=== PATIENT | female | born 1975 | race Caucasian/White ===

== ENCOUNTER → 2019-11-17 15:47 | Outpatient (BNVA) | payer OTHER, SELFPAY | PROVIDERS: Family Provider Internal Medicine; PCP Internal Medicine; Visit Provider Internal Medicine | DX: E10.9 Type 1 diabetes mellitus without complications (principal); E11.9 Type 2 diabetes mellitus without complications; E66.9 Obesity, unspecified; R30.0 Dysuria | CPT/HCPCS: 83036; 85025 ==

== ENCOUNTER 2020-07-03 12:04 | Outpatient (CLI) | payer BC, SELFPAY ==
[2020-07-03 12:26] VITALS: BMI 32.4
--- NOTE | 2020-07-03 12:37 | PC.NURSE ---
Pt rescheduled Pt on schedule as treadmill stress test with no nuclear images. Order reads treadmill stress and in comments with nuclear imaging . Pt rescheduled d/t no nuclear dose ordered d/t scheduled incorrectly. Scheduling called and states pt will need to be re-certified for correct test and will call pt with appt date and time.
== END 2020-07-03 12:05 | disposition home or self-care (01) ==
PROVIDERS: PCP Internal Medicine; Visit Provider Internal Medicine
DX: R07.89 Other chest pain (principal)
CPT/HCPCS: 80053; 80061; 83036; 83550; 84443; 85025

== ENCOUNTER 2020-08-01 07:22 | Outpatient (CLI) | payer BC, SELFPAY ==
[2020-08-01 07:32] VITALS: BMI 33.6
--- NOTE | 2020-08-01 07:38 | ECG_ITS ---
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 Interpretive Statements NAME OF STUDY: EXERCISE SESTAMIBI STRESS TEST INDICATION: [Atypical Chest Pain] EXERCISE DATA: The patient was exercised by Juan Pablo protocol. Baseline heart rate was 97 beats per minute. Baseline blood pressure was 136/80 millimeters of mercury. Target heart rate was 148 beats per minute. Maximum heart rate achieved was 167, which was 112% of the target heart rate. Maximum blood pressure was 214/79millimeters of mercury. Total exercise time was 5 minutes 43 seconds. Maximum METs achieved was 7, maximum VO2 was 24.5. The reason for ending the test was achievement of target heart rate. The patient complained of shortness of breath during the stress test, which then resolved at the end of the test. ELECTROCARDIOGRAM: BASELINE: Showed sinus rhythm, normal axis, no significant ST-T changes at the baseline noted. [] EXERCISE: At the peak exercise level, [] No significant ST-T changes suggestive of ischemia noted. [] RECOVERY: During the recovery period, heart rate dropped appropriately. No significant ST-T changes in the recovery suggestive of ischemia noted. [] CONCLUSION: 1. Exercise capacity fair. 2. Heart rate response was appropriate 3. Blood pressure response was hypertensive 4. Symptoms not suggestive of ischemia. 5. Electrocardiogram portion of the stress test was not suggestive of ischemia. 6. Nuclear scan will be documented separately. Electronically Signed On 08-12-2020 12:14:28 CDT by Jorden Moreno M.D. [id number]
--- NOTE | 2020-08-01 07:39 | NMCV_ITS ---
NM desire perf SPECT r/s* [id number] Melina Hopknis Age: 45 Gender: F : 1975 Exam Date: 08/01/2020 08:50 Ordering Phys: Magdi Ricks MD Technologist: DIEGO Petit Exam Location: [facility] Indications: CHEST PAIN STRESS TEST Please see separate stress test report in Ephiphany for full findings IMAGE PROTOCOL Rest/Stress 1 Exercise Day Radiopharmaceutical Dose (mCi) Administration Site Administered by Rest: Tc-99m 10.8 IV DIEGO Petit Sestamibi Stress:Tc-99m 32.7 IV DIEGO White Sestamibi Rest: 01-Aug-2020 60 Discovery 630 Stress: 01-Aug-2020 15 Discovery 630 Radiopharmaceutical was injected at 87 % maximum heart rate. Images obtained in supine and prone position. SPECT RESULTS Technical Quality: Excellent Raw Data Analysis: Normal, Breast attenuation Image Corrections: No attenuation or motion correction applied Summed Stress Score: 2 Summed Rest Score: 1 Summed Difference Score: 2 PERFUSION FINDINGS There is a small in size, partially reversible perfusion defect in the apical lateral wall. FUNCTIONAL RESULTS (calculated via Gated SPECT) Stress Image LV EF (%): 81 Stress EDV (mL):36 TID: 0.68 Stress ESV (mL):7 FUNCTIONAL FINDINGS: There is normal left ventricular systolic function. IMPRESSIONS 1. There is a small in size, mild in intensity, partially reversible perfusion defect in apical latera wall. It likely represents prior small infarct with mild roselyn-infarct ischemia. 2. LV systolic function is normal Jorden Moreno MD (Electronically Signed) Final Date: 01 August 2020 11:49 S
[2020-08-01 10:15] VITALS: BP 136/87; PULSE 105
== END 2020-08-01 07:23 | disposition home or self-care (01) ==
LOC: CDL 07:24
PROVIDERS: PCP Internal Medicine; Visit Provider Internal Medicine
DX: R07.89 Other chest pain (principal)
CPT/HCPCS: 78452; 93017; A9500

== ENCOUNTER 2020-09-11 05:55 | Day surgery (SDC) | payer BC, SELFPAY ==
[2020-09-08 08:37] LABS: Basophils # 0.1 10^3/uL (0.0-0.1); Basophils % 0.7 %; Eosinophils # 0.3 10^3/uL (0.0-0.8); Eosinophils % 2.7 %; Hematocrit 42.6 % (37.0-47.0); Hemoglobin 14.1 g/dL (11.5-15.3); Lymphocytes # 2.3 10^3/uL (0.8-4.8); Lymphocytes % 24.4 %; Mean Corpuscular HGB Conc 33.1 g/dL (30.0-36.0); Mean Corpuscular Hemoglobin 29.5 pg (28.0-34.0); Mean Corpuscular Volume 89.1 fL (81-99); Mean Platelet Volume 11.4 fL (7.4-10.4); Monocytes # 0.6 10^3/uL (0.2-0.9); Monocytes % 6.7 %; Neutrophils # 6.24 10^3/uL (1.8-7.7); Neutrophils % 65.3 %; Nucleated Red Blood Cells % 0 %; Platelet Count 133 10^3/cmm (130-400); Red Blood Count 4.78 10^6/uL (4.1-5.3); Red Cell Distribution Width 12.4 % (12.1-15.1); White Blood Count 9.6 10^3/uL (4.0-10.0)
[2020-09-08 08:55] LABS: Anion Gap 13.1 (5-19); Blood Urea Nitrogen 17 mg/dL (6-20); Calcium 8.3 mg/dL (8.5-10.5); Carbon Dioxide 27 mmol/L (22-29); Chloride 98 mmol/L (98-107); Glomerular Filtration Rate 77.6 mL/min (90-130); Glucose 241 mg/dL (65-115); Osmolality Calculated 287 mOsm/kg (285-295); Potassium 4.1 mmol/L (3.5-5.1); Sodium 134 mmol/L (136-145)
[2020-09-08 09:19] LABS: INR 0.95 (0.83-1.21)
[2020-09-11] VITALS (62 sets, daily range): BP systolic 91–145; BP diastolic 44–92; PULSE 76–96; RESP 7–29; TEMP 36.6–36.7; O2SAT 94–99; BMI 31.5
--- NOTE | 2020-09-11 06:00 | XACV_ITS ---
Ht: 160 cm Wt: 85 kg BSA: 1.98 m2 Gender: Female : 1975 Any Known Allergies: Other Exam Priority: Routine Procedure(s): Procedure Description: Diagnostic procedure Procedure Description: PCI procedure Procedure Description: Drug Eluting Coronary Stent Procedure Description: PTCA Procedure Description: Coronary Angiography Diagnostic Cath Status: Elective Diagnostic Findings * INDICATION: Dyspnea on exertion/chest pain/ abnormal stress test. * Left Main has no significant disease. * Circumflex has no significant disease. * Mid Left Anterior Descending: significant 75% stenosis, ELISABETH: 3 flow. * Proximal Right Coronary Artery: significant 80% stenosis, ELISABETH: 3 flow. * Mid Right Coronary Artery to Distal Right Coronary Artery: significant 80% stenosis, ELISABETH: 3 flow. * Distal Right Coronary Artery: significant 80% stenosis, ELISABETH: 3 flow. * Coronary angiography shows right dominance. PCI Status: Elective PCI Indication: Other Interventional Findings * PROCEDURE DETAIL: We engaged left main artery with a JL 3.5 guide catheter. IV heparin was administered to maintain an ACT above 250 seconds. A 0.014 run-through guidewire was used to cross the stenosis and was placed in distal LAD. We used a 2.25 x 15 mm semicompliant balloon to predilate the stenosis in the mid LAD. This was followed by deployment of a 2.5x30mm Resolute Lyndon drug eluting stent. At this time final angiogram was performed that showed excellent stent expansion, ELISABETH-3 flow and no residual stenosis. Guidewire and guide catheter. * Mid Left Anterior Descendin% stenosis treated with a AB TREK 2.25X15 RX BALLOON, and MDT R LYNDON 2.5X30 SONIDO. 0% residual stenosis, ELISABETH: 3 flow. Conclusions 1. There is significant coronary artery disease with two vessel disease. 2. Mid Left Anterior Descending was treated with a Balloon, and Drug Eluting Stent. Recommendations * Transfer to CSU. * Aspirin and plavix for atleast 1 year. * High intensity statin therapy. * We will plan on staged PCI of the proximal to distal RCA in 3-4 weeks. * Outpatient cardiology follow up in 7 -10 days. Interventional RX Recommendation: PCI w/o planned CABG Diagnostic RX Recommendation: PCI w/o planned CABG Anticoagulation: Heparin Pressures Phase:Rest AO : 118 / 83 ( 93 ) @ 7:13:00 AM Clinical Evaluation EBL: 5mL-10mL Procedural Details Procedure Consent Obtained. Pre-Procedure Time Out. Identified patient by full name and date of as verbalized by the patient/guarantor. Does the consent match the physician's order: Yes. Accurate & Complete Informed Consent: Yes. Inpatient/Outpatient History & Physical on Chart: Yes. If H&P is completed, is and addenduem needed: No; If yes, is the addendum complete: N/A. Visualize and Verify Site with Patient/Guarantor: N/A. Relevant Radiology Images available: N/A. Pre-op teaching completed and patient verbalized understanding. The risks, benefits, and alternatives of sedation and/or procedure were discussed by physician. The patient agrees to continue. Procedure started. [facility] Clinical Fraility Score: 3: Managing Well. Shingle Inspector Indications: Worsening Angina, abnormal stress test. Chest Pain Symptom Assessment: Atypical Angina. Cardiovascular Instability: No. Correct patient, site and procedure confirmed by cath team. PERRLA. Strong, equal hand behavioral specialist bilaterally. Lungs clear x 5 lobes. IV Site on Arrival: 20 gauge in the left anticubital. IV Fluids: 0.9% NaCl at KVO. 0 mL infused prior to test lab technician. Pre Procedural Pulses: right dorsalis pedis was 2+. Pre Procedural Pulses: left dorsalis pedis was Doppled. Pre Procedural Pulses: bilateral posterior tibial was Doppled. Pre Procedural Pulses: right radial was 2+. Oxygen started at 2liters/min via nasal canula. right groin was prepped with chloroprep then draped in the usual sterile fashion. right radial was prepped with chloroprep then draped in the usual sterile fashion. Baseline sample Acquired. HR: 88 BPM. Equipment: 6F - Radial. Cardiac Cath Pack. ACIST Manifold Kit Model BT 2000. Heparinized Saline (2 units/mL), 1000 mL bag. Physician notified. Physician arrived. Physician scrubbed in. Immediate Pre-Procedure Time Out. Correct Patient: Yes; Correct Procedure: Yes; Correct Site: Yes; Correct Patient Position: Yes; Correct Supplies: Yes; Dried Flammable Prep: Yes; Blood Products Available: N/A;. Lidocaine 1% infiltrated to the right radial. Arterial access obtained. Unable to use Radial access due to spasm. Physician moving to femoral approach. A TR Band was successful obtaining hemostatsis at the Right Radial artery insertion site. TR band placed. Hemostasis obtained. Lidocaine 1% infiltrated to the right groin. Arterial access obtained with micropuncture set. A 5 dutch JL4 catheter in over wire. Catheter removed over the standard wire. A 5 dutch JR4 catheter in over wire. Multiple views taken of right coronary artery. Catheter removed over the standard wire. A 5 dutch JL3.5 catheter in over wire. Multiple views taken of left coronary artery. Catheter removed over the standard wire. Attempt to call Dr Ferguson to discuss case. No answer. Attempt to call Dr Jackson. He is currently scrubbed in the OR. Sheath flushed periodically to maintain patency. Inventory is CRD 6FR XB 3 GUIDE. 6 dutch XB 3 guide catheter was inserted over the wire. Guide catheter out. Inventory is CRD 6FR JL 3.5 GUIDE. 6 dutch JL 3.5 guide catheter was inserted over the wire. Runthrough guidewire was advanced through the guide catheter to lesion in the prox LAD. Wire out. Runthrough guidewire was advanced through the guide catheter to lesion in the mid LAD. Wire out. Family updated. Runthrough guidewire was advanced through the guide catheter to lesion in the mid LAD. Inflation number : 1 A AB TREK 2.25X15 RX BALLOON was prepped and advanced across the Mid LAD , then inflated to 0 [place] for 0:12 seconds. Inflation number: 2 The AB TREK 2.25X15 RX BALLOON was reinflated across the Mid LAD, to 12 [place] for 0:27 seconds. Inflation number: 3 The AB TREK 2.25X15 RX BALLOON was reinflated across the Mid LAD, to 12 [place] for 0:29 seconds. Balloon out. Results checked. Inflation Number : 4 A FAITH Rodríguez LYNDON 2.5X30 SONIDO -Lot Number# [id number] exp date 02/20/2022 was prepped and advanced across the Mid LAD. The stent was deployed at 12 [place] for 0:27 seconds. Stent balloon out over wire. Results checked. Wire out. Guide catheter out. A Suture was successful obtaining hemostatsis at the Right Femoral artery insertion site. Sheath(s) sutured into position with 2-0 silk and sterile 4x4's and Op-site applied over the site. No oozing or signs and symptoms of hematoma noted. Arterial sheath flushed and connected to tranducer and pressure bag with heparinized saline. Post Procedure: Pulses reassessed and unchanged. PERRLA. Strong, equal hand behavioral specialist bilaterally. No VTE prophylaxis required. Physician scrubbed out. Contrast type used: Omnipaque 300 mgI/mL, 500 mL bottle. Post-op diagnosis: severe mid LAD and RCA stenosis. Complications: none. Estimated blood loss: 5mL-10mL. PCI Indication: abnormal stress test, MID LAD stenosis and RCA stenosis. Total IV fluids: 100 mL. Medication's Wasted: Lidocaine 1% = 10 mL. Medication's Wasted: Nitro = 49.6 mg. Medication's Wasted: Verapamil = 5 mg. Medication's Wasted: Heparin = 1000 units. Medication's Wasted: Other = versed 1 mg. Procedure completed. Patient transferred by bed to 1st floor. Vital chart was stopped. Access Site Site: Right Radial artery Sheath Size: 6 Fr Hemostasis Method: TR Band Hemostasis Success: Successful Site: Right Femoral artery Sheath Size: 6 Fr Hemostasis Method: Suture Hemostasis Success: Successful Procedure Medications Start: 7:45 AM Stop: 7:45 AM Medication: Versed Amount: 1 mg Route: I.V. Start: 7:45 AM Stop: 7:45 AM Medication: Fentanyl Amount: 25 mcg Route: I.V. Start: 7:55 AM Stop: 7:55 AM Medication: Fentanyl Amount: 25 mcg Route: I.V. Start: 7:56 AM Stop: 7:56 AM Medication: Nitrogylcerin Amount: 200 mcg Route: I.A. Start: 7:57 AM Stop: 7:57 AM Medication: Versed Amount: 1 mg Route: I.V. Start: 8:31 AM Stop: 8:31 AM Medication: Heparin Amount: 8000 units Route: I.V. Start: 8:33 AM Stop: 8:33 AM Medication: Versed Amount: 1 mg Route: I.V. Start: 8:35 AM Stop: 8:35 AM Medication: Fentanyl Amount: 25 mcg Route: I.V. Start: 8:40 AM Stop: 8:40 AM Medication: Fentanyl Amount: 25 mcg Route: I.V. Start: 8:51 AM Stop: 8:51 AM Medication: Nitrogylcerin Amount: 200 mcg Route: I.C. Start: 8:55 AM Stop: 8:55 AM Medication: Aggrastat 12.5 mg/250 mL Amount: 43 ml Route: I.V. bolus Start: 8:55 AM Stop: 8:55 AM Medication: Aggrastat 12.5 mg/250 mL Amount: 15.5 ml/hr Route: I.V. bolus Start: 9:01 AM Stop: 9:01 AM Medication: Plavix Amount: 600 mg Route: P.O. I, the attending physician, have reviewed and verified all procedure medications. Yes, all medications given per verbal order History/Risk Factors Hypertension: Yes Dyslipidemia: Yes Peripheral Arterial Disease (PAD): No Myocardial Infarction (IN): No Obesity: No Renal Disease: No Prior Interventions PCI: No CABG: No Valve Surgery: No Report Signatures Finalized by Jorden Moreno MD on 09/18/2020 02:26 PM
[2020-09-11] MEDS: diphenhydrAMINE 50 mg Capsule PO (06:32)
[2020-09-11 06:39] LABS: SARS Covid-2 Antigen Negative (Negative)
--- NOTE | 2020-09-11 07:46 | P.HP_ITS ---
Same Day Surgery H&P Indication for Procedure/HPI DATE OF PROCEDURE: September 11, 2020 CHIEF COMPLAINT/INDICATIONFOR SURGICAL PROCEDURE: Dyspnea on exertion/abnormal stress test PREOP DIAGNOSIS: Dyspnea on exertion/abnormal stress test PLANNED PROCEDRUE: Operation Date: 09/11/20 07:00 Proposed Procedures p left Cardiac Catheterization 49722 r94.39(Left) - Jorden Moreno M.D Possible percutaneous coronary intervention 45 yo woman with PMHx of type 1 DM since age 6 ([id number]-4), HTN, hypothyroidism, gestational hypertension, CKD and family h/o CAD. She complained of chest pressure, SOB, palpitations and nausea. Patient underwent stress test that was abnormal ROS CONSTITUTIONAL: No fever chills weight loss or gain or night sweats. [] HEENT: Normocephalic, atraumatic.[] RESPIRATORY: No cough, sputum, hemoptysis or wheezing.[] CARDIOVASCULAR: Has shortness of breath, chest pain,no PND, orthopnea, lower extremity edema, presyncope or syncope. [] GI: no nausea vomiting diarrhea. [] PAPER GOODS MACHINE OPERATOR: No numbness, tingling, weakness or loss of function in any part of the body. [] MUSCULOSKELETAL: No knee or joint pain or rashes. [] Medications/Allergies* Home Medications Medication Instructions Recorded Confirmed Type aspirin 325 mg tablet 325 mg PO DAILY 08/08/20 09/08/20 History omega-3 fatty acids [Fish Oil 1 tab PO BID 08/08/20 09/08/20 History Concentrate] losartan 100 mg PO DAILY 09/08/20 09/08/20 History Allergies/Adverse Reactions Allergy/AdvReac Type Severity Reaction Status Date / Time sulfamethoxazole Allergy Unknown Verified 08/08/20 09:55 [From Bactrim] trimethoprim [From Bactrim] Allergy Unknown Verified 08/08/20 09:55 vancomycin Allergy Unknown Verified 08/08/20 09:55 codeine AdvReac ADR-Vomitin Verified 08/08/20 09:55 g Current Medications: Generic Name Dose Route Start Last Admin Trade Name Freq PRN Reason Stop Dose Admin Sodium Chloride 1,000 mls @ 50 mls/hr 09/11/20 06:00 09/11/20 06:33 Sodium Chloride 0.9% IV 09/12/20 01:59 Not Given .Q20H ONE Pertinent History/Comorbid Conditions* Medical History (Updated 08/10/20 @ 21:42 by Maru Ferguson MD) DM type 1 (diabetes mellitus, type 1) Dyslipidemia Obesity Family History (Updated 08/08/20 @ 09:41 by Antonietta Townsend RN) Diabetes Father CAD (coronary artery disease) Father Arthritis Father FH: CABG (coronary artery bypass surgery) Father x3 Social History Smoking and tobacco status: never smoked Alcohol intake: never Adopted: No Marital status: Number of children: 1 service: No History of recent travel: No Pertinent Exam Findings alert, oriented x 3, clear to auscultation bilaterally and regular rate & rhythm Conscious Sedation Assessment PATIENT ASSESSED PRIOR TO SEDATION, WITH NO CHANGE NOTED: Yes AIRWAY EVAL/ANESTHESIA PLAN: normal airway, ASA III, Monitored Anesthesia, Local Anesthesia, Risks, benefits & alternatives of sedation and/or procedure di scussed and Patient agrees to continue as planned Recommendations Surgery/Procedure today (Left heart cath with possible percutaneous coronary intervention) Coding Level of Care Code Acute Pigment And Lacquer Mixer for Chente Harrell
[2020-09-11] MEDS: sodium chloride 0.9% 1,000 ML 100 ML IV (09:39)
--- NOTE | 2020-09-11 09:54 | PC.NURSE ---
Patient to CSU from metallurgy laboratory technician at 0915. 2 nurse verification of right radial and groin access sites, asymptomatic. Aggrastat running at 15.5 ml/hr. Patient educated on activity restrictions, verbalized understanding of teaching and did not have any further questions. Patient oriented room and call light. Nurse to continue to monitor.
--- NOTE | 2020-09-11 10:59 | PC.NURSE ---
Patient unable to void on bed bennett, bladder distended and painful. Dr. Moreno notified. telephone order to place mcdonald while on bedrest. Discontinue once patient can ambulate. RBTO.
--- NOTE | 2020-09-11 11:06 | PC.NURSE ---
Aggrastat off at this time per written order.
[2020-09-11 12:56] LABS: Partial Thromboplastin Time 87.2 SECONDS (23.9-36.7)
--- NOTE | 2020-09-11 14:14 | PC.NURSE ---
TR band removed at 1400. Air removed slowly per protocol. Site asymptomatic. Dressing applied, CDI. Patient tolerated well. Patient reeducated on activity restrictions, verbalized understanding. Nurse to continue to monitor.
--- NOTE | 2020-09-11 16:00 | PC.NURSE ---
Sheath pull Sheath pulled at 1542 per protocol. Direct pressure held for 20 minutes until hemostasis achieved. Patient tolerated well. Incision asymptomatic. Dressing applied. Patient reeducated on activity restrictions. Verbalized understanding. Nurse to continue to monitor.
--- NOTE | 2020-09-11 18:29 | PC.NURSE ---
Patient brought home medication bottles. Nurse compared to med rec. Med rec was updated. Dr. Moreno notified. Telephone order to continue metoprolol tartrate and atorvastatin. RBTO.
[2020-09-11] MEDS: metoprolol tartrate 25 mg Tablet PO (21:03)
[2020-09-12 03:47] VITALS: BP 138/70; PULSE 85; RESP 21; TEMP 36.8; O2SAT 98
[2020-09-12 05:04] LABS: Basophils # 0.1 10^3/uL (0.0-0.1); Basophils % 0.4 %; Eosinophils # 0.4 10^3/uL (0.0-0.8); Eosinophils % 3.6 %; Hematocrit 42.4 % (37.0-47.0); Hemoglobin 13.9 g/dL (11.5-15.3); Lymphocytes # 2.2 10^3/uL (0.8-4.8); Lymphocytes % 19.5 %; Mean Corpuscular HGB Conc 32.8 g/dL (30.0-36.0); Mean Corpuscular Hemoglobin 29.1 pg (28.0-34.0); Mean Corpuscular Volume 88.9 fL (81-99); Mean Platelet Volume 10.8 fL (7.4-10.4); Monocytes # 0.7 10^3/uL (0.2-0.9); Neutrophils # 7.87 10^3/uL (1.8-7.7); Neutrophils % 70.1 %; Nucleated Red Blood Cells % 0 %; Platelet Count 131 10^3/cmm (130-400); Red Blood Count 4.77 10^6/uL (4.1-5.3); Red Cell Distribution Width 12.6 % (12.1-15.1); White Blood Count 11.3 10^3/uL (4.0-10.0)
[2020-09-12 05:20] VITALS: PULSE 81
[2020-09-12 05:28] LABS: Anion Gap 10.7 (5-19); Blood Urea Nitrogen 14 mg/dL (6-20); Calcium 8.4 mg/dL (8.5-10.5); Carbon Dioxide 29 mmol/L (22-29); Chloride 103 mmol/L (98-107); Creatinine Clr Calc Pharmacy 102.1161; Glomerular Filtration Rate 90.5 mL/min (90-130); Glucose 67 mg/dL (65-115); Osmolality Calculated 287 mOsm/kg (285-295); Potassium 3.7 mmol/L (3.5-5.1); Sodium 139 mmol/L (136-145)
[2020-09-12 07:49] VITALS: BP 133/69; PULSE 89; RESP 16; TEMP 37.1; O2SAT 97
--- NOTE | 2020-09-12 08:43 | P.DS_ITS ---
Discharge Providers Date of Admission: September 11, 2020 Date of Discharge: September 12, 2020 Attending Provider at Admission: Jorden Moreno MD Attending Provider at Discharge: Jorden Moreno M.D Primary Care Provider: Magdi Ricks MD Reason for Visit Reason for Visit: [facility] Brief History: 45 yo woman with PMHx of type 1 DM since age 6 (HiP0W-7), HTN, hypothyroidism, gestational hypertension, CKD and family h/o CAD. She complained of chest pressure, SOB, palpitations and nausea. Patient underwent stress test that was abnormal. Plan for left heart cath with possible percutaneous coronary intervention Hospital Course Hospital Course 45 yo woman with PMHx of type 1 DM since age 6 (RjA7T-1), HTN, hypothyroidism, gestational hypertension, CKD and family h/o CAD. She complained of chest pressure, SOB, palpitations and nausea. Patient underwent stress test that was abnormal Left heart cath showed severe multiple RCA stenosis with poor target for bypass. She also had a severe mid LAD stenosis which underwent successful revascularization with SONIDO. Plan for staged revascularization of the RCA in 3-4 weeks. She was put on aspirin and plavix. Overnight was observed. Access site normal without any complaints. Patient discharged in a stable condition. Physical Exam Narrative: EXAM NARRATIVE: GENERAL: Patient is alert, awake and oriented x3. [] NECK: No jugular vein distension. [] HEENT: No cyanosis. No icterus. No pallor. [] HEART: Regular S1 and S2. No murmur, rub or gallop. [] LUNGS: Clear to auscultate bilaterally. [] ABDOMEN: Soft, nontender and nondistended. Positive bowel sounds. No guarding, rebound or tenderness. [] CENTRAL NERVOUS SYSTEM: Grossly nonfocal. [] EXTREMITIES: Lower extremities with no edema bilaterally. Pulses palpable in the lower extremities, both dorsalis pedis and posterior tibial. 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 Routin e Exams 09/11/20 06:00 Taken Labs from last 24 hours 09/12/20 09/12/20 09/11/20 04:26 04:26 14:13 WBC 11.3 H RBC 4.77 Hgb 13.9 Hct 42.4 MCV 88.9 MCH 29.1 MCHC 32.8 RDW 12.6 Plt Count 131 MPV 10.8 H Neut % (Auto) 70.1 Lymph % (Auto) 19.5 [place] % (Auto) 6.0 Eos % (Auto) 3.6 Baso % (Auto) 0.4 Neut # (Auto) 7.87 H Lymph # (Auto) 2.2 [place] # (Auto) 0.7 Eos # (Auto) 0.4 Baso # (Auto) 0.1 Nucleated RBC % (a uto) 0 Nucleated RBCs # 0.0 APTT 31.0 D Sodium 139 Potassium 3.7 Chloride 103 Carbon Dioxide 29 Anion Gap 10.7 BUN 14 Creatinine 0.7 GFR Calculation 90.5 Glucose 67 Calculated Osmolal ity 287 Calcium 8.4 L 09/11/20 12:15 WBC RBC Hgb Hct MCV MCH MCHC RDW Plt Count MPV Neut % (Auto) Lymph % (Auto) [place] % (Auto) Eos % (Auto) Baso % (Auto) Neut # (Auto) Lymph # (Auto) [place] # (Auto) Eos # (Auto) Baso # (Auto) Nucleated RBC % (a uto) Nucleated RBCs # APTT 87.2 H Sodium Potassium Chloride Carbon Dioxide Anion Gap BUN Creatinine GFR Calculation Glucose Calculated Osmolal ity Calcium Vitals: Last Vital Signs Temp 98.7 F 09/12/20 07:49 Pulse 89 09/12/20 07:49 Resp 16 09/12/20 07:49 BP 133/69 09/12/20 07:49 Pulse Ox 97 09/12/20 07:49 Discharge Plan Discharge Patient Disposition: Home Condition: Stable Prescriptions: New aspirin 81 mg Tablet,Delayed Release (Dr/Ec) 81 mg PO DAILY Qty: 90 RF: 3 Continued losartan 100 mg Tablet 100 mg PO DAILY RF: 0 spironolacton-hydrochlorothiaz 25-25 mg Tablet 1 tab PO DAILY RF: 0 levothyroxine 150 mcg Tablet 150 mcg PO DAILY RF: 0 montelukast 10 mg Tablet 10 mg PO DAILY RF: 0 duloxetine 60 mg Capsule, Delayed Rel Sprinkle 60 mg PO DAILY RF: 0 metoprolol tartrate 25 mg tablet 25 mg PO BID RF: 0 red yeast rice 600 mg Capsule 1,200 mg PO DAILY RF: 0 Changed atorvastatin 20 mg tablet 40 mg PO BEDTIME Qty: 0 RF: 0 Discontinued aspirin 325 mg Tablet 325 mg PO DAILY RF: 0 No Action Brilinta 90 mg tablet 90 mg PO BID Qty: 60 RF: 0 prednisone 10 mg tablet 10 mg PO BID Qty: 14 RF: 0 Humalog KwikPen Insulin 100 unit/mL insulin pen See Rx Instructions .ROUTE .COMPLEX RF: 0 [place] 3 Fish Oil 1,000 mg PO DAILY RF: 0 (DME) Omnipod Insulin Management RF: 0 insulin lispro See Rx Instructions .ROUTE .COMPLEX RF: 0 Benadryl 50 mg Capsule 50 mg PO TID RF: 0 famotidine 20 mg Tablet 20 mg PO BID RF: 0 Discharge Orders: Discharge Order (Routine); Ordered 09/12/20 Ordered By: Jorden Moreno Referrals: Rhonda Moss FNP [Nurse Practitioner] - 7-10 days (Please follow-up with Rhonda Moss on September 19 at 10:00A.M. If you have any questions or need to reschedule. Please call ) Maru Ferguson MD [Physician] - 1 month (Please follow-up with Dr. Ferguson on October 13 at 8:45A.M. If youhave any questions or need to reschedule. Please call ) Discharge Diet: Cardiac and Diabetic Discharge Activity: Increase activity as tolerated Patient Instructions: Clopidogrel (By mouth), Left Heart Catheterization (DC), Post Angiogram Home Care Instructions Activity Restrictions/Additional Instructions: Please do not lift more than 5 pounds of weight for the next 5 days Discharge Attestations Time Spent in Discharge Care*: less than 30 min Quality Metrics Clinical Quality Measures During this hospital stay, did patient experience: None Coding Level of Care Code Acute Chg FW DC note
[2020-09-12] MEDS: duloxetine 60 mg Capsule PO (09:08)
[2020-09-12] MEDS: aspirin 81 mg EC Tablet PO (09:09)
[2020-09-12] MEDS: clopidogrel 75 mg Tablet PO (09:10)
[2020-09-12] MEDS: levothyroxine 150 mcg Tablet PO (09:10)
[2020-09-12 09:11] VITALS: BP 111/64
[2020-09-12] MEDS: losartan 50 mg Tablet 100 MG PO (09:11)
[2020-09-12] MEDS: metoprolol tartrate 25 mg Tablet PO (09:13)
[2020-09-12 09:29] VITALS: BP 111/64; PULSE 90; RESP 12
[2020-09-12 09:30] VITALS: BP 111/64; PULSE 79; RESP 18; TEMP 36.7; O2SAT 93
== END 2020-09-12 09:45 | disposition home or self-care (01) ==
LOC: CCL 05:56 → CSU 09:14
PROVIDERS: Internal Medicine Cardiovascular Disease; PCP Internal Medicine; Visit Provider Internal Medicine
DX: I25.10 Atherosclerotic heart disease of native coronary artery without angina pectoris (principal); R07.89 Other chest pain; E03.9 Hypothyroidism, unspecified; E11.22 Type 2 diabetes mellitus with diabetic chronic kidney disease; I12.9 Hypertensive chronic kidney disease with stage 1 through stage 4 chronic kidney disease, or unspecified chronic kidney disease; N18.9 Chronic kidney disease, unspecified; Z82.49 Family history of ischemic heart disease and other diseases of the circulatory system; E78.5 Hyperlipidemia, unspecified; E66.9 Obesity, unspecified; Z68.31 Body mass index [BMI] 31.0-31.9, adult; Z83.3 Family history of diabetes mellitus
CPT/HCPCS: 36415; 51702; 80048; 85025; 85610; 85730; 87426; 93454; C1725; C1769; C1874; C1887; C1894; C9600; J1644; J2250; J3010; J3246; J3490; J7030; Q0163; Q9967

== ENCOUNTER 2020-09-16 16:41 | Inpatient (IN) | payer BC, SELFPAY ==
[2020-09-16 17:08] VITALS: BP 120/74; PULSE 105; RESP 16; TEMP 37.3; O2SAT 97; BMI 32.5
[2020-09-16 17:43] VITALS: BP 128/74; PULSE 105; RESP 20; O2SAT 98
--- NOTE | 2020-09-16 17:43 | ECG_ITS ---
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 [id number]
--- NOTE | 2020-09-16 17:46 | W.ED.SKABFB ---
Documented by User: Deo Hassan DO 09/18/20 07:51 HPI - Skin/Abscess/Foreign Bdy General: Chief complaint: Skin/Abscess/Foreign Body Stated complaint: Rash; High BS; RCR fever; Phyllis sent over Time Seen by Provider: 09/16/20 17:20 History of Present Illness: HPI narrative: 45-year-old female presents with a petechial rash. On 09 11 she had an angiogram done had a single drug-eluting stent placed and then was started on Plavix she was discharged home the next day after single dose of Plavix regaining the rest gotten progressively worse since then she seen Dr. Dozier yesterday she been taking Benadryl she was started on steroids and was changed to Brilinta presents today because the rash is actually worsening no chest pain no tightness no shortness of breath. Patient is diabetic and is noted blood sugars have been exceptionally high. She usually uses an insulin pump and has very good control now she is taking it regularly above 400. complaint: rash Onset (ago): minute(s) Location: generalized Quality: pruritic Relieving factors: medication (Antihistamines) and other Context: new medication Associated symptoms: Reports itching; Deny arthralgias, chills, cough, fever(s), myalgias, nausea, rigidity, short of breath or vomiting Treatments prior to arrival: none Review of Systems Const: Denies: fever(s) or chills ENMT: Denies: throat pain, ear or mastoid pain, nasal discharge or nasal congestion Card: Denies: chest pain, edema, dyspnea on exertion or orthopnea Resp: Denies: dyspnea, productive cough or non-productive cough GI: Denies: nausea or vomiting : Denies: flank pain, difficulty voiding, dysuria, urinary frequency or urinary urgency Skin/Breast: Reports: rash; Denies: pruritus PFSH ED PFSH: Medical History CAD (coronary artery disease) Diabetic retinopathy DM type 1 (diabetes mellitus, type 1) Dyslipidemia Gestational hypertension Hypothyroidism Obesity Surgical History History of appendectomy (08/05/14) with lysis of adhesions History of History of cholecystectomy History of eye surgery multiple both eyes for retinopathy, legally blind right eye S/P cardiac catheterization (09/11/20) S/P coronary artery stent placement (09/11/20) Family History Father CAD (coronary artery disease) Diabetes FH: CABG (coronary artery bypass surgery) x3 Arthritis Social History Smoking and tobacco status: never smoked Alcohol intake: never Adopted: No Marital status: Number of children: 1 service: No History of recent travel: No Physical Exam Skin: NARRATIVE SKIN EXAM: Purpuric rash prominent at the extremities but is systemic also more coalesced on high pressure areas buttocks back etc. No skin breakdown or ulceration. Course Vital Signs: Vital signs: Vital Signs Temperature 97.9 F 09/18/20 04:00 Pulse Rate 79 09/18/20 04:00 Respiratory Rate 18 09/18/20 04:00 Blood Pressure 122/69 09/18/20 04:00 Pulse Oximetry 97 09/18/20 04:00 MDM - Skin/Abscess/Foreign Bdy MDM Narrative: Medical decision making narrative: Care turned over to Dr. Nj at change of shift. Obvious concern with her purpuric rashes thrombocytopenia induced by the clopidogrel. She is already been changed to Brilinta and started on oral steroids. Management difficulty will be in protecting the drug-eluting stent while managing her reaction to antiplatelet therapy. Discussed Dr. Nj see his notes for final diagnosis and disposition. Lab Data: Labs: Lab Results 09/16/20 09/16/20 09/16/20 Range/Units 18:20 18:20 18:20 WBC 20.4 H (4.0-10.0) 10^3/ uL RBC 4.45 (4.1-5.3) 10^6/u L Hgb 13.2 (11.5-15.3) g/dL Hct 39.5 (37.0-47.0) % MCV 88.8 (81-99) fL MCH 29.7 (28.0-34.0) pg MCHC 33.4 (30.0-36.0) g/dL RDW 12.6 (12.1-15.1) % Plt Count 90 L (130-400) 10^3/c mm MPV 11.0 H (7.4-10.4) fL Neut % (Auto) 90.1 % Lymph % (Auto) 3.1 % [place] % (Auto) 1.6 % Eos % (Auto) 4.3 % Baso % (Auto) 0.1 % Neut # (Auto) 18.33 H (1.8-7.7) 10^3/u L Lymph # (Auto) 0.6 L (0.8-4.8) 10^3/u L [place] # (Auto) 0.3 (0.2-0.9) 10^3/u L Eos # (Auto) 0.9 H (0.0-0.8) 10^3/u L Baso # (Auto) 0.0 (0.0-0.1) 10^3/u L Nucleated RBC % (a uto) 0 % Nucleated RBCs # 0.0 /100WBC ESR 35 H (0-15) mm/hr Sodium 132 L (136-145) mmol/L Potassium 3.7 (3.5-5.1) mmol/L Chloride 96 L (98-107) mmol/L Carbon Dioxide 24 (22-29) mmol/L Anion Gap 15.7 (5-19) BUN 16 (6-20) mg/dL Creatinine 0.8 (0.5-0.9) mg/dL GFR Calculation 77.6 L (90-130) mL/min Glucose 166 H (65-115) mg/dL Calculated Osmolal ity 279 L (285-295) mOsm/k g Calcium 8.2 L (8.5-10.5) mg/dL Total Bilirubin 0.4 (0.15-1.2) mg/dL AST 12 (0-32) U/L ALT 14 (0-33) U/L Alkaline Phosphata se 61 (35-105) IU/L Creatine Kinase 19 L (26-192) U/L C-Reactive Protein (0.0-4.9) mg/L Total Protein 6.4 L (6.6-8.7) g/dL Albumin 3.3 L (3.5-5.2) g/dL Globulin 3.1 (1.3-4.6) g/dL Urine Color (Yellow) Urine Appearance (CLEAR) Urine pH (5-7) Ur Specific Gravit y (1.005-1.030) Urine Protein (Negative) Urine Glucose (UA) (Normal) Urine Ketones (Negative) Urine Blood (Negative) Urine Nitrate (Negative) Urine Bilirubin (Negative) Urine Urobilinogen (Negative) mg/dL Ur Leukocyte Holly ase (Negative) Urine RBC (0-2) /hpf Urine WBC (0-5) /hpf Ur Squamous Epith Cells (0-5) /hpf Amorphous Sediment Urine Bacteria (NONE) /hpf Urine Yeast /hpf 09/16/20 09/16/20 Range/Units 18:20 18:51 WBC (4.0-10.0) 10^3/ uL RBC (4.1-5.3) 10^6/u L Hgb (11.5-15.3) g/dL Hct (37.0-47.0) % MCV (81-99) fL MCH (28.0-34.0) pg MCHC (30.0-36.0) g/dL RDW (12.1-15.1) % Plt Count (130-400) 10^3/c mm MPV (7.4-10.4) fL Neut % (Auto) % Lymph % (Auto) % [place] % (Auto) % Eos % (Auto) % Baso % (Auto) % Neut # (Auto) (1.8-7.7) 10^3/u L Lymph # (Auto) (0.8-4.8) 10^3/u L [place] # (Auto) (0.2-0.9) 10^3/u L Eos # (Auto) (0.0-0.8) 10^3/u L Baso # (Auto) (0.0-0.1) 10^3/u L Nucleated RBC % (a uto) % Nucleated RBCs # /100WBC ESR (0-15) mm/hr Sodium (136-145) mmol/L Potassium (3.5-5.1) mmol/L Chloride (98-107) mmol/L Carbon Dioxide (22-29) mmol/L Anion Gap (5-19) BUN (6-20) mg/dL Creatinine (0.5-0.9) mg/dL GFR Calculation (90-130) mL/min Glucose (65-115) mg/dL Calculated Osmolal ity (285-295) mOsm/k g Calcium (8.5-10.5) mg/dL Total Bilirubin (0.15-1.2) mg/dL AST (0-32) U/L ALT (0-33) U/L Alkaline Phosphata se (35-105) IU/L Creatine Kinase (26-192) U/L C-Reactive Protein 81.5 H (0.0-4.9) mg/L Total Protein (6.6-8.7) g/dL Albumin (3.5-5.2) g/dL Globulin (1.3-4.6) g/dL Urine Color Yellow (Yellow) Urine Appearance Sl hazy (CLEAR) Urine pH 5 (5-7) Ur Specific Gravit y 1.015 (1.005-1.030) Urine Protein 1+ H (Negative) Urine Glucose (UA) 4+ H (Normal) Urine Ketones Negative (Negative) Urine Blood Neg (Negative) Urine Nitrate Negative (Negative) Urine Bilirubin Neg (Negative) Urine Urobilinogen Norm (Negative) mg/dL Ur Leukocyte Holly ase Negative (Negative) Urine RBC None (0-2) /hpf Urine WBC Rare (0-5) /hpf Ur Squamous Epith Cells 5-10 H (0-5) /hpf Amorphous Sediment Not Reportable Urine Bacteria 2+ H (NONE) /hpf Urine Yeast 1+ H /hpf Discharge Plan Discharge Patient Disposition: Admitted As Inpatient Admit Provider: Ade Arredondo Clinical Impression: Vasculitis of skin Condition: Stable Coding Level of Care Code ED Credit Balance Specialist for Chg 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 Documented by User: Selma Nj MD 09/16/20 20:15 HPI - Skin/Abscess/Foreign Bdy General: Chief complaint: Skin/Abscess/Foreign Body Stated complaint: Rash; High BS; RCR fever; Phyllis sent over Time Seen by Provider: 09/16/20 17:20 PFSH ED PFSH: Medical History CAD (coronary artery disease) Diabetic retinopathy DM type 1 (diabetes mellitus, type 1) Dyslipidemia Gestational hypertension Hypothyroidism Obesity Surgical History History of appendectomy (08/05/14) with lysis of adhesions History of History of cholecystectomy History of eye surgery multiple both eyes for retinopathy, legally blind right eye S/P cardiac catheterization (09/11/20) S/P coronary artery stent placement (09/11/20) Family History Father CAD (coronary artery disease) Diabetes FH: CABG (coronary artery bypass surgery) x3 Arthritis Social History Smoking and tobacco status: never smoked Alcohol intake: never Adopted: No Marital status: Number of children: 1 service: No History of recent travel: No Physical Exam Const: COMMON NORMALS: no acute distress, patient oriented x3 and healthy appearing HENMT: COMMON NORMALS: normocephalic and atraumatic HEAD & SCALP: normocephalic and atraumatic Eye: COMMON NORMALS: Equal, round and reactive pupils present and EOMs intact bilaterally PUPIL: Yes Equal, round and reactive pupils present Neck/C-Spine: COMMON NORMALS: full ROM and supple Chest: COMMONS NORMALS: normal inspection of the chest and normal palpation of entire chest wall Resp: COMMON NORMALS: normal respiratory effort, No retractions, No use of accessory muscles and clear to auscultation bilaterally AUSCULTATION: clear to auscultation bilaterally Cardio: COMMON NORMALS: regular rate, regular rhythm and No murmurs present (Cardio) RATE: regular rate RHYTHM: regular rhythm GI: COMMON NORMALS: Normal to inspection, nondistended, normoactive bowel sounds present, Soft to palpation, non-tender and no masses PALPATION: Yes Soft to palpation Extremity: COMMON NORMALS: normal to inspection and full ROM Neuro: COMMON NORMALS: patient oriented x3, moves all extremities and no focal motor deficits Psych: COMMON NORMALS: mental status grossly normal, Normal thought process present and cooperative THOUGHT PROCESS: Normal thought process present Skin: COMMON NORMALS: no rashes or lesions noted and no wounds NARRATIVE SKIN EXAM: Palpable purpuric rash to the legs and trunk GENERAL SKIN EXAM: no rashes or lesions noted Course Vital Signs: Vital signs: Vital Signs Temperature 97.9 F 09/18/20 04:00 Pulse Rate 79 09/18/20 04:00 Respiratory Rate 18 09/18/20 04:00 Blood Pressure 122/69 09/18/20 04:00 Pulse Oximetry 97 09/18/20 04:00 MDM - Skin/Abscess/Foreign Bdy MDM Narrative: Medical decision making narrative: Patient presents here with a vasculitic rash with palpable purpura to her legs and abdomen. Could be due to medications. Did start patient on IV steroids and talk to hospitalist along with her home health care respiratory therapist and will admit at this time. Lab Data: Labs: Lab Results 09/16/20 09/16/20 09/16/20 Range/Units 18:20 18:20 18:20 WBC 20.4 H (4.0-10.0) 10^3/ uL RBC 4.45 (4.1-5.3) 10^6/u L Hgb 13.2 (11.5-15.3) g/dL Hct 39.5 (37.0-47.0) % MCV 88.8 (81-99) fL MCH 29.7 (28.0-34.0) pg MCHC 33.4 (30.0-36.0) g/dL RDW 12.6 (12.1-15.1) % Plt Count 90 L (130-400) 10^3/c mm MPV 11.0 H (7.4-10.4) fL Neut % (Auto) 90.1 % Lymph % (Auto) 3.1 % [place] % (Auto) 1.6 % Eos % (Auto) 4.3 % Baso % (Auto) 0.1 % Neut # (Auto) 18.33 H (1.8-7.7) 10^3/u L Lymph # (Auto) 0.6 L (0.8-4.8) 10^3/u L [place] # (Auto) 0.3 (0.2-0.9) 10^3/u L Eos # (Auto) 0.9 H (0.0-0.8) 10^3/u L Baso # (Auto) 0.0 (0.0-0.1) 10^3/u L Nucleated RBC % (a uto) 0 % Nucleated RBCs # 0.0 /100WBC ESR 35 H (0-15) mm/hr Sodium 132 L (136-145) mmol/L Potassium 3.7 (3.5-5.1) mmol/L Chloride 96 L (98-107) mmol/L Carbon Dioxide 24 (22-29) mmol/L Anion Gap 15.7 (5-19) BUN 16 (6-20) mg/dL Creatinine 0.8 (0.5-0.9) mg/dL GFR Calculation 77.6 L (90-130) mL/min Glucose 166 H (65-115) mg/dL Calculated Osmolal ity 279 L (285-295) mOsm/k g Calcium 8.2 L (8.5-10.5) mg/dL Total Bilirubin 0.4 (0.15-1.2) mg/dL AST 12 (0-32) U/L ALT 14 (0-33) U/L Alkaline Phosphata se 61 (35-105) IU/L Creatine Kinase 19 L (26-192) U/L C-Reactive Protein (0.0-4.9) mg/L Total Protein 6.4 L (6.6-8.7) g/dL Albumin 3.3 L (3.5-5.2) g/dL Globulin 3.1 (1.3-4.6) g/dL Urine Color (Yellow) Urine Appearance (CLEAR) Urine pH (5-7) Ur Specific Gravit y (1.005-1.030) Urine Protein (Negative) Urine Glucose (UA) (Normal) Urine Ketones (Negative) Urine Blood (Negative) Urine Nitrate (Negative) Urine Bilirubin (Negative) Urine Urobilinogen (Negative) mg/dL Ur Leukocyte Holly ase (Negative) Urine RBC (0-2) /hpf Urine WBC (0-5) /hpf Ur Squamous Epith Cells (0-5) /hpf Amorphous Sediment Urine Bacteria (NONE) /hpf Urine Yeast /hpf 09/16/20 09/16/20 Range/Units 18:20 18:51 WBC (4.0-10.0) 10^3/ uL RBC (4.1-5.3) 10^6/u L Hgb (11.5-15.3) g/dL Hct (37.0-47.0) % MCV (81-99) fL MCH (28.0-34.0) pg MCHC (30.0-36.0) g/dL RDW (12.1-15.1) % Plt Count (130-400) 10^3/c mm MPV (7.4-10.4) fL Neut % (Auto) % Lymph % (Auto) % [place] % (Auto) % Eos % (Auto) % Baso % (Auto) % Neut # (Auto) (1.8-7.7) 10^3/u L Lymph # (Auto) (0.8-4.8) 10^3/u L [place] # (Auto) (0.2-0.9) 10^3/u L Eos # (Auto) (0.0-0.8) 10^3/u L Baso # (Auto) (0.0-0.1) 10^3/u L Nucleated RBC % (a uto) % Nucleated RBCs # /100WBC ESR (0-15) mm/hr Sodium (136-145) mmol/L Potassium (3.5-5.1) mmol/L Chloride (98-107) mmol/L Carbon Dioxide (22-29) mmol/L Anion Gap (5-19) BUN (6-20) mg/dL Creatinine (0.5-0.9) mg/dL GFR Calculation (90-130) mL/min Glucose (65-115) mg/dL Calculated Osmolal ity (285-295) mOsm/k g Calcium (8.5-10.5) mg/dL Total Bilirubin (0.15-1.2) mg/dL AST (0-32) U/L ALT (0-33) U/L Alkaline Phosphata se (35-105) IU/L Creatine Kinase (26-192) U/L C-Reactive Protein 81.5 H (0.0-4.9) mg/L Total Protein (6.6-8.7) g/dL Albumin (3.5-5.2) g/dL Globulin (1.3-4.6) g/dL Urine Color Yellow (Yellow) Urine Appearance Sl hazy (CLEAR) Urine pH 5 (5-7) Ur Specific Gravit y 1.015 (1.005-1.030) Urine Protein 1+ H (Negative) Urine Glucose (UA) 4+ H (Normal) Urine Ketones Negative (Negative) Urine Blood Neg (Negative) Urine Nitrate Negative (Negative) Urine Bilirubin Neg (Negative) Urine Urobilinogen Norm (Negative) mg/dL Ur Leukocyte Holly ase Negative (Negative) Urine RBC None (0-2) /hpf Urine WBC Rare (0-5) /hpf Ur Squamous Epith Cells 5-10 H (0-5) /hpf Amorphous Sediment Not Reportable Urine Bacteria 2+ H (NONE) /hpf Urine Yeast 1+ H /hpf EKG Data^: EKG 1: Attestation: I personally reviewed and interpreted this EKG as follows: EKG Interpretation Date: 09/16/20 EKG interpretation time: 18:13 Interpretation: sinus tach hr [address] or t wave abnormalities qrs 74 qtc 383 Discharge Plan Discharge Patient Disposition: Admitted As Inpatient Admit Provider: Ade Arredondo Clinical Impression: Vasculitis of skin Condition: Stable Coding Level of Care Code ED Credit Balance Specialist for Chg 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
[2020-09-16] MEDS: hyDROXYzine 25 mg Capsule PO (18:12)
[2020-09-16 18:26] LABS: Basophils % 0.1 %; Eosinophils # 0.9 10^3/uL (0.0-0.8); Eosinophils % 4.3 %; Hematocrit 39.5 % (37.0-47.0); Hemoglobin 13.2 g/dL (11.5-15.3); Lymphocytes # 0.6 10^3/uL (0.8-4.8); Lymphocytes % 3.1 %; Mean Corpuscular HGB Conc 33.4 g/dL (30.0-36.0); Mean Corpuscular Hemoglobin 29.7 pg (28.0-34.0); Mean Corpuscular Volume 88.8 fL (81-99); Monocytes # 0.3 10^3/uL (0.2-0.9); Monocytes % 1.6 %; Neutrophils # 18.33 10^3/uL (1.8-7.7); Neutrophils % 90.1 %; Nucleated Red Blood Cells % 0 %; Platelet Count 90 10^3/cmm (130-400); Red Blood Count 4.45 10^6/uL (4.1-5.3); Red Cell Distribution Width 12.6 % (12.1-15.1); White Blood Count 20.4 10^3/uL (4.0-10.0)
[2020-09-16 18:41] LABS: Alanine Aminotransferase 14 U/L (0-33); Albumin Level 3.3 g/dL (3.5-5.2); Alkaline Phosphatase 61 IU/L (35-105); Anion Gap 15.7 (5-19); Aspartate Amino Transferase 12 U/L (0-32); Blood Urea Nitrogen 16 mg/dL (6-20); Calcium 8.2 mg/dL (8.5-10.5); Carbon Dioxide 24 mmol/L (22-29); Chloride 96 mmol/L (98-107); Creatine Phosphokinase 19 U/L (26-192); Globulin 3.1 g/dL (1.3-4.6); Glomerular Filtration Rate 77.6 mL/min (90-130); Glucose 166 mg/dL (65-115); Osmolality Calculated 279 mOsm/kg (285-295); Potassium 3.7 mmol/L (3.5-5.1); Sodium 132 mmol/L (136-145); Total Bilirubin 0.4 mg/dL (0.15-1.2); Total Protein 6.4 g/dL (6.6-8.7)
--- NOTE | 2020-09-16 18:51 | XRR_ITS ---
PROCEDURE INFORMATION: Exam: XR Chest Exam date and time: 09/16/2020 6:51 PM Age: 45 years old Clinical indication: Dyspnea; Additional info: Cp TECHNIQUE: Imaging protocol: XR of the chest. Views: 1 view. COMPARISON: CR Chest 1 [place] [id number] 07/20/2014 4:44 PM FINDINGS: Limitations: The study is made with less than full inspiration. Lungs: Visualized portions of the lungs are clear. Pleural spaces: Unremarkable. No pleural effusion. No pneumothorax. Heart/Mediastinum: Heart is within normal limits of size. Bones/joints: Unremarkable. XR/XR chest 1V portable [id number] IMPRESSION: No acute infiltrates.
[2020-09-16 19:04] LABS: Glucose Urine UA 4+ (Normal); Protein Urine 1+ (Negative); Specific Gravity, Urine 1.015 (1.005-1.030); Urine Appearance SL Hazy (CLEAR); Urine Color Yellow (Yellow); pH Urine 5 (5-7)
[2020-09-16 19:06] LABS: Add Urine Microscopic? YES; Bilirubin Urine Neg (Negative); Blood Urine Neg (Negative); Ketones Urine Negative (Negative); Leukocyte Esterase Urine Negative (Negative); Nitrate Urine Negative (Negative); Urobilinogen Urine Norm (Negative)
[2020-09-16 19:09] LABS: Bacteria Urine 2+ /hpf; WBC Urine RARE /hpf (0-5)
[2020-09-16 19:10] LABS: Add Urine Culture? Yes
[2020-09-16 20:03] LABS: C Reactive Protein 81.5 mg/L (0.0-4.9)
--- NOTE | 2020-09-16 20:25 | P.HP_ITS ---
Providers/Chief Complaint Admitting Physician: Ade Arredondo MD Primary Care Provider: Magdi Ricks MD Chief Complaint: Rash; High BS; subjective fever; Phyllis sent over History of Present Illness Melina Hopkins is a 45 year old female with type 1 diabetes mellitus who presented to the emergency room with progressively worsening rash all over and subjective fevers. She had had a positive stress test last week. She underwent cardiac catheterization with stent placement on September 11. She was prescribed Plavix post procedure. Within 2 hours of taking the dose on September 12, she developed a rash that began on her lower extremities and extended upward. Rash was pruritic in nature, erythematous and urticarial. Dr. Jauregui changed her from Plavix to Brilinta and gave her some oral steroids. Despite this the rash has worsened and now extends from her feet to her face. It involves intertriginous areas. She has had extensive itching not well relieved with Benadryl. She has had some subjective fevers and her skin has felt hot all over. In her upper thighs she has had some mild desquamation. Her skin was tender when it was touched for IV placement but she does not complain of skin pain. She has not had any mucosal sores in her nose, oropharynx or genital region. She denies any grittiness or pain in her eyes. No photophobia. She does have some itching on her scalp. She has not had any bleeding anywhere. She has had generalized aches and pains and fatigue/malaise. Stools were looser than normal today but no diarrhea. No nausea or vomiting. No trouble swallowing. She has not had further chest pain. She does still have some mild dyspnea on exertion. Work up in the emergency room showed a white count of 20,000 with increased neutrophils and decreased absolute lymphocytes. Eosinophils were just above normal range. Platelet count was noted to be low at 90 however hemoglobin was normal. LFTs were normal. She has pulled one tick off of her within the last month or 2. No other new medications introduced this week although she was started on me toprolol and atorvastatin at the end of August. No other known exposures. Given the progressive skin findings despite outpatient management combined with laboratory abnormalities she is being admitted for further evaluation and treatment. Review of Systems Const: Reports: fever(s) (subjective) and chills; Denies: change in appetite or change in weight Eyes: Denies: change in vision, photophobia, eye discomfort, eye redness or dry eyes ENMT: Denies: throat pain, odynophagia, mouth pain, swelling of lips/tongue, oral sores, bleeding gums or nasal congestion Card: Reports: dyspnea on exertion (mild); Denies: chest pain (none since stent placed), palpitations, edema or orthopnea Resp: Denies: productive cough or non-productive cough GI: Denies: abdominal pain, nausea, vomiting, diarrhea, constipation, pain on defecation, rectal pain, hematochezia or melena : Denies: difficulty voiding, hematuria, genital lesions (no sores/pain), genital pruritis or vaginal dryness Musc: Reports: back pain; Denies: extremity pain, joint swelling, limited range of motion or muscle cramps Skin/Breast: Reports: rash (started legs, spread all over), pruritus, erythema, skin tenderness (noted with IV placement, not with palpation), skin swelling and other (skin feels hot all over); Denies: skin pain Neuro: Denies: headache(s), numbness in extremities, weakness in extremities, difficulty walking or confusion Psych: Denies: anxiety or depression [place]zo/Lymph: Denies: easy bruising, easy bleeding or petechiae All/Imm: Reports: urticaria; Denies: throat swelling, tongue swelling, facial swelling or itchy eyes Medications/Allergies Home Medications Medication Instructions Recorded Confirmed Last Taken Type duloxetine 60 mg PO DAILY 09/11/20 09/16/20 09/13/20 History levothyroxine 150 mcg PO DAILY 09/11/20 09/16/20 09/16/20 History losartan 100 mg PO DAILY 09/11/20 09/16/20 09/13/20 History metoprolol tartrate 25 mg PO BID 09/11/20 09/16/20 09/13/20 History montelukast 10 mg PO DAILY 09/11/20 09/16/20 09/16/20 History red yeast rice 1,200 mg PO DAILY 09/11/20 09/16/20 09/13/20 History spironolacton-hydrochlorothiaz 1 tab PO DAILY 09/11/20 09/16/20 09/13/20 History aspirin 81 mg PO DAILY #90 tab 09/12/20 09/16/20 09/16/20 Rx atorvastatin 40 mg PO BEDTIME #0 tab 09/12/20 09/16/20 09/13/20 Rx ticagrelor 90 mg tablet 90 mg PO BID #60 tab 09/13/20 09/16/20 09/16/20 Rx prednisone 10 mg tablet 10 mg PO BID #14 tab 09/15/20 09/16/20 09/16/20 Rx [place] 3 Fish Oil 1,000 mg PO DAILY 09/16/20 09/16/20 09/13/20 History Omnipod Insulin Management 09/16/20 09/16/20 Unknown History diphenhydramine HCl [Benadryl] 50 mg PO TID 09/16/20 09/16/20 09/16/20 History famotidine 20 mg PO BID 09/16/20 09/16/20 09/16/20 History insulin lispro See Rx Instructions .ROUTE .COMPLEX 09/16/20 09/16/20 09/16/20 History insulin lispro [Humalog KwikPen See Rx Instructions .ROUTE .COMPLEX 09/16/20 09/16/20 09/16/20 History Insulin] Allergies Allergy/AdvReac Type Severity Reaction Status Date / Time clopidogrel Allergy Intermediate rash Verified 09/13/20 09:42 sulfamethoxazole Allergy Unknown Verified 08/08/20 09:55 [From Bactrim] trimethoprim [From Bactrim] Allergy Unknown Verified 08/08/20 09:55 vancomycin Allergy Unknown Verified 08/08/20 09:55 codeine AdvReac ADR-Vomitin Verified 08/08/20 09:55 g Additional Medication Information I personally reviewed home medication list and medications received day of admis shashank thus far. PFSH Acute PFSH: Medical History (Updated 09/17/20 @ 05:43 by Ade Arredondo MD) CAD (coronary artery disease) Diabetic retinopathy DM type 1 (diabetes mellitus, type 1) Dyslipidemia Gestational hypertension Hypothyroidism Obesity Surgical History (Updated 09/16/20 @ 21:12 by Ade Arredondo MD) History of appendectomy (08/05/14) with lysis of adhesions History of History of cholecystectomy History of eye surgery multiple both eyes for retinopathy, legally blind right eye S/P cardiac catheterization (09/11/20) S/P coronary artery stent placement (09/11/20) Family History Father CAD (coronary artery disease) Diabetes FH: CABG (coronary artery bypass surgery) x3 Arthritis Social History Smoking and tobacco status: never smoked Alcohol intake: never Adopted: No Marital status: Number of children: 1 service: No History of recent travel: No Female Reproductive History: : 2 Para: 1 Other female reproductive history: lost a twin Vitals/I&O/Wt Last Vital Signs Temp 99.1 F 09/16/20 17:08 Pulse 105 H 09/16/20 17:43 Resp 20 H 09/16/20 17:43 BP 128/74 09/16/20 17:43 Pulse Ox 98 09/16/20 17:43 Weight last 48 hrs Weight 80.739 kg Physical Exam Narrative: EXAM NARRATIVE: Constitutional: Awake and alert, looks uncomfortable, cooperative, able to provide history HEENT: Normocephalic, atraumatic, extraocular movements are intact, no visible sores in nasopharynx, no tongue tesions, no mucosal sores in the mouth, no pharyngeal petechiae noted, moist mucous membranes, no lesions noted to the lips. She does have a few patches of erythema on her scalp but not near to the extent seen elsewhere. Neck: Supple Respiratory: Clear to auscultation bilaterally Cardiovascular: Tachycardic, no murmurs or rubs, right groin site is intact to the point that with rash I am not even able to see exactly where the skin puncture was, 2+ pulses Abdomen: Soft, nontender, nondistended, positive bowel sounds : Visual inspection of the vulva, urethra and introitus show moist pink mucosal surfaces without any ulcerations or other lesions noted Extremities: No pitting edema, no palpable joint effusions, insulin delivery system in place Skin: Patient has extensive maculopapular erythematous exanthem from her feet to her head, including her trunk. It spares the palms and soles. All intertri ginous areas are a very confluent bright red erythema. On the distal lower extremities from the knee down there is a general erythema with raised raised papules with almost purpuric appearing centers. Her skin is warm to touch everywhere that it is red but it is not particularly tender to touch. There is some mild desquamation in the upper thighs medially where her legs rub together. There are no pustules or blisters noted. Psych: Normal affect Data : 09/16/20 18:20 09/16/20 18:20 Other data: Laboratory Results WBC 20.4 10^3/uL (4.0-10.0) H 09/16/20 18:20 RBC 4.45 10^6/uL (4.1-5.3) 09/16/20 18:20 Hgb 13.2 g/dL (11.5-15.3) 09/16/20 18:20 Hct 39.5 % (37.0-47.0) 09/16/20 18:20 MCV 88.8 fL (81-99) 09/16/20 18:20 MCH 29.7 pg (28.0-34.0) 09/16/20 18:20 MCHC 33.4 g/dL (30.0-36.0) 09/16/20 18:20 RDW 12.6 % (12.1-15.1) 09/16/20 18:20 Plt Count 90 10^3/cmm (130-400) L 09/16/20 18:20 MPV 11.0 fL (7.4-10.4) H 09/16/20 18:20 Neut % (Auto) 90.1 % 09/16/20 18:20 Lymph % (Auto) 3.1 % 09/16/20 18:20 [place] % (Auto) 1.6 % 09/16/20 18:20 Eos % (Auto) 4.3 % 09/16/20 18:20 Baso % (Auto) 0.1 % 09/16/20 18:20 Neut # (Auto) 18.33 10^3/uL (1.8-7.7) H 09/16/20 18:20 Lymph # (Auto) 0.6 10^3/uL (0.8-4.8) L 09/16/20 18:20 [place] # (Auto) 0.3 10^3/uL (0.2-0.9) 09/16/20 18:20 Eos # (Auto) 0.9 10^3/uL (0.0-0.8) H 09/16/20 18:20 Baso # (Auto) 0.0 10^3/uL (0.0-0.1) 09/16/20 18:20 Nucleated RBC % (auto) 0 % 09/16/20 18:20 Nucleated RBCs # 0.0 /100WBC 09/16/20 18:20 ESR 35 mm/hr (0-15) H 09/16/20 18:20 Sodium 132 mmol/L (136-145) L 09/16/20 18:20 Potassium 3.7 mmol/L (3.5-5.1) 09/16/20 18:20 Chloride 96 mmol/L (98-107) L 09/16/20 18:20 Carbon Dioxide 24 mmol/L (22-29) 09/16/20 18:20 Anion Gap 15.7 (5-19) 09/16/20 18:20 BUN 16 mg/dL (6-20) 09/16/20 18:20 Creatinine 0.8 mg/dL (0.5-0.9) 09/16/20 18:20 GFR Calculation 77.6 mL/min (90-130) L 09/16/20 18:20 Glucose 166 mg/dL (65-115) H 09/16/20 18:20 Calculated Osmolality 279 mOsm/kg (285-295) L 09/16/20 18:20 Calcium 8.2 mg/dL (8.5-10.5) L 09/16/20 18:20 Total Bilirubin 0.4 mg/dL (0.15-1.2) 09/16/20 18:20 AST 12 U/L (0-32) 09/16/20 18:20 ALT 14 U/L (0-33) 09/16/20 18:20 Alkaline Phosphatase 61 IU/L (35-105) 09/16/20 18:20 Creatine Kinase 19 U/L (26-192) L 09/16/20 18:20 C-Reactive Protein 81.5 mg/L (0.0-4.9) H 09/16/20 18:20 Total Protein 6.4 g/dL (6.6-8.7) L 09/16/20 18:20 Albumin 3.3 g/dL (3.5-5.2) L 09/16/20 18:20 Globulin 3.1 g/dL (1.3-4.6) 09/16/20 18:20 Urine Color Yellow (Yellow) 09/16/20 18:51 Urine Appearance Sl hazy (CLEAR) 09/16/20 18:51 Urine pH 5 (5-7) 09/16/20 18:51 Ur Specific [place] 1.015 (1.005-1.030) 09/16/20 18:51 Urine Protein 1+ (Negative) H 09/16/20 18:51 Urine Glucose (UA) 4+ (Normal) H 09/16/20 18:51 Urine Ketones Negative (Negative) 09/16/20 18:51 Urine Blood Neg (Negative) 09/16/20 18:51 Urine Nitrate Negative (Negative) 09/16/20 18:51 Urine Bilirubin Neg (Negative) 09/16/20 18:51 Urine Urobilinogen Norm mg/dL (Negative) 09/16/20 18:51 Ur Leukocyte Esterase Negative (Negative) 09/16/20 18:51 Urine RBC None /hpf (0-2) 09/16/20 18:51 Urine WBC Rare /hpf (0-5) 09/16/20 18:51 Ur Squamous Epith Cells 5-10 /hpf (0-5) H 09/16/20 18:51 Amorphous Sediment Not Reportable 09/16/20 18:51 Urine Bacteria 2+ /hpf (NONE) H 09/16/20 18:51 Urine Yeast 1+ /hpf H 09/16/20 18:51 Prior or outside records reviewed: Reviewed [facility] records A&P Assessment and plan (1) Drug-induced skin rash: Culprit appears to be Plavix, especially with the timing of symptom onset after starting Plavix. She had also started atorvastatin about a week prior. Involvement is quite extensive. Early SJS/TEN is a consideration however currently she does not have mucosal or ocular involvement, painful skin, blistering suggestive of such. Other immune/inflammatory processes are also w ithin the differential but current pattern of involvement fairly classic for drug eruption. Status: Acute (2) Thrombocytopenia: Likely medication induced, with Plavix, Brilinta and anticoagulation administered during cardiac catheterization, in addition to statin therapy, aspirin, Pepcid, among others. Tickborne illness has to be considered but LFTs are normal. Microangiopathic process also within the differential, particularly with skin findings, however less likely as not anemic at this point in time. Status: Acute (3) S/P coronary artery stent placement: No complaints of chest pain though has been short of breath Status: Acute (4) DM type 1 (diabetes mellitus, type 1): Chronically with insulin delivery device, A1c was 9 in June of this year down from 10 in November of last year Status: Chronic Qualifiers: Diabetes mellitus complication status: without complication Qualified Code(s): E10.9 - Type 1 diabetes mellitus without complications Additional A&P Information Dyslipidemia Hypothyroidism Inpatient admission IV steroids currently however we will have to watch blood sugar response closely, transition to oral steroids as soon as able Continue Benadryl, Pepcid, Singulair Hold atorvastatin currently Check PT and PTT, repeat platelet count Check tick titers -I did inform patient that we would be checking, have not in itiated empiric doxycycline as I might in some people this time of year with low platelets given other probable explanations for thrombocytopenia, normal LFTs and extensive skin rash. Repeat CRP in the morning Monitor for development of fever Continue aspirin and Brilinta Continue metoprolol and losartan Currently holding spironolactone and hydrochlorothiazide Low volume IV fluids Continue home basal insulin, add sliding scale insulin on top of this given steroids Continue home levothyroxine and duloxetine Supportive care otherwise Reviewed with patient her the importance of avoiding extensive sun exposure with her skin in the current condition and even after her skin starts to heal as she will be at greater risk for significant sunburn Consultants: Dr. Ferguson Pending/ordered tests/procedures to follow: Tick titers DVT prophylaxis: None currently secondary to low platelets and extensive skin rash on distal extremities requiring close monitoring Plans, findings and concerns discussed with patient and her and they were given an opportunity to ask questions. Anticipated Disposition: Home Code Status: Full code Attestations Medical Necessity Statement*: Anticipated stay greater than two midnights in this patient with extensive drug- induced rash and thrombocytopenia that has not responded to outpatient measures. At risk of progression to a more serious and even potentially life-threatening skin condition, particularly with reported subjective fevers and increasing mal aise. Requiring IV fluids, IV steroids, adjustments to medications and close monitoring for changes. In addition she has coronary artery disease status post stent placement within the past week and needs to be monitored to ensure that she can maintain appropriate therapy for this. 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
--- NOTE | 2020-09-16 20:29 | P.CONIM_ITS ---
Providers/Reason For Consult Consulting Physician/Specialty*: Dr. Ferguson, Cardiology Reason for Consult*: Skin rash, subjective fever and recent SONIDO placement Attending Physician: Ade Arredondo MD Primary Care Provider: Magdi Ricks MD History of Present Illness History of Present Illness Melina Hopkins is a 45 year old female with PMHx of type 1 DM since age 6 ([id number]-7), HTN, hypothyroidism, gestational hypertension, CKD and family h/o CAD. She has family h/o CAD in father with [place] at age 47 in 1997 and CABGx 4 later on. She was evaluated initially for chest pressure, SOB, palpitations and nausea. She underwent stress test and with mild abnormalities in apical lateral wall. She underwent coronary angiogram by Dr. Moreno on 09/11 and was found to have severe mid LADand mutiple Px, mid and distal RCA lesions. She underwent SONIDO to mid LAD with plan for staged PCI of RCA. She was discharged on ASA, plavix on 09/12. She called on Friday with complains of onset of pruritic rash and was started on benaryl without much improvement. On she was switched to B rillinta with addition of pepcid and scheduled benadryl. On Friday, Joaquin (her ) stopped by the office and I spoke to Melina and prednisone was added as her rash continued to spread. She had a low grade fever with myalgia, runny nose and flu like symptoms per symptoms. She decided to come to the hospital as the rash worsened and Blood sugar increased. Review of Systems Const: Denies: fever(s), chills or body aches Eyes: Denies: change in vision or blurry vision ENMT: Denies: throat pain, hoarseness or mouth pain Card: Reports: chest pain (pressure ), palpitations (racing), swelling of feet/ankles, lightheadedness and dyspnea on exertion; Denies: syncope or pre-syncope Resp: Denies: dyspnea, productive cough, non-productive cough or wheezing GI: Denies: abdominal pain, nausea, vomiting, hematemesis, coffee ground emesis, dysphagia or heartburn : Denies: flank pain, difficulty voiding or urinary urgency Musc: Reports: back pain (lower) and joint pain (bilateral hands); Denies: muscle cramps Skin/Breast: Reports: rash, pruritus and erythema; Denies: photosensitivity or skin pain Neuro: Reports: headache(s) and vertigo; Denies: dizziness Psych: Denies: anxiety, depression, mood swings, suicidal ideation or homicidal ideation Endo: Denies: polyuria, polydipsia or excessive sweating Alonzo/Lymph: Denies: easy bruising or easy bleeding All/Imm: Reports: urticaria; Denies: throat swelling, tongue swelling, facial swelling, acute wheezing, itchy eyes, seasonal rhinorrhea or food intolerance Meds/Allergies Home Medications and Allergies Home Medications Medication Instructions Recorded Confirmed Last Taken Type duloxetine 60 mg PO DAILY 09/11/20 09/16/20 09/13/20 History levothyroxine 150 mcg PO DAILY 09/11/20 09/16/20 09/16/20 History losartan 100 mg PO DAILY 09/11/20 09/16/20 09/13/20 History metoprolol tartrate 25 mg PO BID 09/11/20 09/16/20 09/13/20 History montelukast 10 mg PO DAILY 09/11/20 09/16/20 09/16/20 History red yeast rice 1,200 mg PO DAILY 09/11/20 09/16/20 09/13/20 History spironolacton-hydrochlorothiaz 1 tab PO DAILY 09/11/20 09/16/20 09/13/20 History aspirin 81 mg PO DAILY #90 tab 09/12/20 09/16/20 09/16/20 Rx atorvastatin 40 mg PO BEDTIME #0 tab 09/12/20 09/16/20 09/13/20 Rx ticagrelor 90 mg tablet 90 mg PO BID #60 tab 09/13/20 09/16/20 09/16/20 Rx prednisone 10 mg tablet 10 mg PO BID #14 tab 09/15/20 09/16/20 09/16/20 Rx [place] 3 Fish Oil 1,000 mg PO DAILY 09/16/20 09/16/20 09/13/20 History Omnipod Insulin Management 09/16/20 09/16/20 Unknown History diphenhydramine HCl [Benadryl] 50 mg PO TID 09/16/20 09/16/20 09/16/20 History famotidine 20 mg PO BID 09/16/20 09/16/20 09/16/20 History insulin lispro See Rx Instructions .ROUTE .COMPLEX 09/16/20 09/16/20 09/16/20 History insulin lispro [Humalog KwikPen See Rx Instructions .ROUTE .COMPLEX 09/16/20 09/16/20 09/16/20 History Insulin] Allergies Allergy/AdvReac Type Severity Reaction Status Date / Time clopidogrel Allergy Intermediate rash Verified 09/13/20 09:42 sulfamethoxazole Allergy Unknown Verified 08/08/20 09:55 [From Bactrim] trimethoprim [From Bactrim] Allergy Unknown Verified 08/08/20 09:55 vancomycin Allergy Unknown Verified 08/08/20 09:55 codeine AdvReac ADR-Vomitin Verified 08/08/20 09:55 g PFSH Acute PFSH: Medical History CAD (coronary artery disease) Diabetic retinopathy DM type 1 (diabetes mellitus, type 1) Dyslipidemia Gestational hypertension Hypothyroidism Obesity Surgical History History of appendectomy (08/05/14) with lysis of adhesions History of History of cholecystectomy History of eye surgery multiple both eyes for retinopathy, legally blind right eye S/P cardiac catheterization (09/11/20) S/P coronary artery stent placement (09/11/20) Family History Father CAD (coronary artery disease) Diabetes FH: CABG (coronary artery bypass surgery) x3 Arthritis Social History Smoking and tobacco status: never smoked Alcohol intake: never Adopted: No Marital status: Number of children: 1 service: No History of recent travel: No Vitals/I&O/Wt Last Vital Signs Temp 99.1 F 09/16/20 17:08 Pulse 105 H 09/16/20 17:43 Resp 20 H 09/16/20 17:43 BP 128/74 09/16/20 17:43 Pulse Ox 98 09/16/20 17:43 Weight last 48 hrs Weight 178 lb Physical Exam Narrative: EXAM NARRATIVE: Gen:NAD HEENT/NECK: PEERL, EOMI, No pallor or icterus CVS: S1, S2 regular, tachycardia+ RS: CTAB/L, No wheezing or rales 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 minimal involvement of palms. No mucosal involvement. A&P Assessment and plan (1) Drug-induced skin rash: Clopidogrel vs contrast associated (less likely). -DRESS may be a consideration however given normal liver and kidney functions and no systemic involvement. -Urine eposinophil, eosinophil increased, increased WBC, ANC, decreased lymphocy te. Increased ESR and CRP -start on IV solumedrol. Status: Acute (2) CAD (coronary artery disease): Recent SONIDO to mid LAD -on ASA and Brilinta. will continue for now. -statin, metoprolol was held yesterday. May resume. -f/u on echo. Status: Chronic Qualifiers: Associated angina: without angina Coronary Disease-Associated Artery/Lesion type: [place] artery [place] vs. transplanted heart: [place] heart Qualified Code(s): I25.10 - Atherosclerotic heart disease of [place] coronary artery without angina pectoris (3) Thrombocytopenia: consider HIT vs TTP Status: Acute (4) DM type 1 (diabetes mellitus, type 1): Status: Chronic Qualifiers: Diabetes mellitus complication status: without complication Qualified Code(s): E10.9 - Type 1 diabetes mellitus without complications (5) Obesity: Status: Chronic (6) Dyslipidemia: Status: Chronic Consult Attestations Time Spent in Patient Care: 16 - 35 minutes (>than 50% of time spent in counselling and/or direct pt care on unit) . 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 transplanted heart: [place] heart Thrombocytopenia D69.6 DM type 1 (diabetes mellitus, type 1) E10.9 Diabetes mellitus complication status: without complication Obesity E66.9 Dyslipidemia E78.5
[2020-09-16 20:32] LABS: Erythrocyte Sedimentation Rate 35 mm/hr (0-15)
[2020-09-16 20:34] VITALS: BP 132/70; PULSE 103; RESP 26; O2SAT 99
[2020-09-16 20:45] LABS: INR 1.15 (0.8-1.2)
[2020-09-16 20:46] LABS: LAB Peripheral Smear Sent for Review
[2020-09-16 20:46] LABS: Partial Thromboplastin Time 31.6 SECONDS (23.9-36.7)
[2020-09-16 21:55] VITALS: BP 117/72; PULSE 100; RESP 16; TEMP 37.4; O2SAT 95
[2020-09-16 22:32] LABS: Glucose Point of Care 171 mg/dL (70-110)
[2020-09-16] MEDS: ticagrelor 90 mg Tablet PO (22:41)
[2020-09-16 23:24] VITALS: BP 115/63; PULSE 101; RESP 20; TEMP 37.1; O2SAT 94
[2020-09-16 23:57] VITALS: PULSE 102
[2020-09-17] VITALS (8 sets, daily range): BP systolic 107–139; BP diastolic 62–74; PULSE 60–110; RESP 12–17; TEMP 36.4–37.2; O2SAT 94–98
[2020-09-17 01:26] LABS: Eosinophil Urine No Eosinophils Seen; Urine Eosinophil Count 0 (0-0)
[2020-09-17 06:13] LABS: Basophils % 0.2 %; Eosinophils # 0.1 10^3/uL (0.0-0.8); Eosinophils % 0.5 %; Hematocrit 39.6 % (37.0-47.0); Hemoglobin 13.4 g/dL (11.5-15.3); Lymphocytes # 0.9 10^3/uL (0.8-4.8); Lymphocytes % 5.2 %; Mean Corpuscular HGB Conc 33.8 g/dL (30.0-36.0); Mean Corpuscular Hemoglobin 29.6 pg (28.0-34.0); Mean Corpuscular Volume 87.4 fL (81-99); Mean Platelet Volume 11.3 fL (7.4-10.4); Monocytes # 0.2 10^3/uL (0.2-0.9); Neutrophils # 15.69 10^3/uL (1.8-7.7); Nucleated Red Blood Cells % 0 %; Platelet Count 99 10^3/cmm (130-400); Red Blood Count 4.53 10^6/uL (4.1-5.3); Red Cell Distribution Width 12.5 % (12.1-15.1); White Blood Count 17.1 10^3/uL (4.0-10.0)
[2020-09-17 06:15] LABS: Glucose Point of Care 202 mg/dL (70-110)
[2020-09-17 06:36] LABS: Alanine Aminotransferase 15 U/L (0-33); Albumin Level 3.6 g/dL (3.5-5.2); Alkaline Phosphatase 58 IU/L (35-105); Aspartate Amino Transferase 12 U/L (0-32); Blood Urea Nitrogen 16 mg/dL (6-20); Calcium 8.8 mg/dL (8.5-10.5); Carbon Dioxide 26 mmol/L (22-29); Chloride 100 mmol/L (98-107); Globulin 3.3 g/dL (1.3-4.6); Glomerular Filtration Rate 67.7 mL/min (90-130); Glucose 208 mg/dL (65-115); Lactate Dehydrogenase 246 U/L (135-214); Magnesium 1.8 mg/dL (1.7-2.3); Osmolality Calculated 289 mOsm/kg (285-295); Sodium 136 mmol/L (136-145); Total Bilirubin 0.3 mg/dL (0.15-1.2); Total Protein 6.9 g/dL (6.6-8.7)
[2020-09-17] MEDS: sodium chlor 0.9% + KCl 20 mEq 20 MEQ/1,000 ML BAG 75 MEQ IV (07:12)
[2020-09-17] MEDS: perflutren protein-a microsphr 0.22 mg/mL SDV 3 mL IV (09:01)
--- NOTE | 2020-09-17 09:09 | PC.NURSE ---
pt states she has her own insulin pump and glucometer, pt does not want to use our insulin, but does not mind for us to check her blood sugar.
[2020-09-17] MEDS: levothyroxine 150 mcg Tablet PO (09:11)
[2020-09-17] MEDS: famotidine 20 mg Tablet PO (09:11)
[2020-09-17] MEDS: ticagrelor 90 mg Tablet PO ×2 (09:12→20:33)
[2020-09-17] MEDS: duloxetine 60 mg Capsule PO (09:12)
[2020-09-17] MEDS: montelukast sodium 10 mg Tablet PO (09:12)
[2020-09-17] MEDS: metoprolol tartrate 25 mg Tablet PO ×2 (09:17→17:50)
[2020-09-17] MEDS: aspirin 81 mg EC Tablet PO (09:17)
[2020-09-17] MEDS: losartan 50 mg Tablet 100 MG PO (09:17)
[2020-09-17] MEDS: diphenhydrAMINE 50 mg Capsule PO (09:17)
[2020-09-17 11:08] LABS: Glucose Point of Care 234 mg/dL (70-110)
[2020-09-17] MEDS: diphenhydrAMINE 50 mg/mL SDV 1mL 25 MG IVP (14:40)
[2020-09-17 16:54] LABS: Glucose Point of Care 173 mg/dL (70-110)
--- NOTE | 2020-09-17 17:28 | P.PN_ITS ---
Subjective Subjective: Interval history: Patient was seen and examined this morning, she has extensive maculopapular erythematous rash With significant itching, the rash has not progressed since yesterday, though she complains of continued itching, itching is also little better as compared to yesterday.Has no fever, chills, denies any difficulty, swallowing, has no involvement of oral cavity, no other mucosal involvement noted. Platelet count has improved since yesterday. Medications: Reviewed: Yes Vitals/I&O/Wt Last Vital Signs Temp 98.3 F 09/17/20 16:00 Pulse 91 09/17/20 16:00 Resp 17 09/17/20 16:00 BP 107/68 09/17/20 16:00 Pulse Ox 98 09/17/20 16:00 09/17/20 09/17/20 09/17/20 06:59 14:59 22:59 Intake Total 600 / 600 Balance 600 / 600 Weight last 48 hrs Weight 80.739 kg Physical Exam Const: COMMON NORMALS: patient oriented x3 HENMT: COMMON NORMALS: normocephalic and atraumatic HEAD & SCALP: normocephalic and atraumatic Eye: COMMON NORMALS: no scleral icterus GENERAL EYE: appearance normal, both eyes and all related structures Resp: COMMON NORMALS: clear to auscultation bilaterally AUSCULTATION: clear to auscultation bilaterally Cardio: COMMON NORMALS: regular rate, regular rhythm, S1 normal heart sound present, S2 normal heart sound present, No gallops present (Cardio), No murmurs present (Cardio), No rub (Cardio) and Peripheral pulses 2+ throughout RATE: regular rate RHYTHM: regular rhythm HEART SOUNDS: S1 normal heart sound present and S2 normal heart sound present PERIPHERAL PULSES: Peripheral pulses 2+ throughout GI: COMMON NORMALS: Normal to inspection, nondistended, normoactive bowel sounds present, Soft to palpation, non-tender, No hepatosplenomegaly present and no masses AUSCULTATION: Yes normoactive bowel sounds PALPATION: Yes Soft to palpation and Yes No hepatosplenomegaly present RECTAL EXAM: deferred Extremity: COMMON NORMALS: no clubbing, cyanosis or edema and no pedal edema Neuro: COMMON NORMALS: patient oriented x3 Skin: NARRATIVE SKIN EXAM: extensive maculopapular erythematous exanthem from her feet to her head, including her trunk. with minimal palm involvement, sole of feet is currently not involved Data : 09/17/20 06:00 09/17/20 06:00 A&P Assessment and plan (1) Drug-induced skin rash: Drug-induced rash: Patient has history of atopy. 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 Currently the most reasonable culprit looks like to be Plavix, she has been switched to Brilinta, aspirin has been continued. Dermatological emergencies (SJS---->TEN ----->DRESS) is always a consideration in these cases.But fortunately so far Patient has remained stable, her LFT, kidney function test, is normal, there is no mucosal involvement.Urine eosinophil is absent. Drug-induced vasculitis could be a possibility. In the best interest of the patient it will be prudent to get dermatology consult in the morning, and if needed rheumatology consult. Currently patient continues to improve on IV Solu-Medrol: Solu-Medrol dose has been increased to 60 IV every 8, Due to persistent troubling symptoms. Pepcid has been switched to IV. Benadryl dose has been increased. Status: Acute (2) Thrombocytopenia: Likely medication induced: She is on a number of culprit medications: Currently improving. Continue to monitor CBC. Status: Acute (3) CAD (coronary artery disease): History of coronary artery disease with recent stent placement. Initially on aspirin and Plavix. Has been switched to aspirin and Brilinta. Appreciate cardiology input. Status: Chronic Qualifiers: Coronary Disease-Associated Artery/Lesion type: [place] artery [place] vs. transplanted heart: [place] heart Associated angina: without angina Qualified Code(s): I25.10 - Atherosclerotic heart disease of [place] coronary artery without angina pectoris (4) S/P coronary artery stent placement: Status: Acute (5) DM type 1 (diabetes mellitus, type 1): Patient is currently using her insulin pump. So far blood sugar has been in decent control. Status: Chronic Qualifiers: Diabetes mellitus complication status: without complication Qualified Code(s): E10.9 - Type 1 diabetes mellitus without complications (6) Obesity: Status: Chronic (7) Dyslipidemia: Status: Chronic Attestations Medical Necessity Statement*: Patient needs to be in hospital for management of extensive drug rash. Coding Level of Care Code Acute Client Services Vice President for Chg Fwd Diagnoses Drug-induced skin rash L27.0 Thrombocytopenia D69.6 CAD (coronary artery disease) I25.10 Coronary Disease-Associated Artery/Lesion type: [place] artery [place] vs. transplanted heart: [place] heart Associated angina: without angina S/P coronary artery stent placement Z95.5 DM type 1 (diabetes mellitus, type 1) E10.9 Diabetes mellitus complication status: without complication Obesity E66.9 Dyslipidemia E78.5
[2020-09-17] MEDS: famotidine 20 mg/2 mL INJ IVP (18:32)
[2020-09-17] MEDS: zolpidem 5 mg Tablet PO (20:33)
[2020-09-17] MEDS: diphenhydrAMINE 50 mg/mL SDV 1mL IVP (20:34)
--- NOTE | 2020-09-17 20:48 | PM.PN ---
Subjective Subjective: Interval history: She feels better today. 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 minimal involvement of palms. No mucosal involvement. Data : 09/17/20 06:00 09/17/20 06:00 A&P Assessment and plan (1) Drug-induced skin rash: Clopidogrel vs contrast associated (less likely). -DRESS may be a consideration however given normal liver and kidney functions and no systemic involvement, unlikely. -No Urine eposinophil , eosinophil normalized, increased WBC, ANC, decreased lymphocyte. Increased ESR and CRP -started on IV solumedrol. continue benadryl, pepcid. Status: Acute (2) CAD (coronary artery disease): Recent SONIDO to mid LAD -on ASA and Brilinta. will continue for now. - May resume statin once rash clears. -Normal echo. Status: Chronic Qualifiers: Coronary Disease-Associated Artery/Lesion type: [place] artery [place] vs. transplanted heart: [place] heart Associated angina: without angina Qualified Code(s): I25.10 - Atherosclerotic heart disease of [place] coronary artery without angina pectoris (3) Thrombocytopenia: improved from 90-->99. Status: Acute (4) DM type 1 (diabetes mellitus, type 1): Status: Chronic Qualifiers: Diabetes mellitus complication status: without complication Qualified Code(s): E10.9 - Type 1 diabetes mellitus without complications (5) Obesity: Status: Chronic (6) Dyslipidemia: Status: Chronic Additional A&P Information HTN: continue current medications Attestations Medical Necessity Statement*: Needs hopsital stay for extensive rash. Time Spent in Patient Care: 16 - 35 minutes (>than 50% of time spent in counselling and/or direct pt care on unit). Coding Level of Care Code Acute [employer] Leader for g Fwd Diagnoses Drug-induced skin rash L27.0 CAD (coronary artery disease) I25.10 Coronary Disease-Associated Artery/Lesion type: [place] artery [place] vs. transplanted heart: [place] heart Associated angina: without angina Thrombocytopenia D69.6 DM type 1 (diabetes mellitus, type 1) E10.9 Diabetes mellitus complication status: without complication Obesity E66.9 Dyslipidemia E78.5
[2020-09-17 20:52] LABS: Glucose Point of Care 294 mg/dL (70-110)
--- NOTE | 2020-09-17 21:04 | USCV_ITS ---
Viji Hopkinsrina Age: 45 Gender: F : 1975 Exam Date: 09/17/2020 07:20 Ordering Phys: Maru Ferguson MD ([email or web address]) Technologist: [place] Exam Location: [facility] [place] Indication: CAD, Tachycardia BP: 139 / 73 HR: 98 Rhythm: Sinus Technical Quality: Fair MEASUREMENTS (Male / Female) Normal Values 2D ECHO LV Diastolic Diameter PLAX 3.6 cm 4.2 - 5.9 / 3.9 - 5.3 cm LV Systolic Diameter PLAX 2.3 cm LV Chamber Size 3.8 cm IVS Diastolic Thickness 1.1 cm 0.6 - 1.0 / 0.6 - 0.9 cm IVS Systolic Thickness 1.9 cm LVPW Diastolic Thickness 0.8 cm 0.6 - 1.0 / 0.6 - 0.9 cm LVPW Systolic Thickness 1.1 cm RV Chamber Size 1.5 cm LVOT Diameter 1.8 cm LV Ejection Fraction 2D Teich 68.2 % LV Ejection Fraction MOD 2C 45.4 % LV Ejection Fraction 2C AL 44.5 % LA Diameter 2.5 cm LA Width 2.0 cm LA Height 4.2 cm RA Width 1.6 cm RA Height 2.8 cm Aorta at Sinotubular Diameter 1.9 cm M-MODE LV Diastolic Diameter MM 4.3 cm 4.2 - 5.9 / 3.9 - 5.3 cm LV Systolic Diameter MM 2.7 cm LV Ejection Fraction MM Teich 66.6 % IVS Diastolic Thickness MM 1.2 cm 0.6 - 1.0 / 0.6 - 0.9 cm IVS Systolic Thickness MM 1.5 cm LVPW Diastolic Thickness MM 1.1 cm 0.6 - 1.0 / 0.6 - 0.9 cm LVPW Systolic Thickness MM 1.5 cm Aortic Annulus Diameter 2.4 cm LA Ao Ratio MM 1.2 MV E Point Septal Separation 0.5 cm DOPPLER AV Peak Velocity 118.0 cm/s LVOT Peak Velocity 96.0 cm/s AV Area Cont Eq vti 2.0 cm squared AV Area Cont Eq pk 2.0 cm squared MV Area PHT 5.4 cm squared Mitral E to A Ratio 0.8 MV E' Velocity 41.0 cm/s Mitral E to MV E' Ratio 9.3 Mitral E to LV E' Lateral Ratio 8.9 Mitral E to LV E' Septal Ratio 9.7 TV Peak E Velocity 43.0 cm/s Right Atrial Pressure 3.0 mmHg PV Peak Velocity 67.0 cm/s RV Acceleration Time 0.1 s RV Ejection Time 0.3 s RV AcT/ET 0.3 FINDINGS Left Ventricle Normal left ventricular size, systolic function and wall thickness, with no regional wall motion abnormalities. Left ventricular ejection fraction is estimated at 65 %. Normal diastolic function. Right Ventricle Normal right ventricular size and systolic function. Right Atrium Normal right atrial size. Right atrial pressure estimated at 3 mm Hg. Left Atrium Left atrium not well visualized. Normal left atrial size. Mitral Valve Structurally normal mitral valve. No mitral valve stenosis. Trace mitral valve regurgitation. Aortic Valve Aortic valve not well visualized. No aortic valve stenosis. No aortic valve regurgitation. Tricuspid Valve Structurally normal tricuspid valve. No tricuspid valve stenosis. Trace tricuspid valve regurgitation. Pulmonic Valve Pulmonic valve not well visualized. No pulmonary valve stenosis. Trace pulmonary valve regurgitation. Pericardium No pericardial effusion. Aorta Normal sized aortic root. Normal sized inferior vena cava with normal respiratory variations. CONCLUSIONS 1. This is technically difficult study. Optison was used per protocol. 2. Normal left ventricular size, systolic function and wall thickness, with no regional wall motion abnormalities. Left ventricular ejection fraction is estimated at 65 %. Normal diastolic function. 3. No significant valvular abnormality. 4. No pericardial effusion. 5. No prior similar studies to compare. Maru Ferguson MD (Electronically Signed) Final Date: 17 September 2020 13:40 S
[2020-09-18] VITALS (7 sets, daily range): BP systolic 122–135; BP diastolic 69–79; PULSE 79–84; RESP 17–19; TEMP 36.6–37.3; O2SAT 93–97
[2020-09-18] MEDS: famotidine 20 mg/2 mL INJ IVP ×2 (04:50→17:19)
[2020-09-18 06:51] LABS: Glucose Point of Care 115 mg/dL (70-110)
[2020-09-18 07:01] LABS: Basophils # 0.1 10^3/uL (0.0-0.1); Basophils % 0.2 %; Eosinophils % 0.1 %; Hemoglobin 12.2 g/dL (11.5-15.3); Lymphocytes # 1.9 10^3/uL (0.8-4.8); Lymphocytes % 7.8 %; Mean Corpuscular Hemoglobin 29.8 pg (28.0-34.0); Mean Corpuscular Volume 90.2 fL (81-99); Mean Platelet Volume 11.4 fL (7.4-10.4); Monocytes # 0.7 10^3/uL (0.2-0.9); Neutrophils # 21.52 10^3/uL (1.8-7.7); Neutrophils % 87.8 %; Nucleated Red Blood Cells % 0 %; Platelet Count 149 10^3/cmm (130-400); Red Cell Distribution Width 12.9 % (12.1-15.1); White Blood Count 24.5 10^3/uL (4.0-10.0)
[2020-09-18 07:10] LABS: Alanine Aminotransferase 13 U/L (0-33); Albumin Level 3.5 g/dL (3.5-5.2); Alkaline Phosphatase 58 IU/L (35-105); Aspartate Amino Transferase 10 U/L (0-32); Blood Urea Nitrogen 19 mg/dL (6-20); Calcium 8.5 mg/dL (8.5-10.5); Carbon Dioxide 22 mmol/L (22-29); Chloride 105 mmol/L (98-107); Globulin 2.7 g/dL (1.3-4.6); Glomerular Filtration Rate 90.5 mL/min (90-130); Glucose 120 mg/dL (65-115); Osmolality Calculated 287 mOsm/kg (285-295); Sodium 137 mmol/L (136-145); Total Bilirubin 0.2 mg/dL (0.15-1.2); Total Protein 6.2 g/dL (6.6-8.7)
[2020-09-18 07:40] LABS: Slide Review Slide Review Perform
[2020-09-18] MEDS: ticagrelor 90 mg Tablet PO ×2 (07:58→21:13)
[2020-09-18] MEDS: diphenhydrAMINE 50 mg/mL SDV 1mL IVP (07:58)
[2020-09-18] MEDS: aspirin 81 mg EC Tablet PO (07:58)
[2020-09-18] MEDS: losartan 50 mg Tablet 100 MG PO (07:58)
[2020-09-18] MEDS: metoprolol tartrate 25 mg Tablet PO ×2 (07:59→17:19)
[2020-09-18] MEDS: levothyroxine 150 mcg Tablet PO (07:59)
[2020-09-18] MEDS: duloxetine 60 mg Capsule PO (07:59)
[2020-09-18] MEDS: montelukast sodium 10 mg Tablet PO (07:59)
[2020-09-18 11:21] LABS: Glucose Point of Care 239 mg/dL (70-110)
[2020-09-18 11:33] LABS: Lyme AB Screen <0.90 index
--- NOTE | 2020-09-18 15:56 | P.PN_ITS ---
Subjective Subjective: Interval history: Hospital course, labs noted. Patient sitting in chair with family. Seems jovial. States she is feeling better. Does have a rash all over the body. States itching is better. Denies any tenderness. Medications: Reviewed: Yes Medication Review Details: I personally reviewed home medication list and medications received day of admission thus far. Vitals/I&O/Wt Last Vital Signs Temp 98.4 F 09/18/20 15:43 Pulse 83 09/18/20 15:43 Resp 18 09/18/20 15:43 BP 122/70 09/18/20 15:43 Pulse Ox 94 09/18/20 15:43 09/18/20 09/18/20 09/18/20 06:59 14:59 22:59 Intake Total 1000 / 1000 Balance 1000 / 1000 Weight last 48 hrs Weight 80.739 kg Physical Exam Narrative: EXAM NARRATIVE: Constitutional: Awake and alert, looks uncomfortable, cooperative, able to provide history HEENT: Normocephalic, atraumatic, extraocular movements are intact, no visible sores in nasopharynx, no tongue tesions, no mucosal sores in the mouth, no pharyngeal petechiae noted, moist mucous membranes, no lesions noted to the lips. She does have a few patches of erythema on her scalp but not near to the extent seen elsewhere. Neck: Supple Respiratory: Clear to auscultation bilaterally Cardiovascular: Tachycardic, no murmurs or rubs, right groin site is intact to the point that with rash I am not even able to see exactly where the skin puncture was, 2+ pulses Abdomen: Soft, nontender, nondistended, positive bowel sounds : Visual inspection of the vulva, urethra and introitus show moist pink mucosal surfaces without any ulcerations or other lesions noted Extremities: No pitting edema, no palpable joint effusions, insulin delivery system in place Skin: Patient has extensive maculopapular erythematous exanthem from her feet to her head, including her trunk. It spares the palms and soles. All in tertriginous areas are a very confluent bright red erythema. On the distal lower extremities from the knee down there is a general erythema with raised raised papules with almost purpuric appearing centers. Her skin is warm to touch everywhere that it is red but it is not particularly tender to touch. There is some mild desquamation in the upper thighs medially where her legs rub together. There are no pustules or blisters noted. Psych: Normal affect Data : 09/18/20 06:04 09/18/20 06:04 Micro: Microbiology 09/16/20 18:51 Urine Culture - Preliminary Urine,Clean Catch A&P Assessment and plan (1) Drug-induced skin rash: Drug-induced rash: Patient has history of atopy. 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 Currently the most reasonable culprit looks like to be Plavix. She has been switched to Brilinta, aspirin has been continued. Dermatological emergencies (SJS---->TEN ----->DRESS) is always a consideration in these cases.But fortunately so far Patient has remained stable, her LFT, kidney function test, is normal, there is no mucosal involvement.Urine eosinophil is absent. Drug-induced vasculitis could be a possibility. We will discussed the case with dermatology team and will most likely place a consult as well. Will discuss with the patient needs to be seen inpatient versus outpatient. Decrease Solu-Medrol to 60 mg twice daily. Change Benadryl to 25 mg p.o. every 6 hours as needed. JAY, tick panel awaited. Status: Acute (2) Thrombocytopenia: Resolving. Continue to monitor CBC. Status: Acute (3) CAD (coronary artery disease): History of coronary artery disease with recent stent placement. No active chest pain. Continue with aspirin, new Brilinta. Start patient on statin Status: Chronic Qualifiers: Coronary Disease-Associated Artery/Lesion type: [place] artery [place] vs. transplanted heart: [place] heart Associated angina: without angina Qualified Code(s): I25.10 - Atherosclerotic heart disease of [place] coronary artery without angina pectoris (4) S/P coronary artery stent placement: Status: Acute (5) DM type 1 (diabetes mellitus, type 1): Patient is currently using her insulin pump. So far blood sugar has been in decent control. Status: Chronic Qualifiers: Diabetes mellitus complication status: without complication Qualified Code(s): E10.9 - Type 1 diabetes mellitus without complications (6) Obesity: Status: Chronic (7) Dyslipidemia: Status: Chronic Additional A&P Information Full code. Carb consistent cardiac diet. Famotidine for PUD prophylaxis. Low probability of VTE as patient is fairly ambulatory. Ambulation, SCDs. Attestations Medical Necessity Statement*: Patient requires further hospitalization for management of drug-induced skin rash while dose of IV steroids is gradually weaned Time Spent in Patient Care: Greater than 35 minutes (>than 50% of time spent in counselling and/or direct pt care on unit) . Coding Level of Care Code Acute Hat Sprayer for Chg Fwd Diagnoses Drug-induced skin rash L27.0 Thrombocytopenia D69.6 CAD (coronary artery disease) I25.10 Coronary Disease-Associated Artery/Lesion type: [place] artery [place] vs. transplanted heart: [place] heart Associated angina: without angina S/P coronary artery stent placement Z95.5 DM type 1 (diabetes mellitus, type 1) E10.9 Diabetes mellitus complication status: without complication Obesity E66.9 Dyslipidemia E78.5
[2020-09-18 17:22] LABS: Glucose Point of Care 226 mg/dL (70-110)
--- NOTE | 2020-09-18 19:22 | PM.PN ---
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 minimal involvement of palms. No mucosal involvement. Coalescing rash noted in legs Data : 09/18/20 06:04 09/18/20 06:04 Micro: Microbiology 09/16/20 18:51 Urine Culture - Preliminary Urine,Clean Catch A&P Assessment and plan (1) Drug-induced skin rash: Clopidogrel being most likely culprit. -Patient has history of atopy. She also has a history of red man syndrome in the past due to vancomycin. - she has been switched to Brilinta, aspirin has been continued. -Dermatological emergencies (SJS---->TEN ----->DRESS) is always a consideration in these cases. So far patient has remained stable. LFT, kidney function test is normal. there is no mucosal involvement.Urine eosinophil is absent. Drug-induced vasculitis could be a possibility. -Decreased erythema and improved appearance. No extension of rash. -solumedrol dose decreased. continue pepcid. Benadryl changed to PRN. -Possible discharge tomorrow. -f/u in [facility] in 1 week. Status: Acute (2) CAD (coronary artery disease): Recent SONIDO to mid LAD -on ASA and Brilinta. -Normal echo. -will set her up for staged PCI to RCA in 3-4 weeks Status: Chronic Qualifiers: Coronary Disease-Associated Artery/Lesion type: [place] artery [place] vs. transplanted heart: [place] heart Associated angina: without angina Qualified Code(s): I25.10 - Atherosclerotic heart disease of [place] coronary artery without angina pectoris (3) Thrombocytopenia: improved from 90-->99--149. Status: Acute (4) DM type 1 (diabetes mellitus, type 1): Status: Chronic Qualifiers: Diabetes mellitus complication status: without complication Qualified Code(s): E10.9 - Type 1 diabetes mellitus without complications (5) Obesity: Status: Chronic (6) Dyslipidemia: Status: Chronic Additional A&P Information HTN: continue current medications Attestations Medical Necessity Statement*: Needs hopsital stay for extensive rash and IV steroids. Time Spent in Patient Care: 16 - 35 minutes (>than 50% of time spent in counselling and/or direct pt care on unit). Coding Level of Care Code Acute Office Rn for g Fwd Diagnoses Drug-induced skin rash L27.0 CAD (coronary artery disease) I25.10 Coronary Disease-Associated Artery/Lesion type: [place] artery [place] vs. transplanted heart: [place] heart Associated angina: without angina Thrombocytopenia D69.6 DM type 1 (diabetes mellitus, type 1) E10.9 Diabetes mellitus complication status: without complication Obesity E66.9 Dyslipidemia E78.5
[2020-09-18] MEDS: atorvastatin 40 mg Tablet PO (20:33)
[2020-09-18 20:43] LABS: Glucose Point of Care 268 mg/dL (70-110)
[2020-09-18] MEDS: diphenhydrAMINE 25 mg Capsule PO (21:13)
[2020-09-19] VITALS: BP 128/74; PULSE 80; RESP 20; TEMP 36.8; O2SAT 95
[2020-09-19 04:00] VITALS: BP 131/75; PULSE 73; RESP 18; TEMP 36.9; O2SAT 94
[2020-09-19] MEDS: famotidine 20 mg/2 mL INJ IVP (05:19)
[2020-09-19 05:36] LABS: Basophils # 0.1 10^3/uL (0.0-0.1); Basophils % 0.5 %; Eosinophils % 0.2 %; Hematocrit 39.1 % (37.0-47.0); Hemoglobin 12.7 g/dL (11.5-15.3); Lymphocytes # 4.1 10^3/uL (0.8-4.8); Lymphocytes % 15.3 %; Mean Corpuscular HGB Conc 32.5 g/dL (30.0-36.0); Mean Corpuscular Hemoglobin 29.5 pg (28.0-34.0); Mean Corpuscular Volume 90.7 fL (81-99); Mean Platelet Volume 11.4 fL (7.4-10.4); Monocytes # 2.1 10^3/uL (0.2-0.9); Neutrophils # 19.54 10^3/uL (1.8-7.7); Neutrophils % 73.4 %; Nucleated Red Blood Cells % 0 %; Platelet Count 211 10^3/cmm (130-400); Red Blood Count 4.31 10^6/uL (4.1-5.3); Red Cell Distribution Width 12.9 % (12.1-15.1); White Blood Count 26.6 10^3/uL (4.0-10.0)
[2020-09-19 05:54] LABS: Slide Review Slide Review Perform
[2020-09-19 05:56] LABS: Alanine Aminotransferase 15 U/L (0-33); Albumin Level 3.4 g/dL (3.5-5.2); Alkaline Phosphatase 57 IU/L (35-105); Aspartate Amino Transferase 12 U/L (0-32); Blood Urea Nitrogen 21 mg/dL (6-20); Calcium 8.3 mg/dL (8.5-10.5); Carbon Dioxide 25 mmol/L (22-29); Chloride 104 mmol/L (98-107); Globulin 2.9 g/dL (1.3-4.6); Glomerular Filtration Rate 90.5 mL/min (90-130); Glucose 64 mg/dL (65-115); Osmolality Calculated 285 mOsm/kg (285-295); Sodium 137 mmol/L (136-145); Total Bilirubin 0.2 mg/dL (0.15-1.2); Total Protein 6.3 g/dL (6.6-8.7)
[2020-09-19 06:07] LABS: Glucose Point of Care 65 mg/dL (70-110)
[2020-09-19 07:24] VITALS: BP 126/68; PULSE 81; RESP 16; TEMP 36.4; O2SAT 97
[2020-09-19] MEDS: diphenhydrAMINE 25 mg Capsule PO (08:57)
[2020-09-19 08:58] VITALS: BP 126/68
[2020-09-19] MEDS: duloxetine 60 mg Capsule PO (08:58)
[2020-09-19] MEDS: aspirin 81 mg EC Tablet PO (08:58)
[2020-09-19] MEDS: montelukast sodium 10 mg Tablet PO (08:58)
[2020-09-19] MEDS: losartan 50 mg Tablet 100 MG PO (08:58)
[2020-09-19] MEDS: metoprolol tartrate 25 mg Tablet PO (08:59)
[2020-09-19] MEDS: levothyroxine 150 mcg Tablet PO (08:59)
[2020-09-19] MEDS: ticagrelor 90 mg Tablet PO (09:04)
--- NOTE | 2020-09-19 11:05 | PM.DCS ---
Discharge Providers Date of Admission: 09/16/20 19:38 Date of Discharge: September 19, 2020 Attending Provider at Admission: Ade Arredondo MD Attending Provider at Discharge: Marco Antonio Valdez MD Consults: Cardiology: Dr. Ferguson Primary Care Provider: Magdi Ricks MD Diagnoses at Discharge Discharge Diagnosis (1) Drug-induced skin rash: Status: Acute (2) CAD (coronary artery disease): Status: Chronic Qualifiers: Coronary Disease-Associated Artery/Lesion type: [place] artery [place] vs. transplanted heart: [place] heart Associated angina: without angina Qualified Code(s): I25.10 - Atherosclerotic heart disease of [place] coronary artery without angina pectoris (3) Thrombocytopenia: Status: Acute (4) DM type 1 (diabetes mellitus, type 1): Status: Chronic Qualifiers: Diabetes mellitus complication status: without complication Qualified Code(s): E10.9 - Type 1 diabetes mellitus without complications (5) Obesity: Status: Chronic (6) Dyslipidemia: Status: Chronic Reason for Visit Reason for Visit: Rash; High BS; subjective fever; Phyllis sent over Hospital Course Hospital Course Melina Hopkins is a 45 year old female with type 1 diabetes mellitus who presented to the emergency room with progressively worsening rash all over and subjective fevers. She had had a positive stress test last week. She underwent cardiac catheterization with stent placement on September 11. She was prescribed Plavix post procedure. Within 2 hours of taking the dose on September 12, she developed a rash that began on her lower extremities and extended upward. Rash was pruritic in nature, erythematous and urticarial. Dr. Ferguson changed her from Plavix to Brilinta and gave her some oral steroids. Despite this the rash has worsened and now extends from her feet to her face. It involves intertriginous areas. She has had extensive itching not well relieved with Benadryl. She has had some subjective fevers and her skin has felt hot all over. In her upper thighs she has had some mild desquamation. Her skin was tender when it was touched for IV placement but she does not complain of skin pain. She has not had any mucosal sores in her nose, oropharynx or genital region. She denies any grittiness or pain in her eyes. No photophobia. She does have some itching on her scalp. She has not had any bleeding anywhere. She has had generalized aches and pains and fatigue/malaise. Stools were looser than normal today but no diarrhea. No nausea or vomiting. No trouble swallowing. She has not had further chest pain. She does still have some mild dyspnea on exertion. Work up in the emergency room showed a white count of 20,000 with increased neutrophils and decreased absolute lymphocytes. Eosinophils were just above normal range. Platelet count was noted to be low at 90 however hemoglobin was normal. LFTs were normal. She has pulled one tick off of her within the last month or 2. No other new medications introduced this week although she was started on metoprolol and atorvastatin at the end of August. No other known exposures. Given the progressive skin findings despite outpatient management combined with laboratory abnormalities she is being admitted for further evaluation and treatment. Patient to the hospital for further work-up and management of diffuse maculopapular rash. Dermatological emergencies including dress syndrome, Holbrook-Paulino, was ruled out by no mucosal involvement, negative urine eosinophils and normal kidney liver functions. Patient responded well to the steroid therapy and her symptoms resolved though she continued to have the rash. Gradually patient's blood work including thrombocytopenia, eosinophilia resolved. She continued to have leukocytosis which is thought most likely secondary to high steroid use. Patient did not have any hemodynamic instability or fevers during hospitalization. She remained afebrile off antibiotics. Tick panel and JAY profile is still pending. Patient's case was discussed with outpatient horticultural specialty grower inside who advised the patient to be discharged on slow steroid taper with advised to follow-up as an outpatient for possible skin biopsy. Patient is been discharged hemodynamically stable condition on oral Brilinta with advised to follow-up with dermatology office and to avoid being in sun for longer. Of time till the time she follows up with dermatology. Physical Exam Narrative: EXAM NARRATIVE: Constitutional: Awake and alert, looks uncomfortable, cooperative, able to provide history HEENT: Normocephalic, atraumatic, extraocular movements are intact, no visible sores in nasopharynx, no tongue tesions, no mucosal sores in the mouth, no pharyngeal petechiae noted, moist mucous membranes, no lesions noted to the lips. She does have a few patches of erythema on her scalp but not near to the extent seen elsewhere. Neck: Supple Respiratory: Clear to auscultation bilaterally Cardiovascular: Tachycardic, no murmurs or rubs, right groin site is intact to the point that with rash I am not even able to see exactly where the skin puncture was, 2+ pulses Abdomen: Soft, nontender, nondistended, positive bowel sounds : Visual inspection of the vulva, urethra and introitus show moist pink mucosal surfaces without any ulcerations or other lesions noted Extremities: No pitting edema, no palpable joint effusions, insulin delivery system in place Skin: Patient has extensive maculopapular erythematous exanthem from her feet to her head, including her trunk. It spares the palms and soles. All intertriginous areas are a very confluent bright red erythema. On the distal lower extremities from the knee down there is a general erythema with raised raised papules with almost purpuric appearing centers. Her skin is warm to touch everywhere that it is red but it is not particularly tender to touch. There is some mild desquamation in the upper thighs medially where her legs rub together. There are no pustules or blisters noted. Psych: Normal affect Discharge Data Data Completed and Pending: Completed Studies During Hospitalization Category Date Time Status XR chest 1V huong ble [id number] Stat Exams 09/16/20 18:51 Completed CV echo wo/w cont rast [id number] Routine Ultrasound 09/17/20 21:04 Completed US/CV paperwork R outine Ultrasound 09/17/20 Completed Pending at discharge Category Date Time Status JAY Screen w/ Ref tate Routine Lab 09/18/20 06:04 Received Complete Blood Co unt w/Auto AM LABS Lab 09/20/20 04:00 Ordered Comprehensive Met abolic Panel AM LA BS Lab 09/20/20 04:00 Ordered Tick Panel Routin e Lab 09/17/20 06:00 Results Labs from last 24 hours 09/19/20 09/19/20 09/19/20 06:04 05:07 05:07 WBC 26.6 H RBC 4.31 Hgb 12.7 Hct 39.1 MCV 90.7 MCH 29.5 MCHC 32.5 RDW 12.9 Plt Count 211 MPV 11.4 H Neut % (Auto) 73.4 Lymph % (Auto) 15.3 Dickinson % (Auto) 8.0 Eos % (Auto) 0.2 Baso % (Auto) 0.5 Neut # (Auto) 19.54 H Lymph # (Auto) 4.1 Dickinson # (Auto) 2.1 H Eos # (Auto) 0.0 Baso # (Auto) 0.1 Nucleated RBC % (a uto) 0 Nucleated RBCs # 0.0 Sodium 137 Potassium 4.0 Chloride 104 Carbon Dioxide 25 Anion Gap 12.0 BUN 21 H Creatinine 0.7 GFR Calculation 90.5 Glucose 64 L POC Glucose 65 L Calculated Osmolal ity 285 Calcium 8.3 L Total Bilirubin 0.2 AST 12 ALT 15 Alkaline Phosphata se 57 Total Protein 6.3 L Albumin 3.4 L Globulin 2.9 Lyme Ab (Western B lot) 09/18/20 09/18/20 09/18/20 20:39 17:16 10:48 WBC RBC Hgb Hct MCV MCH MCHC RDW Plt Count MPV Neut % (Auto) Lymph % (Auto) Dickinson % (Auto) Eos % (Auto) Baso % (Auto) Neut # (Auto) Lymph # (Auto) Dickinson # (Auto) Eos # (Auto) Baso # (Auto) Nucleated RBC % (a uto) Nucleated RBCs # Sodium Potassium Chloride Carbon Dioxide Anion Gap BUN Creatinine GFR Calculation Glucose POC Glucose 268 H 226 H 239 H Calculated Osmolal ity Calcium Total Bilirubin AST ALT Alkaline Phosphata se Total Protein Albumin Globulin Lyme Ab (Skype B lot) 09/17/20 06:00 WBC RBC Hgb Hct MCV MCH MCHC RDW Plt Count MPV Neut % (Auto) Lymph % (Auto) Dickinson % (Auto) Eos % (Auto) Baso % (Auto) Neut # (Auto) Lymph # (Auto) Dickinson # (Auto) Eos # (Auto) Baso # (Auto) Nucleated RBC % (a uto) Nucleated RBCs # Sodium Potassium Chloride Carbon Dioxide Anion Gap BUN Creatinine GFR Calculation Glucose POC Glucose Calculated Osmolal ity Calcium Total Bilirubin AST ALT Alkaline Phosphata se Total Protein Albumin Globulin Lyme Ab (Western B lot) <0.90 Addt'l Data from Hospital Stay: Laboratory Results WBC 26.6 10^3/uL (4.0 -10.0) H 09/19/20 05:07 RBC 4.31 10^6/uL (4.1 -5.3) 09/19/20 05:07 Hgb 12.7 g/dL (11.5-1 5.3) 09/19/20 05:07 Hct 39.1 % (37.0-47.0 ) 09/19/20 05:07 MCV 90.7 fL (81-99) 09/19/20 05:07 MCH 29.5 pg (28.0-34. 0) 09/19/20 05:07 MCHC 32.5 g/dL (30.0-3 6.0) 09/19/20 05:07 RDW 12.9 % (12.1-15.1 ) 09/19/20 05:07 Plt Count 211 10^3/cmm (130 -400) 09/19/20 05:07 MPV 11.4 fL (7.4-10.4 ) H 09/19/20 05:07 Neut % (Auto) 73.4 % 09/19/20 05:07 Lymph % (Auto) 15.3 % 09/19/20 05:07 Dickinson % (Auto) 8.0 % 09/19/20 05:07 Eos % (Auto) 0.2 % 09/19/20 05:07 Baso % (Auto) 0.5 % 09/19/20 05:07 Neut # (Auto) 19.54 10^3/uL (1. 8-7.7) H 09/19/20 05:07 Lymph # (Auto) 4.1 10^3/uL (0.8- 4.8) 09/19/20 05:07 Dickinson # (Auto) 2.1 10^3/uL (0.2- 0.9) H 09/19/20 05:07 Eos # (Auto) 0.0 10^3/uL (0.0- 0.8) 09/19/20 05:07 Baso # (Auto) 0.1 10^3/uL (0.0- 0.1) 09/19/20 05:07 Nucleated RBC % (a uto) 0 % 09/19/20 05:07 Nucleated RBCs # 0.0 /100WBC 09/19/20 05:07 ESR 35 mm/hr (0-15) H 09/16/20 18:20 PT 15.00 SECONDS (12 .1-14.9) H 09/16/20 20:28 INR 1.15 (0.8-1.2) 09/16/20 20:28 APTT 31.6 SECONDS (23. 9-36.7) 09/16/20 20:28 Sodium 137 mmol/L (136-1 45) 09/19/20 05:07 Potassium 4.0 mmol/L (3.5-5 .1) 09/19/20 05:07 Chloride 104 mmol/L (98-10 7) 09/19/20 05:07 Carbon Dioxide 25 mmol/L (22-29) 09/19/20 05:07 Anion Gap 12.0 (5-19) 09/19/20 05:07 BUN 21 mg/dL (6-20) H 09/19/20 05:07 Creatinine 0.7 mg/dL (0.5-0. 9) 09/19/20 05:07 GFR Calculation 90.5 mL/min (90-1 30) 09/19/20 05:07 Glucose 64 mg/dL (65-115) L 09/19/20 05:07 POC Glucose 361 mg/dL (70-110 ) H 09/19/20 10:46 Calculated Osmolal ity 285 mOsm/kg (285- 295) 09/19/20 05:07 Calcium 8.3 mg/dL (8.5-10 .5) L 09/19/20 05:07 Magnesium 1.8 mg/dL (1.7-2. 3) 09/17/20 06:00 Total Bilirubin 0.2 mg/dL (0.15-1 .2) 09/19/20 05:07 AST 12 U/L (0-32) 09/19/20 05:07 ALT 15 U/L (0-33) 09/19/20 05:07 Alkaline Phosphata se 57 IU/L (35-105) 09/19/20 05:07 Lactate Dehydrogen ase 246 U/L (135-214) H 09/17/20 06:00 Creatine Kinase 19 U/L (26-192) L 09/16/20 18:20 C-Reactive Protein 101.0 mg/L (0.0-4 .9) H 09/17/20 06:00 Total Protein 6.3 g/dL (6.6-8.7 ) L 09/19/20 05:07 Albumin 3.4 g/dL (3.5-5.2 ) L 09/19/20 05:07 Globulin 2.9 g/dL (1.3-4.6 ) 09/19/20 05:07 Urine Color Yellow (Yellow) 09/16/20 18:51 Urine Appearance Sl hazy (CLEAR) 09/16/20 18:51 Urine pH 5 (5-7) 09/16/20 18:51 Ur Specific Gravit y 1.015 (1.005-1.0 30) 09/16/20 18:51 Urine Protein 1+ (Negative) H 09/16/20 18:51 Urine Glucose (UA) 4+ (Normal) H 09/16/20 18:51 Urine Ketones Negative (Negati ve) 09/16/20 18:51 Urine Blood Neg (Negative) 09/16/20 18:51 Urine Nitrate Negative (Negati ve) 09/16/20 18:51 Urine Bilirubin Neg (Negative) 09/16/20 18:51 Urine Urobilinogen Norm mg/dL (Negat jona) 09/16/20 18:51 Ur Leukocyte Holly ase Negative (Negati ve) 09/16/20 18:51 Urine RBC None /hpf (0-2) 09/16/20 18:51 Urine WBC Rare /hpf (0-5) 09/16/20 18:51 Ur Eosinophil Smea r 0 (0-0) 09/17/20 00:17 Ur Squamous Epith Cells 5-10 /hpf (0-5) H 09/16/20 18:51 Amorphous Sediment Not Reportable 09/16/20 18:51 Urine Bacteria 2+ /hpf (NONE) H 09/16/20 18:51 Urine Yeast 1+ /hpf H 09/16/20 18:51 Urine Eosinophils No eosinophils se en 09/17/20 00:17 Lyme Ab (Western B lot) <0.90 index 09/17/20 06:00 Impressions Chest X-Ray 09/16/20 18:51 IMPRESSION: No acute infiltrates. Vitals: Last Vital Signs Temp 97.6 F 09/19/20 07:24 Pulse 81 09/19/20 07:24 Resp 16 09/19/20 07:24 BP 126/68 09/19/20 08:58 Pulse Ox 97 09/19/20 07:24 Discharge Plan Discharge Patient Disposition: Home Condition: Stable Prescriptions: New famotidine 20 mg tablet 20 mg PO DAILY Qty: 20 RF: 0 dexamethasone 6 mg tablet 6 mg PO Q8H Qty: 90 RF: 0 Continued Brilinta 90 mg tablet 90 mg PO BID Qty: 60 RF: 0 losartan 100 mg Tablet 100 mg PO DAILY RF: 0 levothyroxine 150 mcg Tablet 150 mcg PO DAILY RF: 0 montelukast 10 mg Tablet 10 mg PO DAILY RF: 0 duloxetine 60 mg Capsule, Delayed Rel Sprinkle 60 mg PO DAILY RF: 0 metoprolol tartrate 25 mg tablet 25 mg PO BID RF: 0 red yeast rice 600 mg Capsule 1,200 mg PO DAILY RF: 0 aspirin 81 mg Tablet,Delayed Release (Dr/Ec) 81 mg PO DAILY Qty: 90 RF: 3 atorvastatin 20 mg tablet 40 mg PO BEDTIME Qty: 0 RF: 0 Humalog KwikPen Insulin 100 unit/mL insulin pen See Rx Instructions .ROUTE .COMPLEX RF: 0 [place] 3 Fish Oil 1,000 mg PO DAILY RF: 0 (DME) Omnipod Insulin Management RF: 0 insulin lispro See Rx Instructions .ROUTE .COMPLEX RF: 0 Benadryl 50 mg Capsule 50 mg PO TID RF: 0 famotidine 20 mg Tablet 20 mg PO BID RF: 0 Discontinued prednisone 10 mg tablet 10 mg PO BID Qty: 14 RF: 0 spironolacton-hydrochlorothiaz 25-25 mg Tablet 1 tab PO DAILY RF: 0 Discharge Orders: Discharge Order (Routine); Ordered 09/19/20 Ordered By: Marco Antonio Valdez Referrals: Nivia Stevens DO [Physician] - 1-3 days (Diffuse maculopapular rash, most likely drug-induced rash.) Discharge Diet: Cardiac and Diabetic Discharge Activity: Resume usual activity Patient Instructions: Opioid Safety Activity Restrictions/Additional Instructions: Please follow-up with dermatology office as directed. You will be on dexamethasone 6 mg tablets. He is supposed to be on slow taper. For now take 6 mg tablets 3 times a day for 5 days followed by 6 mg 1 tablet twice a day for 5 days, followed by 6 mg once daily for 5 days followed by 3 mg once daily for 5 days. Till the time you see dermatology office please try to avoid exposure to sun for a long time. Make sure your skin is properly covered when you out in sun. Discharge Attestations Time Spent in Discharge Care*: greater than 30 min Specific Discharge Activities: educating patient, discussing with pcp/other providers, discussing with rn case manager hospice/social workers/dc planners, documenting/other paperwork and evaluating patient/reviewing data Status at Discharge: Cognitive status at discharge: cognitively intact, Behavioral status at discharge: cooperative, Functional status at discharge: independent ambulation Overall status at discharge: patient is progressing back to baseline Quality Metrics Clinical Quality Measures During this hospital stay, did patient experience: None Coding Level of Care Code Acute Chg FW DC note Diagnoses Drug-induced skin rash L27.0 CAD (coronary artery disease) I25.10 Coronary Disease-Associated Artery/Lesion type: [place] artery [place] vs. transplanted heart: [place] heart Associated angina: without angina Thrombocytopenia D69.6 DM type 1 (diabetes mellitus, type 1) E10.9 Diabetes mellitus complication status: without complication Obesity E66.9 Dyslipidemia E78.5
[2020-09-19 11:06] LABS: Glucose Point of Care 361 mg/dL (70-110)
[2020-09-19 11:40] VITALS: BP 121/62; PULSE 77; RESP 16; TEMP 36.8; O2SAT 96
[2020-09-19 12:39] VITALS: BP 121/62; PULSE 77; RESP 16; TEMP 36.8; O2SAT 96
[2020-09-19 14:48] LABS: Anti-Nuclear Antibody Screen NEGATIVE (NEGATIVE)
[2020-09-21 17:28] LABS: E. Chaffeensis AB IGG <1:64; E. Chaffeensis AB IGM <1:20; RMSF IGG NOT DETECTED; RMSF IGM NOT DETECTED
== END 2020-09-19 11:50 | disposition home or self-care (01) | DRG 607 ==
LOC: ER 19:25 → MEDSURG 19:44
PROVIDERS: Family Medicine; Internal Medicine; Internal Medicine Cardiovascular Disease; Admitting Provider Hospitalist; Emergency Provider Emergency Medicine; PCP Internal Medicine; Visit Provider Student in an Organized Health Care Education/Training Program
DX: L27.0 Generalized skin eruption due to drugs and medicaments taken internally (principal); T45.525A Adverse effect of antithrombotic drugs, initial encounter; I25.10 Atherosclerotic heart disease of native coronary artery without angina pectoris; Z95.5 Presence of coronary angioplasty implant and graft; E10.319 Type 1 diabetes mellitus with unspecified diabetic retinopathy without macular edema; E10.22 Type 1 diabetes mellitus with diabetic chronic kidney disease; I12.9 Hypertensive chronic kidney disease with stage 1 through stage 4 chronic kidney disease, or unspecified chronic kidney disease; N18.9 Chronic kidney disease, unspecified; E78.5 Hyperlipidemia, unspecified; E03.9 Hypothyroidism, unspecified; E66.9 Obesity, unspecified; Z68.32 Body mass index [BMI] 32.0-32.9, adult; D69.59 Other secondary thrombocytopenia; Z82.49 Family history of ischemic heart disease and other diseases of the circulatory system; Z79.01 Long term (current) use of anticoagulants; Z79.82 Long term (current) use of aspirin; Z79.4 Long term (current) use of insulin
CPT/HCPCS: 36415; 36416; 71045; 80053; 80500; 81001; 82550; 82962; 83615; 83735; 85025; 85610; 85651; 85730; 85999; 86038; 86140; 86618; 86666; 86757; 87086; 93005; 96374; 99285; C8929; J1200; J2920; J2930; J3490; Q0163; Q9956

== ENCOUNTER 2020-10-31 19:12 | Emergency (ER) | payer BC, SELFPAY ==
--- NOTE | 2020-10-31 20:11 | XRR_ITS ---
PROCEDURE INFORMATION: Exam: XR Chest Exam date and time: 10/31/2020 8:11 PM Age: 45 years old Clinical indication: Cough and shortness of breath; Patient HX: Cough, SOB, n/v, body aches x3days TECHNIQUE: Imaging protocol: XR of the chest. Views: 1 view. COMPARISON: CR (CHEST, ) 09/16/2020 7:05 PM FINDINGS: Lungs: Hazy opacity in the left lung base. Right lung is clear. Pleural spaces: Unremarkable. No pleural effusion. No pneumothorax. Heart/Mediastinum: Unremarkable. No cardiomegaly. Bones/joints: Unremarkable. XR/XR chest 1V portable [id number] IMPRESSION: 1. Hazy opacity in the left lung base may relate to soft tissue attenuation. Ground-glass opacity due to pneumonia cannot be excluded.
[2020-10-31 20:46] VITALS: BP 171/78; PULSE 125; RESP 28; TEMP 37.6; O2SAT 94; BMI 32.9
--- NOTE | 2020-10-31 21:04 | ECG_ITS ---
[facility] ED Test Date: 2020-10-31 Pat Name: Melina Hopkins Department: Room: Gender: Female Network Professional: : 1975 Requested By: Jhonatan Fofana Order Number: [id number] Gan MD: Maru Ferguson M.D. Measurements Intervals [place] Rate: 118 P: 50 LA: 119 QRS: -5 QRSD: 96 T: 61 QT: 318 QTc: 447 Interpretive Statements SINUS TACHYCARDIA WITH SHORT LA INTERVAL POSSIBLE LEFT ATRIAL ENLARGEMENT [-0.1mV P WAVE IN V1/V2] INCOMPLETE RIGHT BUNDLE BRANCH BLOCK [90+ ms QRS DURATION, TERMINAL R IN V1/V2, 40+ ms S IN I/aVL/V4/V5/V6] SEPTAL MYOCARDIAL INFARCTION [40+ ms Q WAVE IN V1/V2], PROBABLY OLD Compared to ECG 09/16/2020 18:13:54 Short LA interval now present Incomplete right bundle-branch block now present Myocardial infarct finding still present Electronically Signed On 11-06-2020 0:31:01 CDT by Maru Ferguson M.D. [email or web address]
--- NOTE | 2020-10-31 21:06 | W.ED.COVID ---
HPI - COVID General: Chief Complaint: COVID symptoms Stated Complaint: Possible COVID Time Seen by Provider: 10/31/20 20:43 Triage information: Has fever, cough or shortness of breath. Exposure to COVID + person last 14 days History of Present Illness: HPI Narrative: Patient is a 45-year-old female comes to the ED with nausea, vomiting, shortness of breath and cough. Past medical history of type 1 diabetes, hypothyroidism, CAD and had cardiac stent placed several months ago. Patient symptoms started 2 days ago. She states that her tested positive for COVID-19 a week ago. She was tested for COVID-19 last week as well and it was negative. She did not have symptoms at the time she was tested last week. She has not received the COVID-19 vaccination. For the last 2 days she has had severe nausea and vomiting. She says she has not been able to keep any food or fluids down at all. She also has a dry cough and denies any sputum production or any hemoptysis. She does endorse having some increased shortness of breath at rest and when up moving around. She also has nasal drainage and congestion and body aches but denies any fever, chest pain, abdominal pain, bladder or bowel symptoms. Patient says she has not been able to take any of her meds today because she cannot keep P.O. meds down. COVID 19 common symptoms: positive non-productive cough, dyspnea, body aches and nasal congestion; negative fever(s), chills, productive cough, fatigue, headache(s), throat pain, nausea, vomiting or diarrhea COVID 19 other sytmptoms: negative chest pain COVID Results: SARS-CoV-2 Antigen (Rapid) Positive (Negative) H 10/31/20 21:49 10/31/20 Review of Systems Const: Reports: body aches; Denies: fever(s), chills or fatigue Eyes: Denies: change in vision or eye discomfort ENMT: Reports: nasal discharge and nasal congestion; Denies: throat pain or odynophagia Card: Denies: chest pain, palpitations, edema, swelling of feet/ankles, dyspnea on exertion or orthopnea Resp: Reports: dyspnea and non-productive cough; Denies: productive cough GI: Denies: abdominal pain, nausea, vomiting, diarrhea, constipation or hematochezia : Denies: flank pain, dysuria or hematuria Musc: Denies: neck pain, back pain or extremity swelling Skin/Breast: Denies: rash or new lesions Neuro: Denies: headache(s), numbness in extremities or weakness in extremities PFSH ED PFSH: Medical History CAD (coronary artery disease) Diabetic retinopathy DM type 1 (diabetes mellitus, type 1) Dyslipidemia Gestational hypertension Hypothyroidism Obesity Surgical History History of appendectomy (08/05/14) with lysis of adhesions History of History of cholecystectomy History of eye surgery multiple both eyes for retinopathy, legally blind right eye S/P cardiac catheterization (09/11/20) S/P coronary artery stent placement (09/11/20) Family History Father CAD (coronary artery disease) Diabetes FH: CABG (coronary artery bypass surgery) x3 Arthritis Social History Alcohol intake: never Adopted: No Marital status: Number of children: 1 service: No History of recent travel: No Female Reproductive History: Date of last menstrual period: 08/30/20 Para: 1 Physical Exam Const: COMMON NORMALS: patient oriented x3 and alert GENERAL APPEARANCE: cooperative, comfortable, ill appearing and diaphoretic HENMT: COMMON NORMALS: normocephalic HEAD & SCALP: normocephalic MOUTH: moist mucous membranes abnormal Details: parched THROAT: posterior oropharynx normal and uvula midline Neck/C-Spine: COMMON NORMALS: supple GENERAL: Yes normal visual inspection Resp: COMMON NORMALS: normal respiratory effort, No retractions and No use of accessory muscles EFFORT & INSPECTION: Yes able to speak in complete sentences, Yes tachypneic, No respiratory distress and No labored AUSCULTATION: diminished lung sounds bilateral in the lower lung sep[place]veda Cardio: COMMON NORMALS: regular rhythm, S1 normal heart sound present, S2 normal heart sound present, No gallops present (Cardio), No clicks present (Cardio), No murmurs present (Cardio) and Peripheral pulses 2+ throughout RATE: tachycardic (125 bpm) RHYTHM: regular rhythm HEART SOUNDS: S1 normal heart sound present and S2 normal heart sound present PERIPHERAL PULSES: Peripheral pulses 2+ throughout GI: COMMON NORMALS: Normal to inspection, nondistended, normoactive bowel sounds present, Soft to palpation, non-tender and no masses PALPATION: Yes Soft to palpation : COMMON NORMALS: Yes no CVA tenderness BLADDER/KIDNEY EXAM: Yes no CVA tenderness Back/Pelvis: COMMON NORMALS: no CVA tenderness Extremity: COMMON NORMALS: normal to inspection Neuro: COMMON NORMALS: patient oriented x3 and moves all extremities SENSORIUM/ORIENTATION: Yes alert Skin: GENERAL SKIN EXAM: dry skin Course ED course: After patient received a liter of IV fluids, Zofran and then Reglan her symptoms of nausea improved greatly. Patient states she is feeling better. Vital Signs: Vital signs: Vital Signs Temperature 99.6 F 10/31/20 20:46 Pulse Rate 108 H 11/01/20 02:57 Respiratory Rate 22 H 11/01/20 02:57 Blood Pressure 132/84 11/01/20 02:57 Pulse Oximetry 91 11/01/20 02:57 MDM - COVID MDM Narrative: Medical decision making narrative: Patient is a 45-year-old female comes to the ED with nausea/vomiting. Patient has history of diabetes type 1, hypothyroidism and CAD. Patient tested positive for COVID-19 today. Patient's respirations were elevated around 22/min and pulse ox 91% on room air here in the ED. Patient's glucose level was 365 and she had a creatinine of 1.0 and a sodium of 131. D-dimer elevated and troponin negative. Lactic was 2.3. Chest x-ray shows some left lung base groundglass opacity. CTA of chest showed no PE, but did show multilobular groundglass opacities consistent with COVID-19 pneumonia. While here in the ED patient was given Zofran, Reglan, insulin, 2 L of IV fluids and a gram of Rocephin. Patient symptoms improved greatly and I discussed patient case with Dr. Nj and he recommended discharge home on oxygen. Vitals stable. Patient was placed on 2 L of oxygen continuously and order was placed with home health. Patient diagnosed with COVID-19 and hyperglycemia with type 1 diabetes. She was discharged home with home oxygen. Return to ED precautions given. Instructed on self quarantine. Told to follow-up with her PCP in 7 to 10 days for reevaluation. Patient understood and agreed with plan. Lab Data: Attestation: I reviewed the patient's lab results. Labs: Lab Results 10/31/20 10/31/20 10/31/20 Range/Units 21:49 21:49 21:49 WBC 8.6 (4.0-10.0) 10^3/ uL RBC 4.55 (4.1-5.3) 10^6/u L Hgb 13.1 (11.5-15.3) g/dL Hct 41.1 (37.0-47.0) % MCV 90.3 (81-99) fL MCH 28.8 (28.0-34.0) pg MCHC 31.9 (30.0-36.0) g/dL RDW 13.2 (12.1-15.1) % Plt Count 365 (130-400) 10^3/c mm MPV 10.6 H (7.4-10.4) fL Lymph % (Auto) Not Reportable [place] % (Auto) Not Reportable Lymph # (Auto) Not Reportable [place] # (Auto) Not Reportable Total Counted 100 (0-100) Atypical Lymphs % 1.0 (0-5) % Absolute Neutrophi ls 7.5 H (1.4-6.5) 10^3/c mm Segmented Neutroph ils 58 % Abs Segm Neuts (Ma n) 5.0 (1.6-7.1) 10/cmm Band Neutrophils 29.0 % Abs Band Neuts (Ma n) 2.5 H (0.0-1.2) 10^3/c mm Absolute Lymphocyt es 0.9 L (1.2-3.4) 10^3/c mm Lymphocytes (Manua l) 9 % Monocytes (Manual) 3.0 % Absolute Monocytes 0.3 (0.1-0.6) 10^3/c mm Eosinophils (Manua l) 0 % Absolute Eosinophi ls 0.0 (0.0-0.7) 10^3/c mm Basophils (Manual) 0.0 % Absolute Basophils 0.0 (0.0-0.2) 10^3/c mm Platelet Estimate Normal (Normal) D-Dimer 1.20 H (0-0.59) ug/mIFE U Sodium 131 L (136-145) mmol/L Potassium 3.8 (3.5-5.1) mmol/L Chloride 92 L (98-107) mmol/L Carbon Dioxide 21 L (22-29) mmol/L Anion Gap 21.8 H (5-19) BUN 10 (6-20) mg/dL Creatinine 1.0 H (0.5-0.9) mg/dL GFR Calculation 60.0 L (90-130) mL/min Glucose 365 H (65-115) mg/dL Calculated Osmolal ity 286 (285-295) mOsm/k g Lactic Acid (0.5-2.2) mmol/L Calcium 7.9 L (8.5-10.5) mg/dL Ferritin 1163 H (15-150) ng/mL Total Bilirubin 0.2 (0.15-1.2) mg/dL AST 51 H (0-32) U/L ALT 41 H (0-33) U/L Alkaline Phosphata se 84 (35-105) IU/L Troponin T Baselin e (0-10) ng/L Troponin T 120 Min [place] (0-10) ng/L Delta Troponin T (0-10) ABS# Total Protein 6.9 (6.6-8.7) g/dL Albumin 3.1 L (3.5-5.2) g/dL Globulin 3.8 (1.3-4.6) g/dL Lipase 8 L (13-60) U/L SARS-CoV-2 Ag (Rap id) (Negative) 10/31/20 10/31/20 10/31/20 Range/Units 21:49 21:49 21:49 WBC (4.0-10.0) 10^3/ uL RBC (4.1-5.3) 10^6/u L Hgb (11.5-15.3) g/dL Hct (37.0-47.0) % MCV (81-99) fL MCH (28.0-34.0) pg MCHC (30.0-36.0) g/dL RDW (12.1-15.1) % Plt Count (130-400) 10^3/c mm MPV (7.4-10.4) fL Lymph % (Auto) [place] % (Auto) Lymph # (Auto) [place] # (Auto) Total Counted (0-100) Atypical Lymphs % (0-5) % Absolute Neutrophi ls (1.4-6.5) 10^3/c mm Segmented Neutroph ils % Abs Segm Neuts (Ma n) (1.6-7.1) 10/cmm Band Neutrophils % Abs Band Neuts (Ma n) (0.0-1.2) 10^3/c mm Absolute Lymphocyt es (1.2-3.4) 10^3/c mm Lymphocytes (Manua l) % Monocytes (Manual) % Absolute Monocytes (0.1-0.6) 10^3/c mm Eosinophils (Manua l) % Absolute Eosinophi ls (0.0-0.7) 10^3/c mm Basophils (Manual) % Absolute Basophils (0.0-0.2) 10^3/c mm Platelet Estimate (Normal) D-Dimer (0-0.59) ug/mIFE U Sodium (136-145) mmol/L Potassium (3.5-5.1) mmol/L Chloride (98-107) mmol/L Carbon Dioxide (22-29) mmol/L Anion Gap (5-19) BUN (6-20) mg/dL Creatinine (0.5-0.9) mg/dL GFR Calculation (90-130) mL/min Glucose (65-115) mg/dL Calculated Osmolal ity (285-295) mOsm/k g Lactic Acid 2.3 H (0.5-2.2) mmol/L Calcium (8.5-10.5) mg/dL Ferritin (15-150) ng/mL Total Bilirubin (0.15-1.2) mg/dL AST (0-32) U/L ALT (0-33) U/L Alkaline Phosphata se (35-105) IU/L Troponin T Baselin e 13 H (0-10) ng/L Troponin T 120 Min [place] (0-10) ng/L Delta Troponin T (0-10) ABS# Total Protein (6.6-8.7) g/dL Albumin (3.5-5.2) g/dL Globulin (1.3-4.6) g/dL Lipase (13-60) U/L SARS-CoV-2 Ag (Rap id) Positive H (Negative) 07/28/21 Range/Units 00:30 WBC (4.0-10.0) 10^3/ uL RBC (4.1-5.3) 10^6/u L Hgb (11.5-15.3) g/dL Hct (37.0-47.0) % MCV (81-99) fL MCH (28.0-34.0) pg MCHC (30.0-36.0) g/dL RDW (12.1-15.1) % Plt Count (130-400) 10^3/c mm MPV (7.4-10.4) fL Lymph % (Auto) [place] % (Auto) Lymph # (Auto) [place] # (Auto) Total Counted (0-100) Atypical Lymphs % (0-5) % Absolute Neutrophi ls (1.4-6.5) 10^3/c mm Segmented Neutroph ils % Abs Segm Neuts (Ma n) (1.6-7.1) 10/cmm Band Neutrophils % Abs Band Neuts (Ma n) (0.0-1.2) 10^3/c mm Absolute Lymphocyt es (1.2-3.4) 10^3/c mm Lymphocytes (Manua l) % Monocytes (Manual) % Absolute Monocytes (0.1-0.6) 10^3/c mm Eosinophils (Manua l) % Absolute Eosinophi ls (0.0-0.7) 10^3/c mm Basophils (Manual) % Absolute Basophils (0.0-0.2) 10^3/c mm Platelet Estimate (Normal) D-Dimer (0-0.59) ug/mIFE U Sodium (136-145) mmol/L Potassium (3.5-5.1) mmol/L Chloride (98-107) mmol/L Carbon Dioxide (22-29) mmol/L Anion Gap (5-19) BUN (6-20) mg/dL Creatinine (0.5-0.9) mg/dL GFR Calculation (90-130) mL/min Glucose (65-115) mg/dL Calculated Osmolal ity (285-295) mOsm/k g Lactic Acid (0.5-2.2) mmol/L Calcium (8.5-10.5) mg/dL Ferritin (15-150) ng/mL Total Bilirubin (0.15-1.2) mg/dL AST (0-32) U/L ALT (0-33) U/L Alkaline Phosphata se (35-105) IU/L Troponin T Baselin e (0-10) ng/L Troponin T 120 Min [place] 12.27 H (0-10) ng/L Delta Troponin T -0.73 L (0-10) ABS# Total Protein (6.6-8.7) g/dL Albumin (3.5-5.2) g/dL Globulin (1.3-4.6) g/dL Lipase (13-60) U/L SARS-CoV-2 Ag (Rap id) (Negative) Imaging Data: CXR: Attestation: I personally reviewed and interpreted this imaging study as follows: Radiologist's impression: [address] [address] XRay Report Signed Patient: Melina Hopkins Unit #: [id number] : 1975 Age/Sex: 45 / F ADM Date: 10/31/20 Loc: ER Room/Bed: Attending Dr: Ordering Provider/Ordering MD: Selma Nj MD Date of Service: 10/31/20 Procedure(s): XR chest 1V portable [id number] Accession Number(s): [id number] Report Number: [id number] PROCEDURE INFORMATION: Exam: XR Chest Exam date and time: 10/31/2020 8:11 PM Age: 45 years old Clinical indication: Cough and shortness of breath; Patient HX: Cough, SOB, n/v, body aches x3days TECHNIQUE: Imaging protocol: XR of the chest. Views: 1 view. COMPARISON: CR (CHEST, ) 09/16/2020 7:05 PM FINDINGS: Lungs: Hazy opacity in the left lung base. Right lung is clear. Pleural spaces: Unremarkable. No pleural effusion. No pneumothorax. Heart/Mediastinum: Unremarkable. No cardiomegaly. Bones/joints: Unremarkable. XR/XR chest 1V portable [id number] IMPRESSION: 1. Hazy opacity in the left lung base may relate to soft tissue attenuation. Ground-glass opacity due to pneumonia cannot be excluded. Dictated By: Hank Brunner Signed By: Hank Brunner Signed Date/Time: 10/31/202129 DD/ 28 CTA Chest: Attestation: I personally reviewed and interpreted this imaging study as follows: Radiologist's impression: [facility] [address] [place] [address] CT Scan Report Signed Patient: Melina Hopkins Unit #: [id number] : 1975 Age/Sex: 45 / F ADM Date: 10/31/20 Loc: ER Room/Bed: Attending Dr: Ordering Provider/Ordering MD: Jhonatan Fofana Date of Service: 10/31/20 Procedure(s): CT angio chest PE protcl [id number] Accession Number(s): [id number] Report Number: [id number] PROCEDURE INFORMATION: Exam: CTA Chest With Contrast Exam date and time: 10/31/2020 10:29 PM Age: 45 years old Clinical indication: Cough and fever and shortness of breath; Prior surgery; Surgery type: Stents, gb; Additional info: SOB, tachycardic, elevated d dimer TECHNIQUE: Imaging protocol: Computed tomographic angiography of the chest with contrast. 3D rendering (Not supervised by radiologist): MIP and/or 3D reconstructed images were created by the technologist. Radiation optimization: All CT scans at this facility use at least one of these dose optimization techniques: automated exposure control; mA and/or kV adjustment per patient size (includes targeted exams where dose is matched to clinical indication); or iterative reconstruction. Contrast material: OMNI 350; Contrast volume: 58 ml; Contrast route: INTRAVENOUS (IV); COMPARISON: CR (CHEST, ) 10/31/2020 8:45 PM RADIATION DOSE METRICS: Total DLP (mGy-cm): 880.1 FINDINGS: Pulmonary arteries: Normal. No pulmonary emboli. Aorta: Unremarkable. No aortic aneurysm. No aortic dissection. Lungs: Patchy ground-glass opacities scattered throughout all lung lobes. Pleural spaces: Unremarkable. No pneumothorax. No pleural effusion. Heart: Unremarkable. No cardiomegaly. No pericardial effusion. Lymph nodes: Prominent mediastinal and hilar lymph nodes are most likely reactive. Gallbladder and bile ducts: Cholecystectomy. Kidneys and ureters: Fluid density cyst in the left kidney, Hounsfield units less than 20. No follow-up imaging is recommended. Excreted contrast into the bilateral renal collecting system. Bones/joints: Unremarkable. No acute fracture. Soft tissues: Unremarkable. CT/CT angio chest PE protcl [id number] IMPRESSION: 1. No evidence for pulmonary embolus. 2. Multilobar ground-glass opacities, consistent with pneumonia. This pattern is nonspecific and can be seen with COVID-19 pneumonia as well as other infectious etiologies. COMMENTS: Consistent with the [employer]'s Incidental Findings Committee white paper (J Am Kendall Radiol 2018): Any incidental renal lesion less than 1 cm or classified as too small to characterize, or any incidental cystic renal lesion characterized as simple-appearing, is likely benign. No follow-up imaging is recommended for these lesions per consensus recommendations based on imaging criteria. Radiation Dose CTDIVOL = (mGy): DLP = 880.1 (mGy-cm) Dictated By: Hank Brunner Signed By: Hank Brunner Signed Date/Time: 10/31/202321 DD/ 20 EKG Data: EKG 1: Attestation: I personally reviewed and interpreted this EKG as follows: EKG interpretation date: 10/31/20 Interpretation: Sinus tachycardia, 118 bpm, no ST segment elevation or depression seen. COVID Results: SARS-CoV-2 Antigen (Rapid) Positive (Negative) H 10/31/20 21:49 10/31/20 Discharge Plan Discharge Patient Disposition: Home Clinical Impression: COVID-19, Hyperglycemia due to type 1 diabetes mellitus Condition: Stable Prescriptions: New ondansetron 4 mg tablet,disintegrating 4 mg PO Q8H PRN (Reason: nausea and vomiting) Qty: 20 RF: 0 No Action Brilinta 90 mg tablet 90 mg PO BID Qty: 60 RF: 6 hydrochlorothiazide 12.5 mg tablet 12.5 mg PO DAILY PRN (Reason: swelling) Qty: 30 RF: 2 metoprolol tartrate 25 mg tablet 25 mg PO BID Qty: 120 RF: 1 losartan 100 mg Tablet 100 mg PO DAILY RF: 0 levothyroxine 150 mcg Tablet 150 mcg PO DAILY RF: 0 montelukast 10 mg Tablet 10 mg PO DAILY RF: 0 aspirin 81 mg Tablet,Delayed Release (Dr/Ec) 81 mg PO DAILY Qty: 90 RF: 3 duloxetine 60 mg capsule, delayed rel sprinkle 60 mg PO DAILY RF: 0 nitroglycerin 0.4 mg tablet, sublingual 0.4 mg sublingual Q5M PRN (Reason: Chest Pain) RF: 0 atorvastatin 20 mg tablet 20 mg PO BEDTIME RF: 0 [place] 3 Fish Oil 1,000 mg PO DAILY RF: 0 (DME) Omnipod Insulin Management RF: 0 insulin lispro See Rx Instructions .ROUTE .COMPLEX RF: 0 famotidine 20 mg Tablet 20 mg PO BID RF: 0 Discharge Orders: Discharge ED (Routine); Ordered 11/01/20 Ordered By: Jhonatan Fofana Other Ambulatory Orders: DME: Oxygen (Order) Location: None Selected Ordered By: Selma Nj Referrals: Magdi Ricks MD [Primary Care Provider] - Discharge Diet: Regular Discharge Activity: Increase activity as tolerated Patient Instructions: Using Oxygen at Home (ED) Activity Restrictions/Additional Instructions: Follow-up with medical provider as directed in 5 days for reevaluation. Take medications as prescribed. Self quarantine for the next 10 days starting on the day of onset of symptoms. Make sure to drink plenty of fluids and stay hydrated. Return to the ER or your medical provider if condition worsens. Please read and understand discharge instructions. Thank you for choosing [facility] for your healthcare needs today. Please realize this is an emergency room and that we are providing you with a medical screening exam and this may not be complete and all inclusive of all the testing and or work up that you may need to determine your ailment or severity of your illness. It is very important that you follow up as instructed or that you return to the Emergency Department should you have concerns or if your condition changes or worsens in any way. Coding Level of Care Code ED [employer] for [employer] Exam Comprehensive
[2020-10-31] MEDS: ondansetron 2 mg/ML SDV 2 mL 4 MG IVP (21:56)
[2020-10-31] MEDS: sodium chloride 0.9% 1,000 ML 999 ML IV (21:56)
[2020-10-31 22:04] LABS: Hematocrit 41.1 % (37.0-47.0); Hemoglobin 13.1 g/dL (11.5-15.3); Mean Corpuscular HGB Conc 31.9 g/dL (30.0-36.0); Mean Corpuscular Hemoglobin 28.8 pg (28.0-34.0); Mean Corpuscular Volume 90.3 fL (81-99); Mean Platelet Volume 10.6 fL (7.4-10.4); Platelet Count 365 10^3/cmm (130-400); Red Blood Count 4.55 10^6/uL (4.1-5.3); Red Cell Distribution Width 13.2 % (12.1-15.1); White Blood Count 8.6 10^3/uL (4.0-10.0)
[2020-10-31 22:25] LABS: Lactic Sepsis W/Reflex 2.3 mmol/L (0.5-2.2); Troponin(5th) Baseline 13 ng/L (0-10)
[2020-10-31 22:26] VITALS: BP 157/78; PULSE 133; RESP 27; O2SAT 97
[2020-10-31 22:27] LABS: Alanine Aminotransferase 41 U/L (0-33); Albumin Level 3.1 g/dL (3.5-5.2); Alkaline Phosphatase 84 IU/L (35-105); Anion Gap 21.8 (5-19); Aspartate Amino Transferase 51 U/L (0-32); Blood Urea Nitrogen 10 mg/dL (6-20); Calcium 7.9 mg/dL (8.5-10.5); Carbon Dioxide 21 mmol/L (22-29); Chloride 92 mmol/L (98-107); Globulin 3.8 g/dL (1.3-4.6); Glucose 365 mg/dL (65-115); Lipase 8 U/L (13-60); Osmolality Calculated 286 mOsm/kg (285-295); Potassium 3.8 mmol/L (3.5-5.1); Sodium 131 mmol/L (136-145); Total Bilirubin 0.2 mg/dL (0.15-1.2); Total Protein 6.9 g/dL (6.6-8.7)
--- NOTE | 2020-10-31 22:29 | CTR_ITS ---
PROCEDURE INFORMATION: Exam: CTA Chest With Contrast Exam date and time: 10/31/2020 10:29 PM Age: 45 years old Clinical indication: Cough and fever and shortness of breath; Prior surgery; Surgery type: Stents, gb; Additional info: SOB, tachycardic, elevated d dimer TECHNIQUE: Imaging protocol: Computed tomographic angiography of the chest with contrast. 3D rendering (Not supervised by radiologist): MIP and/or 3D reconstructed images were created by the technologist. Radiation optimization: All CT scans at this facility use at least one of these dose optimization techniques: automated exposure control; mA and/or kV adjustment per patient size (includes targeted exams where dose is matched to clinical indication); or iterative reconstruction. Contrast material: OMNI 350; Contrast volume: 58 ml; Contrast route: INTRAVENOUS (IV); COMPARISON: CR (CHEST, ) 10/31/2020 8:45 PM RADIATION DOSE METRICS: Total DLP (mGy-cm): 880.1 FINDINGS: Pulmonary arteries: Normal. No pulmonary emboli. Aorta: Unremarkable. No aortic aneurysm. No aortic dissection. Lungs: Patchy ground-glass opacities scattered throughout all lung lobes. Pleural spaces: Unremarkable. No pneumothorax. No pleural effusion. Heart: Unremarkable. No cardiomegaly. No pericardial effusion. Lymph nodes: Prominent mediastinal and hilar lymph nodes are most likely reactive. Gallbladder and bile ducts: Cholecystectomy. Kidneys and ureters: Fluid density cyst in the left kidney, Hounsfield units less than 20. No follow-up imaging is recommended. Excreted contrast into the bilateral renal collecting system. Bones/joints: Unremarkable. No acute fracture. Soft tissues: Unremarkable. CT/CT angio chest PE protcl [id number] IMPRESSION: 1. No evidence for pulmonary embolus. 2. Multilobar ground-glass opacities, consistent with pneumonia. This pattern is nonspecific and can be seen with COVID-19 pneumonia as well as other infectious etiologies. COMMENTS: Consistent with the [employer]'s Incidental Findings Committee white paper (J Am Kendall Radiol 2018): Any incidental renal lesion less than 1 cm or classified as too small to characterize, or any incidental cystic renal lesion characterized as simple-appearing, is likely benign. No follow-up imaging is recommended for these lesions per consensus recommendations based on imaging criteria. Radiation Dose CTDIVOL = (mGy): DLP = 880.1 (mGy-cm)
[2020-10-31 22:30] VITALS: O2SAT 97
[2020-10-31 22:31] LABS: SARS Covid-2 Antigen Positive (Negative)
[2020-10-31 22:35] LABS: Slide Review Slide Review Perform
[2020-10-31 22:36] LABS: Absolute Neutrophil 7.5 10^3/cmm (1.4-6.5); Band Neutrophils Absolute 2.5 10^3/cmm (0.0-1.2); Eosinophils 0 %; Lymphocytes 9 %; Lymphocytes Absolute 0.9 10^3/cmm (1.2-3.4); Monocytes Absolute 0.3 10^3/cmm (0.1-0.6); Platelet Estimate Normal (Normal); Segmented Neutrophils 58 %; Total Cells Counted 100 (0-100)
[2020-10-31] MEDS: metoclopramide 5 mg/mL SDV 2 mL 10 MG IVP (22:36)
[2020-10-31 22:58] LABS: Ferritin 1163 ng/mL (15-150)
[2020-10-31] MEDS: iohexol 350 mg/mL 100 mL Btl IV (23:07)
--- NOTE | 2020-10-31 23:51 | PC.NURSE ---
Assumed care of this patient at 2300 10/31/20 from MOISES Walker
[2020-10-31 23:59] LABS: Reflex Lactate Order REFLEX LACTIC ORDERD
--- NOTE | 2020-11-01 00:43 | PC.NURSE ---
0030 Pt called out for assistance; upon entry to room, IV found to be lying on the floor, catheter intact. Pt states she got up to the bedside commode and I guess my IV came out. Bandage applied to LFA.
[2020-11-01] MEDS: insulin regular-human 100 units/1 mL 7 UNIT IVP (00:44)
[2020-11-01] MEDS: metoprolol tartrate 25 mg Tablet PO (00:45)
--- NOTE | 2020-11-01 00:47 | PC.NURSE ---
Patient accidentally ripped out 18G IV to the left AC. Patient and room cleaned.
[2020-11-01] MEDS: sodium chloride 0.9% 500 ML 999 ML IV (00:49)
[2020-11-01] MEDS: cefTRIAXone 1,000 MG in sodium chloride 0.9% (plus) 100 ML 200 MG IV (00:51)
[2020-11-01 00:56] VITALS: BP 158/88; PULSE 130; RESP 41; O2SAT 96
[2020-11-01 01:37] LABS: Troponin 5 2HR 12.27 ng/L (0-10)
[2020-11-01 01:38] LABS: Troponin 5 2HR Delta -0.73 ABS# (0-10)
[2020-11-01] MEDS: dexamethasone 4 mg/mL INJ 8 MG IVP (02:38)
[2020-11-01 02:47] VITALS: BP 132/84; PULSE 107; RESP 29; O2SAT 91
[2020-11-01 02:57] VITALS: BP 132/84; PULSE 108; RESP 22; O2SAT 91
== END 2020-11-01 03:18 | disposition home or self-care (01) ==
PROVIDERS: Emergency Provider Physician Assistant; PCP Internal Medicine
DX: U07.1 COVID-19 (principal); E10.65 Type 1 diabetes mellitus with hyperglycemia; E03.9 Hypothyroidism, unspecified; E78.5 Hyperlipidemia, unspecified; I25.10 Atherosclerotic heart disease of native coronary artery without angina pectoris; E66.9 Obesity, unspecified; Z68.32 Body mass index [BMI] 32.0-32.9, adult; Z79.82 Long term (current) use of aspirin; Z95.5 Presence of coronary angioplasty implant and graft
CPT/HCPCS: 71045; 71275; 80053; 82728; 83605; 83690; 84484; 85007; 85025; 85378; 87040; 87426; 93005; 96365; 96375; 99284; J0696; J1100; J1815; J2405; J2765; J7030; J7040; Q9967

== ENCOUNTER 2020-11-04 08:37 | Inpatient (IN) | payer BC, SELFPAY ==
[2020-11-04] VITALS (12 sets, daily range): BP systolic 109–145; BP diastolic 56–74; PULSE 87–123; RESP 18–42; TEMP 36.9; O2SAT 69–100; BMI 32.9
--- NOTE | 2020-11-04 08:47 | XRR_ITS ---
PROCEDURE INFORMATION: Exam: XR Chest Exam date and time: 11/04/2020 8:47 AM Age: 45 years old Clinical indication: Shortness of breath; Patient HX: Covid; Additional info: Dyspnea/cough TECHNIQUE: Imaging protocol: XR of the chest. Views: 1 view. COMPARISON: CR (CHEST, ) 10/31/2020 8:45 PM FINDINGS: Lungs: There are diffuse bilateral interstitial pulmonary infiltrates which have increased in prominence since previous study and which are consistent with interstitial viral pneumonia. Pleural spaces: Unremarkable. No pleural effusion. No pneumothorax. Heart/Mediastinum: Unremarkable. No cardiomegaly. Bones/joints: Unremarkable. XR/XR chest 1V portable [id number] IMPRESSION: Worsening bilateral interstitial pulmonary infiltrates.
--- NOTE | 2020-11-04 08:54 | PC.NURSE ---
First blood culture and blood drawn from IV
--- NOTE | 2020-11-04 08:56 | PC.NURSE ---
2nd blood culture drawn from [facility], via venipuncture.
[2020-11-04 09:08] LABS: Basophils % 0.5 %; Eosinophils # 0.2 10^3/uL (0.0-0.8); Eosinophils % 2.3 %; Hematocrit 38.6 % (37.0-47.0); Hemoglobin 12.7 g/dL (11.5-15.3); Lymphocytes # 0.9 10^3/uL (0.8-4.8); Lymphocytes % 9.7 %; Mean Corpuscular HGB Conc 32.9 g/dL (30.0-36.0); Mean Corpuscular Hemoglobin 28.8 pg (28.0-34.0); Mean Corpuscular Volume 87.5 fL (81-99); Mean Platelet Volume 10.7 fL (7.4-10.4); Monocytes # 0.4 10^3/uL (0.2-0.9); Monocytes % 4.2 %; Neutrophils # 6.73 10^3/uL (1.8-7.7); Nucleated Red Blood Cells % 0 %; Platelet Count 297 10^3/cmm (130-400); Red Blood Count 4.41 10^6/uL (4.1-5.3); Red Cell Distribution Width 13.4 % (12.1-15.1); White Blood Count 8.8 10^3/uL (4.0-10.0)
--- NOTE | 2020-11-04 09:12 | ED_ITS ---
HPI - COVID General: Chief Complaint: ER Hold Stated Complaint: covid +, sob Time Seen by Provider: 11/04/20 08:44 Triage information: Has fever, cough or shortness of breath . No known COVID + exposure last 14 days History of Present Illness: HPI Narrative: 45-year-old female with known Covid positive. She was diagnosed 4 days ago she wasIn the low 80s. sent home with oxygen at the time of diagnosis. Overnight she has become markedly more short of breath on arrival here on her 3 L by nasal cannula she is saturating iat 69%. When changed to a nonrebreather at 15 L/min she goes up to 100%. complaint: known COVID positive Prior covid testing: yes, results known Prior testing date: 10/31/20 COVID 19 common symptoms: positive fever(s), chills, cough, non-productive cough, dyspnea, fatigue, body aches, headache(s), loss of sense of smell and/or taste, throat pain, nasal congestion and nausea COVID 19 other sytmptoms: positive requiring oxygen and requiring more oxygen; negative chest pain Onset (ago): day(s) (4) Severity: severe Pertinent comorbid conditions: diabetes, hypertension and heart disease COVID Results: SARS-CoV-2 Antigen (Rapid) Positive (Negative) H 10/31/20 21:49 10/31/20 Review of Systems Const: Reports: fever(s), chills, body aches and fatigue ENMT: Reports: throat pain and nasal congestion Card: Denies: chest pain, edema, dyspnea on exertion or orthopnea Resp: Reports: dyspnea and non-productive cough GI: Reports: nausea : Denies: flank pain, difficulty voiding, dysuria, urinary frequency or urinary urgency Skin/Breast: Denies: rash or pruritus Neuro: Reports: headache(s) PFSH ED PFSH: Medical History CAD (coronary artery disease) Diabetic retinopathy DM type 1 (diabetes mellitus, type 1) Dyslipidemia Gestational hypertension Hypothyroidism Obesity Surgical History History of appendectomy (08/05/14) with lysis of adhesions History of History of cholecystectomy History of eye surgery multiple both eyes for retinopathy, legally blind right eye S/P cardiac catheterization (09/11/20) S/P coronary artery stent placement (09/11/20) Family History Father CAD (coronary artery disease) Diabetes FH: CABG (coronary artery bypass surgery) x3 Arthritis Social History Alcohol intake: never Adopted: No Marital status: Number of children: 1 service: No History of recent travel: No Female Reproductive History: Date of last menstrual period: 08/30/20 Para: 1 Physical Exam Const: ORIENTATION/CONSCIOUSNESS: Yes awake, Yes oriented to person, Yes oriented to place and Yes oriented to time HENMT: COMMON NORMALS: normocephalic and atraumatic HEAD & SCALP: normocephalic and atraumatic Eye: COMMON NORMALS: Equal, round and reactive pupils present, EOMs intact bilaterally, conjunctivae normal and no scleral icterus CONJUNCTIVA: Yes conjunctivae normal PUPIL: Yes Equal, round and reactive pupils present Neck/C-Spine: COMMON NORMALS: full ROM, no lymphadenopathy, supple and no JVD Lymph: LYMPHATIC: no lymphadenopathy noted and no lymphedema noted Resp: AUSCULTATION: rhonchi and wheezes Cardio: COMMON NORMALS: no JVD, regular rate, regular rhythm and No murmurs present (Cardio) RATE: regular rate RHYTHM: regular rhythm GI: COMMON NORMALS: Soft to palpation and No hepatosplenomegaly present AUSCULTATION: Yes normoactive bowel sounds PALPATION: Yes Soft to palpation, No Tenderness to palpation present (GI), No Guarding due to palpation present (GI) and Yes No hepatosplenomegaly present Extremity: COMMON NORMALS: normal to inspection, capillary refill normal, no clubbing, cyanosis or edema, no calf tenderness and no pedal edema Neuro: SENSORIUM/ORIENTATION: Yes oriented to person, Yes oriented to place and Yes oriented to time Skin: COMMON NORMALS: no rashes or lesions noted GENERAL SKIN EXAM: no rashes or lesions noted Course Vital Signs: Vital signs: Vital Signs Temperature 98.4 F 11/04/20 08:54 Pulse Rate 68 11/05/20 16:00 Respiratory Rate 22 H 11/05/20 12:13 Blood Pressure 136/57 11/04/20 15:00 Pulse Oximetry 93 11/05/20 16:00 MDM - COVID MDM Narrative: Medical decision making narrative: Patient has significantly worsening him pneumonitis secondary to Covid. She started on high flow nasal cannula oxygen. Seem to be drastically worseningAnd we are considering intubation however when I went to discuss with the patient during the course conversation noticed there is an equipment problem in her high flow nasal cannula of the tubing had to warn was not delivering oxygen properly. We repaired the tubing at the bedside and then called RT to reevaluate to ensure that it was working properly her saturations markedly improved as soon as that was corrected. Patient was not intubated. Lab Data: Labs: Lab Results 11/04/20 11/04/20 11/04/20 Range/Units 08:54 08:54 08:54 WBC 8.8 (4.0-10.0) 10^3/ uL RBC 4.41 (4.1-5.3) 10^6/u L Hgb 12.7 (11.5-15.3) g/dL Hct 38.6 (37.0-47.0) % MCV 87.5 (81-99) fL MCH 28.8 (28.0-34.0) pg MCHC 32.9 (30.0-36.0) g/dL RDW 13.4 (12.1-15.1) % Plt Count 297 (130-400) 10^3/c mm MPV 10.7 H (7.4-10.4) fL Neut % (Auto) 83.3 % Lymph % (Auto) 9.7 % [place] % (Auto) 4.2 % Eos % (Auto) 2.3 % Baso % (Auto) 0.5 % Neut # (Auto) 6.73 (1.8-7.7) 10^3/u L Lymph # (Auto) 0.9 (0.8-4.8) 10^3/u L [place] # (Auto) 0.4 (0.2-0.9) 10^3/u L Eos # (Auto) 0.2 (0.0-0.8) 10^3/u L Baso # (Auto) 0.0 (0.0-0.1) 10^3/u L Nucleated RBC % (a uto) 0 % Nucleated RBCs # 0.0 /100WBC D-Dimer 1.11 H (0-0.59) ug/mIFE U Specimen Type Sample Site ABG pH (7.35-7.45) ABG pCO2 (35-45) mmHg ABG pO2 (80.0-100.0) mmH g ABG HCO3 (22-26) mmol/L ABG O2 Saturation ABG Base Excess (-2.0-2.0) mmol/ L Calderon Test A-a O2 Gradient (5-10) mmHg Hematocrit (37-47) % Hgb O2 Saturation (95-100) % Carboxyhemoglobin (0.4-20.1) %THgb Methemoglobin (0.4-1.5) % Total Hemoglobin (12-16) g/dL Ionized Calcium (1.1-1.4) mmol/L O2 Liters/Min % FiO2 % Grants Specialist ID Sodium 133 L (136-145) mmol/L Potassium 3.5 (3.5-5.1) mmol/L Chloride 94 L (98-107) mmol/L Carbon Dioxide 26 (22-29) mmol/L Anion Gap 16.5 (5-19) BUN 11 (6-20) mg/dL Creatinine 0.9 (0.5-0.9) mg/dL GFR Calculation 67.7 L (90-130) mL/min Glucose 114 (65-115) mg/dL Calculated Osmolal ity 276 L (285-295) mOsm/k g Lactic Acid (0.5-2.2) mmol/L Calcium 7.9 L (8.5-10.5) mg/dL Total Bilirubin 0.4 (0.15-1.2) mg/dL AST 35 H (0-32) U/L ALT 26 (0-33) U/L Alkaline Phosphata se 65 (35-105) IU/L C-Reactive Protein 109.6 H (0.0-4.9) mg/L Total Protein 6.4 L (6.6-8.7) g/dL Albumin 2.9 L (3.5-5.2) g/dL Globulin 3.5 (1.3-4.6) g/dL Procalcitonin (0-0.5) ng/mL Urine Color (Yellow) Urine Appearance (CLEAR) Urine pH (5-7) Ur Specific Gravit y (1.005-1.030) Urine Protein (Negative) Urine Glucose (UA) (Normal) Urine Ketones (Negative) Urine Blood (Negative) Urine Nitrate (Negative) Urine Bilirubin (Negative) Urine Urobilinogen (Negative) mg/dL Ur Leukocyte Holly ase (Negative) Urine RBC (0-2) /hpf Urine WBC (0-5) /hpf Ur Squamous Epith Cells (0-5) /hpf Amorphous Sediment Urine Bacteria (NONE) /hpf Urine Mucus /hpf Urine Yeast /hpf 11/04/20 11/04/20 11/04/20 Range/Units 08:54 08:54 09:12 WBC (4.0-10.0) 10^3/ uL RBC (4.1-5.3) 10^6/u L Hgb (11.5-15.3) g/dL Hct (37.0-47.0) % MCV (81-99) fL MCH (28.0-34.0) pg MCHC (30.0-36.0) g/dL RDW (12.1-15.1) % Plt Count (130-400) 10^3/c mm MPV (7.4-10.4) fL Neut % (Auto) % Lymph % (Auto) % [place] % (Auto) % Eos % (Auto) % Baso % (Auto) % Neut # (Auto) (1.8-7.7) 10^3/u L Lymph # (Auto) (0.8-4.8) 10^3/u L [place] # (Auto) (0.2-0.9) 10^3/u L Eos # (Auto) (0.0-0.8) 10^3/u L Baso # (Auto) (0.0-0.1) 10^3/u L Nucleated RBC % (a uto) % Nucleated RBCs # /100WBC D-Dimer (0-0.59) ug/mIFE U Specimen Type Arterial Sample Site Brachial, right ABG pH 7.53 H (7.35-7.45) ABG pCO2 31.3 L (35-45) mmHg ABG pO2 48.8 L (80.0-100.0) mmH g ABG HCO3 25.9 (22-26) mmol/L ABG O2 Saturation 87.1 ABG Base Excess 3.5 H (-2.0-2.0) mmol/ L Calderon Test Pos A-a O2 Gradient 71.8 H (5-10) mmHg Hematocrit 38.2 (37-47) % Hgb O2 Saturation 86.1 L (95-100) % Carboxyhemoglobin 0.8 (0.4-20.1) %THgb Methemoglobin 0.4 (0.4-1.5) % Total Hemoglobin 12.5 (12-16) g/dL Ionized Calcium 1.1 (1.1-1.4) mmol/L O2 Liters/Min 45.0 % FiO2 90.0 % Grants Specialist ID jmn Sodium 133.0 (136-145) mmol/L Potassium 3.4 L (3.5-5.1) mmol/L Chloride (98-107) mmol/L Carbon Dioxide (22-29) mmol/L Anion Gap (5-19) BUN (6-20) mg/dL Creatinine (0.5-0.9) mg/dL GFR Calculation (90-130) mL/min Glucose 143.0 H (65-115) mg/dL Calculated Osmolal ity (285-295) mOsm/k g Lactic Acid 1.9 (0.5-2.2) mmol/L Calcium (8.5-10.5) mg/dL Total Bilirubin (0.15-1.2) mg/dL AST (0-32) U/L ALT (0-33) U/L Alkaline Phosphata se (35-105) IU/L C-Reactive Protein (0.0-4.9) mg/L Total Protein (6.6-8.7) g/dL Albumin (3.5-5.2) g/dL Globulin (1.3-4.6) g/dL Procalcitonin 0.27 (0-0.5) ng/mL Urine Color (Yellow) Urine Appearance (CLEAR) Urine pH (5-7) Ur Specific Gravit y (1.005-1.030) Urine Protein (Negative) Urine Glucose (UA) (Normal) Urine Ketones (Negative) Urine Blood (Negative) Urine Nitrate (Negative) Urine Bilirubin (Negative) Urine Urobilinogen (Negative) mg/dL Ur Leukocyte Holly ase (Negative) Urine RBC (0-2) /hpf Urine WBC (0-5) /hpf Ur Squamous Epith Cells (0-5) /hpf Amorphous Sediment Urine Bacteria (NONE) /hpf Urine Mucus /hpf Urine Yeast /hpf 11/04/20 Range/Units 10:19 WBC (4.0-10.0) 10^3/ uL RBC (4.1-5.3) 10^6/u L Hgb (11.5-15.3) g/dL Hct (37.0-47.0) % MCV (81-99) fL MCH (28.0-34.0) pg MCHC (30.0-36.0) g/dL RDW (12.1-15.1) % Plt Count (130-400) 10^3/c mm MPV (7.4-10.4) fL Neut % (Auto) % Lymph % (Auto) % [place] % (Auto) % Eos % (Auto) % Baso % (Auto) % Neut # (Auto) (1.8-7.7) 10^3/u L Lymph # (Auto) (0.8-4.8) 10^3/u L [place] # (Auto) (0.2-0.9) 10^3/u L Eos # (Auto) (0.0-0.8) 10^3/u L Baso # (Auto) (0.0-0.1) 10^3/u L Nucleated RBC % (a uto) % Nucleated RBCs # /100WBC D-Dimer (0-0.59) ug/mIFE U Specimen Type Sample Site ABG pH (7.35-7.45) ABG pCO2 (35-45) mmHg ABG pO2 (80.0-100.0) mmH g ABG HCO3 (22-26) mmol/L ABG O2 Saturation ABG Base Excess (-2.0-2.0) mmol/ L Calderon Test A-a O2 Gradient (5-10) mmHg Hematocrit (37-47) % Hgb O2 Saturation (95-100) % Carboxyhemoglobin (0.4-20.1) %THgb Methemoglobin (0.4-1.5) % Total Hemoglobin (12-16) g/dL Ionized Calcium (1.1-1.4) mmol/L O2 Liters/Min % FiO2 % Grants Specialist ID Sodium (136-145) mmol/L Potassium (3.5-5.1) mmol/L Chloride (98-107) mmol/L Carbon Dioxide (22-29) mmol/L Anion Gap (5-19) BUN (6-20) mg/dL Creatinine (0.5-0.9) mg/dL GFR Calculation (90-130) mL/min Glucose (65-115) mg/dL Calculated Osmolal ity (285-295) mOsm/k g Lactic Acid (0.5-2.2) mmol/L Calcium (8.5-10.5) mg/dL Total Bilirubin (0.15-1.2) mg/dL AST (0-32) U/L ALT (0-33) U/L Alkaline Phosphata se (35-105) IU/L C-Reactive Protein (0.0-4.9) mg/L Total Protein (6.6-8.7) g/dL Albumin (3.5-5.2) g/dL Globulin (1.3-4.6) g/dL Procalcitonin (0-0.5) ng/mL Urine Color Yellow (Yellow) Urine Appearance Cloudy (CLEAR) Urine pH 6 (5-7) Ur Specific Gravit y 1.010 (1.005-1.030) Urine Protein 3+ H (Negative) Urine Glucose (UA) Norm (Normal) Urine Ketones 2+ H (Negative) Urine Blood 2+ H (Negative) Urine Nitrate Negative (Negative) Urine Bilirubin Neg (Negative) Urine Urobilinogen Norm (Negative) mg/dL Ur Leukocyte Holly ase Negative (Negative) Urine RBC 5-10 H (0-2) /hpf Urine WBC 5-10 H (0-5) /hpf Ur Squamous Epith Cells 80-100 H (0-5) /hpf Amorphous Sediment Not Reportable Urine Bacteria 2+ H (NONE) /hpf Urine Mucus 2+ /hpf Urine Yeast 1+ H /hpf COVID Results: SARS-CoV-2 Antigen (Rapid) Positive (Negative) H 10/31/20 21:49 10/31/20 Discharge Plan Discharge Patient Disposition: Admitted As Inpatient Admit Provider: Jose L Poe Clinical Impression: COVID-19, DM type 1 (diabetes mellitus, type 1), CAD (coronary artery disease) Condition: Stable Coding Level of Care Code 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
[2020-11-04 09:23] LABS: ABG PCO2 31.3 mmHg (35-45); ABG PH Result 7.53 (7.35-7.45); Alveolar-Arterial Oxygen Gradi 71.8 mmHg (5-10); Arterial Blood Gas Hematocrit 38.2 % (37-47); Base Excess ABG 3.5 mmol/L (-2.0-2.0); Blood Gas Allen Test Pos; Blood Gas Sample Site Brachial, right; Blood Gas Sample Type Arterial; Carboxyhemoglobin 0.8 %THgb (0.4-20.1); HCO3 ABG 25.9 mmol/L (22-26); HGB O2 Sat 86.1 % (95-100); Ionized Calcium Level - ABG 1.1 mmol/L (1.1-1.4); Methemoglobin 0.4 % (0.4-1.5); Oxygen Saturation ABG 87.1; PO2 ABG 48.8 mmHg (80.0-100.0); Potassium Level - ABG 3.4 mmol/L (3.5-5.0); Total Hemoglobin 12.5 g/dL (12-16)
[2020-11-04 09:42] LABS: D Dimer 1.11 ug/mIFEU (0-0.59)
[2020-11-04 09:48] LABS: Alanine Aminotransferase 26 U/L (0-33); Albumin Level 2.9 g/dL (3.5-5.2); Alkaline Phosphatase 65 IU/L (35-105); Anion Gap 16.5 (5-19); Aspartate Amino Transferase 35 U/L (0-32); Blood Urea Nitrogen 11 mg/dL (6-20); C Reactive Protein 109.6 mg/L (0.0-4.9); Calcium 7.9 mg/dL (8.5-10.5); Carbon Dioxide 26 mmol/L (22-29); Chloride 94 mmol/L (98-107); Globulin 3.5 g/dL (1.3-4.6); Glomerular Filtration Rate 67.7 mL/min (90-130); Glucose 114 mg/dL (65-115); Lactic Sepsis W/Reflex 1.9 mmol/L (0.5-2.2); Osmolality Calculated 276 mOsm/kg (285-295); Potassium 3.5 mmol/L (3.5-5.1); Sodium 133 mmol/L (136-145); Total Bilirubin 0.4 mg/dL (0.15-1.2); Total Protein 6.4 g/dL (6.6-8.7)
[2020-11-04] MEDS: LORazepam 2 mg/mL INJ 1 mL 1 MG IVP ×2 (09:53→12:47)
[2020-11-04 10:12] LABS: Slide Review Slide Review Perform
[2020-11-04 10:16] LABS: Neutrophils % 83.3 %
--- NOTE | 2020-11-04 11:57 | P.HP_ITS ---
Providers/Chief Complaint Primary Care Provider: Magdi Ricks MD Chief Complaint: covid +, sob History of Present Illness Melina Hopkins is a 45 year old female who has a history of type 1 diabetes, hypertension, coronary disease status post stent placement was diagnosed with COVID-19 on Wednesday 11/01 presented with worsening of her symptoms. She started experiencing multiple episodes of nausea and vomiting associated with diarrhea. She is also endorsing subjective fevers and worsening of her shortness of breath with hypoxia. Any kind of movement aggravate her symptoms and make her hypoxic. She has not taken her medications in last 24 hours Because of worsening of her symptoms she decided to come to the hospital for further evaluation. She was saturating 80% on arrival and was transitioned to high flow nasal cannula 50% 100% FiO2 which is keeping her O2 saturation between 85 to 89% she has a rash all over her body which she is attributing to Plavix, it has been discontinued now she is on Brilinta. No active chest pain. Diagnostics in the ER revealed high inflammatory markers, high D-dimer I have requested CTA chest to rule out PE requested Decadron remdesivir and interleukin-6 inhibitor dose Chest x-ray showing worsening of infiltrates Review of Systems Const: Reports: fever(s), chills, body aches and change in appetite Eyes: Denies: change in vision ENMT: Denies: throat pain Card: Reports: dyspnea on exertion and orthopnea; Denies: chest pain Resp: Reports: dyspnea GI: Reports: abdominal pain, nausea and vomiting : Denies: flank pain Musc: Denies: neck pain Skin/Breast: Reports: rash and changing lesions Neuro: Denies: headache(s) Psych: Reports: anxiety Endo: Denies: polyuria Alonzo/Lymph: Denies: easy bruising All/Imm: Denies: urticaria Medications/Allergies Home Medications Medication Instructions Recorded Confirmed Last Taken Type levothyroxine 150 mcg PO QAM 09/11/20 11/04/20 11/04/20 07:00 History losartan 100 mg PO QAM 09/11/20 11/04/20 11/04/20 07:00 History montelukast 10 mg PO DAILY 09/11/20 11/04/20 10/30/20 History Omnipod Insulin Management 09/16/20 11/04/20 Unknown History famotidine 20 mg PO DAILY 09/16/20 11/04/20 11/04/20 07:00 History duloxetine 60 mg capsule,delayed 60 mg PO QAM 09/21/20 11/04/20 11/04/20 07:00 History release sprinkle ticagrelor 90 mg tablet 90 mg PO BID #60 tab 10/11/20 11/04/20 11/04/20 07:00 Rx hydrochlorothiazide 12.5 mg tablet 12.5 mg PO DAILY PRN #30 tab 10/17/20 11/04/20 11/04/20 07:00 Rx atorvastatin 20 mg PO QAM 10/31/20 11/04/20 11/04/20 07:00 History nitroglycerin 0.4 mg SUBLINGUAL Q5M PRN 10/31/20 11/04/20 Unknown History ondansetron 4 mg PO Q8H PRN #20 tab 11/01/20 11/04/20 11/04/20 Rx nebulizers #1 ea 11/02/20 11/04/20 Unknown Rx albuterol sulfate 1.25 mg/3 mL 1.25 mg INHALATION QID PRN #90 ml 11/03/20 11/04/20 11/04/20 Rx solution for nebulization acetaminophen [Tylenol Extra 1,000 mg PO PRN 11/04/20 11/04/20 Unknown History Strength] aspirin 81 mg PO QAM 11/04/20 11/04/20 11/04/20 07:00 History insulin lispro See Rx Instructions .ROUTE .COMPLEX 11/04/20 11/04/20 Unknown History metoprolol tartrate 25 mg PO Q12H 11/04/20 11/04/20 11/04/20 07:00 History omega-3 fatty acids [Prompton 3] 1,000 mg PO BID 11/04/20 11/04/20 11/04/20 07:00 History Allergies Allergy/AdvReac Type Severity Reaction Status Date / Time clopidogrel Allergy Intermediate rash Verified 11/04/20 11:46 sulfamethoxazole Allergy Unknown Verified 11/04/20 11:46 [From Bactrim] trimethoprim [From Bactrim] Allergy Unknown Verified 11/04/20 11:46 vancomycin Allergy Unknown Verified 11/04/20 11:46 codeine AdvReac ADR-Vomitin Verified 11/04/20 11:46 g PFSH Acute PFSH: Medical History CAD (coronary artery disease) Diabetic retinopathy DM type 1 (diabetes mellitus, type 1) Dyslipidemia Gestational hypertension Hypothyroidism Obesity Surgical History History of appendectomy (08/05/14) with lysis of adhesions History of History of cholecystectomy History of eye surgery multiple both eyes for retinopathy, legally blind right eye S/P cardiac catheterization (09/11/20) S/P coronary artery stent placement (09/11/20) Family History Father CAD (coronary artery disease) Diabetes FH: CABG (coronary artery bypass surgery) x3 Arthritis Social History Alcohol intake: never Adopted: No Marital status: Number of children: 1 service: No History of recent travel: No Female Reproductive History: Date of last menstrual period: 08/30/20 Para: 1 Vitals/I&O/Wt Last Vital Signs Temp 98.4 F 11/04/20 08:54 Pulse 111 H 11/04/20 11:30 Resp 22 H 11/04/20 11:30 BP 141/56 11/04/20 11:30 Pulse Ox 94 11/04/20 11:30 Weight last 48 hrs Weight 81.647 kg Physical Exam Narrative: EXAM NARRATIVE: Young female who was saturating 85% on 50 L 100% FiO2, appears stated age No active chest pain S1, S2 sinus tachycardia Visceral obesity abdomen soft nontender peritonitis Macular rash all over her body EOMI, PERRLA No neurological deficit Awake alert Anxious appearing Gets easily short of breath on movement No joint swelling No sign of cellulitis Bilateral breath sounds with rhonchi and crepitation Data : 11/04/20 08:54 11/04/20 08:54 A&P Assessment and plan (1) COVID-19: Status: Acute (2) DM type 1 (diabetes mellitus, type 1): Status: Acute Qualifiers: Diabetes mellitus complication status: without complication Qualified Code(s): E10.9 - Type 1 diabetes mellitus without complications (3) Hypothyroidism: Status: Acute (4) CAD (coronary artery disease): Status: Acute Qualifiers: Coronary Disease-Associated Artery/Lesion type: [place] artery [place] vs. transplanted heart: [place] heart Associated angina: without angina Qualified Code(s): I25.10 - Atherosclerotic heart disease of [place] coronary artery without angina pectoris (5) Drug-induced skin rash: Status: Acute Additional A&P Information Acute hypoxia with COVID-19 pneumonia Tested positive on 11/01 Worsening infiltrate on chest x-ray High inflammatory markers currently on 50 L 100% saturating 85% I have requested CTA to rule out PE We will start remdesivir, Decadron and interleukin-6 inhibitor dose x1 We do not have ICU beds but would prefer her to stay in ICU once we have beds, for now we will keep her in Covid unit, encourage patient for proning Start vitamin C, zinc and Ventolin Type 1 diabetes I will keep her on high-dose sliding scale patient is adamant that she would like to use her own insulin pump I counseled her that every time she gets any sliding scale she should let the nurse know as well to avoid extra dosages With steroids I am expecting her sugar will stay higher for high-dose statin scale has been chosen Hypothyroidism: Continue home regimen of levothyroxine Drug-induced skin rash: Patient developed rash to Plavix and this has been resolving after the discontinuation currently she is taking Brilinta Established coronary artery disease with stent Continue aspirin, Brilinta and statins Full code Consistent carb diet DVT prophylaxis I will start therapeutic dose of Lovenox for now considering high D-dimer follow-up with CTA chest Attestations Medical Necessity Statement*: Anticipating stay in the hospital p.o. more than 2 midnights Time Spent in Patient Care: 16 - 35 minutes Coding Level of Care Code Acute Donor Services Technician for g Fwd Diagnoses COVID-19 U07.1 DM type 1 (diabetes mellitus, type 1) E10.9 Diabetes mellitus complication status: without complication Hypothyroidism E03.9 CAD (coronary artery disease) I25.10 Coronary Disease-Associated Artery/Lesion type: [place] artery [place] vs. transplanted heart: [place] heart Associated angina: without angina Drug-induced skin rash L27.0
[2020-11-04 12:44] LABS: Urine Appearance Cloudy (CLEAR); Urine Color Yellow (Yellow); pH Urine 6 (5-7)
[2020-11-04 12:45] LABS: Bilirubin Urine Neg (Negative); Blood Urine 2+ (Negative); Glucose Urine UA Norm (Normal); Ketones Urine 2+ (Negative); Leukocyte Esterase Urine Negative (Negative); Nitrate Urine Negative (Negative); Protein Urine 3+ (Negative); Urobilinogen Urine Norm (Negative)
[2020-11-04 12:46] LABS: Add Urine Culture? No; Bacteria Urine 2+ /hpf; Mucus Urine 2+ /hpf; Squamous Epithelial Cell Urine 80-100 /hpf (0-5)
[2020-11-04] MEDS: dexamethasone 10 mg/mL INJ 6 MG IVP (12:47)
[2020-11-04] MEDS: remdesivir 200 MG in sodium chloride 0.9% (100 ml) 100 ML 100 MG IV (13:47)
[2020-11-04 15:21] LABS: Procalcitonin 0.27 ng/mL (0-0.5)
--- NOTE | 2020-11-04 16:47 | CTR_ITS ---
PROCEDURE INFORMATION: Exam: CTA Chest With Contrast Exam date and time: 11/04/2020 4:47 PM Age: 45 years old Clinical indication: Cough and shortness of breath; Additional info: Hypoxia TECHNIQUE: Imaging protocol: Computed tomographic angiography of the chest with contrast. 3D rendering (Not supervised by radiologist): MIP and/or 3D reconstructed images were created by the technologist. Radiation optimization: All CT scans at this facility use at least one of these dose optimization techniques: automated exposure control; mA and/or kV adjustment per patient size (includes targeted exams where dose is matched to clinical indication); or iterative reconstruction. Contrast material: OMNIPAQUE 350; Contrast volume: 59 ml; Contrast route: INTRAVENOUS (IV); COMPARISON: CT angio chest PE protcl [id number] 10/31/2020 10:59 PM RADIATION DOSE METRICS: Total DLP (mGy-cm): 482.67 FINDINGS: Pulmonary arteries: Normal. No pulmonary emboli. Aorta: Unremarkable. No aortic aneurysm. No aortic dissection. Lungs: Widely distributed extensive ground-glass airspace disease throughout both lungs. Negative for endobronchial occlusion. Scattered crazy paving changes with mild interstitial thickening. Pleural spaces: Unremarkable. No pneumothorax. No pleural effusion. Heart: Unremarkable. No cardiomegaly. No pericardial effusion. Lymph nodes: Unremarkable. No enlarged lymph nodes. Bones/joints: Unremarkable. No acute fracture. Soft tissues: Unremarkable. CT/CT angio chest PE protcl [id number] IMPRESSION: 1. Negative for pulmonary embolism. 2. Widespread nonspecific ground-glass airspace disease. 3. Imaging features can be seen with COVID-19 pneumonia, though are nonspecific and can occur with a variety of infectious and noninfectious processes. (Reference: Torey) REFERENCES: Torey Strong et al., Radiological Society of [place] Expert Consensus Statement on Reporting Chest CT Findings Related to COVID-19. Endorsed by the Society of Thoracic Radiology, the [place] [employer], and RSNA. Published June 30, 2019. Radiation Dose CTDIVOL = (mGy): DLP = 482.67 (mGy-cm)
--- NOTE | 2020-11-04 17:00 | PC.NURSE ---
Attempted to call report, no staff or beds available at this time.
[2020-11-04] MEDS: iohexol 350 mg/mL 100 mL Btl IV (17:16)
--- NOTE | 2020-11-04 18:59 | PC.NURSE ---
Attempted to call report to 2A. Unable to call report.
[2020-11-04] MEDS: ascorbic acid 500 mg Tablet 1000 MG PO (19:40)
[2020-11-04] MEDS: ticagrelor 90 mg Tablet PO (19:41)
[2020-11-04] MEDS: enoxaparin 80 mg/0.8 mL Syringe SUBCUT (19:41)
[2020-11-04] MEDS: metoprolol tartrate 25 mg Tablet PO ×2 (19:41→19:42)
[2020-11-04] MEDS: morphine 4 mg/mL SDV 1 mL 2 MG IVP ×2 (19:46→23:33)
[2020-11-05] VITALS (7 sets, daily range): PULSE 68–102; RESP 22–37; O2SAT 86–93
[2020-11-05 00:13] LABS: ABG PCO2 40.9 mmHg (35-45); ABG PH Result 7.45 (7.35-7.45); Arterial Blood Gas Hematocrit 47.1 % (37-47); Blood Gas Allen Test Pos; Blood Gas Sample Site Brachial, right; Blood Gas Sample Type Arterial; HCO3 ABG 28.4 mmol/L (22-26); PO2 ABG 84.3 mmHg (80.0-100.0)
[2020-11-05] MEDS: albuterol 8 gm MDI 2 PUFF INHALATION (05:28)
[2020-11-05] MEDS: atorvastatin 40 mg Tablet 20 MG PO (05:57)
[2020-11-05] MEDS: enoxaparin 80 mg/0.8 mL Syringe SUBCUT (05:57)
[2020-11-05] MEDS: levothyroxine 150 mcg Tablet PO (05:57)
[2020-11-05] MEDS: losartan 50 mg Tablet 100 MG PO (05:57)
[2020-11-05] MEDS: aspirin 81 mg EC Tablet PO (05:57)
[2020-11-05] MEDS: metoprolol tartrate 25 mg Tablet PO ×2 (06:09→18:18)
[2020-11-05] MEDS: remdesivir 100 MG in sodium chloride 0.9% (100 ml) 100 ML IV (06:22)
[2020-11-05 07:00] LABS: Hematocrit 36.3 % (37.0-47.0); Hemoglobin 11.8 g/dL (11.5-15.3); Mean Corpuscular HGB Conc 32.5 g/dL (30.0-36.0); Mean Corpuscular Hemoglobin 28.8 pg (28.0-34.0); Mean Corpuscular Volume 88.5 fL (81-99); Mean Platelet Volume 10.6 fL (7.4-10.4); Platelet Count 318 10^3/cmm (130-400); Red Cell Distribution Width 13.5 % (12.1-15.1); White Blood Count 5.3 10^3/uL (4.0-10.0)
--- NOTE | 2020-11-05 07:07 | PC.NURSE ---
Patient was admitted overnight from ER. Patient alert and oriented X4. Has Dexcom and Omnipod devices on. Patient spent and uneventful shift last pm. Remains on 60L/100% Heated high flow oxygen. Unble to wean patient oxygen level. Remdesivir infusing. Nil complaint. Observation continues.
[2020-11-05 07:33] LABS: Alanine Aminotransferase 20 U/L (0-33); Albumin Level 2.6 g/dL (3.5-5.2); Alkaline Phosphatase 60 IU/L (35-105); Anion Gap 14.8 (5-19); Aspartate Amino Transferase 32 U/L (0-32); Blood Urea Nitrogen 15 mg/dL (6-20); Calcium 7.6 mg/dL (8.5-10.5); Carbon Dioxide 26 mmol/L (22-29); Chloride 93 mmol/L (98-107); Globulin 3.6 g/dL (1.3-4.6); Glomerular Filtration Rate 90.5 mL/min (90-130); Glucose 186 mg/dL (65-115); Osmolality Calculated 276 mOsm/kg (285-295); Potassium 3.8 mmol/L (3.5-5.1); Sodium 130 mmol/L (136-145); Total Bilirubin 0.3 mg/dL (0.15-1.2); Total Protein 6.2 g/dL (6.6-8.7)
[2020-11-05 07:38] LABS: C Reactive Protein 114.1 mg/L (0.0-4.9)
[2020-11-05 07:56] LABS: Ferritin 1390 ng/mL (15-150)
[2020-11-05] MEDS: ticagrelor 90 mg Tablet PO ×2 (09:43→18:18)
[2020-11-05] MEDS: famotidine 20 mg Tablet PO (09:43)
[2020-11-05] MEDS: ascorbic acid 500 mg Tablet 1000 MG PO ×2 (09:43→18:29)
[2020-11-05] MEDS: zinc gluconate 50 mg Tablet PO (09:43)
[2020-11-05] MEDS: sennosides-docusate Tablet 1 TAB PO (09:43)
[2020-11-05 09:52] LABS: Slide Review Slide Review Perform
[2020-11-05] MEDS: morphine 4 mg/mL SDV 1 mL 2 MG IVP ×2 (09:55→18:45)
[2020-11-05 09:56] LABS: Absolute Segmented Neutrophil 3.2 10/cmm (1.6-7.1); Band Neutrophils Absolute 0.3 10^3/cmm (0.0-1.2); Lymphocytes 22 %; Lymphocytes Absolute 1.3 10^3/cmm (1.2-3.4); Monocytes Absolute 0.2 10^3/cmm (0.1-0.6); Segmented Neutrophils 60 %; Total Cells Counted 100 (0-100)
[2020-11-05 09:58] LABS: Blastocytes 1 % (0-0); Eosinophils 0 %
[2020-11-05 09:59] LABS: Absolute Neutrophil 3.4 10^3/cmm (1.4-6.5); Giant Platelets Trace; Platelet Estimate Normal (Normal)
--- NOTE | 2020-11-05 10:24 | PM.PN ---
Subjective Subjective: Interval history: Patient was seen and examined this morning, patient is on heated high flow requiring 60 L 100% which was increased this morning when she was experiencing respiratory distress and hypoxia she was also put on nonrebreather mask At the time my evaluation she was saturating 100% respiratory therapist to wean down her oxygen Patient had breakfast in front of her, did not endorse any chest pain or shortness of breath at the time of my evaluation Afebrile no events over night Vitals/I&O/Wt Last Vital Signs Temp 98.4 F 11/04/20 08:54 Pulse 91 11/05/20 06:00 Resp 31 H 11/05/20 09:55 BP 136/57 11/04/20 15:00 Pulse Ox 92 11/05/20 05:35 11/04/20 11/05/20 11/05/20 22:59 06:59 14:59 Intake Total 180 / 280 Output Total 510 / 510 Balance -330 / -230 Weight last 48 hrs Weight 81.647 kg Physical Exam Narrative: EXAM NARRATIVE: Patient was sitting in her bed with breakfast tray in front of her Saturating well 100% on nonrebreather mask and heated high flow 60 L 100% FiO2 S1, S2 sinus rhythm Diffuse macular rash without any signs of cellulitis Bilateral breath sounds without adventitious rhonchi or crepitations Abdomen soft no signs of peritonitis Lower extremity no edema EOMI, PERRLA Data : 11/05/20 06:35 11/05/20 06:35 A&P Assessment and plan (1) Hyperglycemia due to type 1 diabetes mellitus: Status: Acute (2) COVID-19: Status: Acute (3) Hypothyroidism: Status: Acute (4) CAD (coronary artery disease): Status: Acute Qualifiers: Coronary Disease-Associated Artery/Lesion type: [place] artery [place] vs. transplanted heart: [place] heart Associated angina: without angina Qualified Code(s): I25.10 - Atherosclerotic heart disease of [place] coronary artery without angina pectoris (5) Drug-induced skin rash: Status: Acute Additional A&P Information Acute hypoxia related to COVID-19 infection Tested positive on 11/01 CTA ruled out PE Currently on 60 L, FiO2 100% saturating 99 to 100% Inflammatory markers every 48 hours Wean off her oxygen PT evaluation Status post interleukin-6 inhibitor dose that was given yesterday, currently on remdesivir and Decadron regimen Type 1 diabetes: Euglycemic Patient is insisting that she would like to use her own insulin pump Patient to be notified before giving insulin through sliding scale Hypothyroidism continue home regimen Drug-induced rash Improved after getting steroids, patient stating that she developed thrombocytopenia and drug related rash to Plavix and improved when she started taking Brilinta, platelet count normal Established coronary disease No active chest pain, I would continue her dual antiplatelet therapy statins LAD stent Consistent carb/cardiac diet Full code DVT prophylaxis: Lovenox Attestations Medical Necessity Statement*: Continue medical management for hypoxia related COVID-19 Time Spent in Patient Care: less than 15 minutes Coding Level of Care Code Acute Cargo Bracer for Chg Fwd Diagnoses Hyperglycemia due to type 1 diabetes mellitus E10.65 COVID-19 U07.1 Hypothyroidism E03.9 CAD (coronary artery disease) I25.10 Coronary Disease-Associated Artery/Lesion type: [place] artery [place] vs. transplanted heart: [place] heart Associated angina: without angina Drug-induced skin rash L27.0
[2020-11-05] MEDS: enoxaparin 40 mg/0.4 mL Syringe SUBCUT (13:56)
[2020-11-05] MEDS: dexamethasone 10 mg/mL INJ 6 MG IVP (14:13)
[2020-11-05 15:23] LABS: Glucose Point of Care 236 mg/dL (70-110)
[2020-11-05 15:23] LABS: Glucose Point of Care 327 mg/dL (70-110)
[2020-11-05 16:26] LABS: Glucose Point of Care 176 mg/dL (70-110)
--- NOTE | 2020-11-05 18:57 | PM.EVENT ---
Event Note Event Note: patient took off her bipap and desaturated quickly in 70s. Rapid was called. pt refused bipap. she agreed for HHF and NRB combination. current sat 92%.pt to be transferred to ICU for overnight monitoring
--- NOTE | 2020-11-05 19:57 | PC.NURSE ---
Pt was assisted to bedside commode when pt decided to take bipap off after urinating and stating she 'could not take it anymore' and that she could not have it placed back on. nurse tried to calm pt so this nurse was able to place bipap back on, bess Cardoso came in and i informed her i needed respiratory. MOISES Trejo came in and assisted this nurse, respiratory applied nonrebreather with high flow oxygen and PRN morphine was given for air hunger to help calm the patient. she was taken to ICU 102, Bedside report was given to Alisha DE LEON. Joaquin ramos was notified of transfer.
[2020-11-05 20:57] LABS: Glucose Point of Care 78 mg/dL (70-110)
--- NOTE | 2020-11-05 23:07 | P.EN_ITS ---
Event Note Event Note: called to ICU to report patient was desaturating down to 60s. Kept pulling her Bipap off, had already pulled off HFNC earlier today. She was restrained. Decision was made to intubate due to impending respiratory arrest and inability to oxygenate via non invasive measures. While proceeding to [facility], patient had cardiac arrest, CPR was started per ACLS protocol. 25 min of CPR was given, multiple pushes of epi and 2 pushes of atropine. In spite of all resuscitative measures, patient could not be revived. No cardiac activity was noted. Patient was declared at 2241 on 11/05/20
--- NOTE | 2020-11-05 23:31 | PC.NURSE ---
Flip Paredes at [facility] - pt is full release for MTS and Saving Site.
--- NOTE | 2020-11-06 00:46 | PC.NURSE ---
Change in condition. Patient resting in bed and tried laying on stomach to help with oxygenation issues. Nurse was in room with patient. Patient turned to stomach and was doing good. Patient then became confused and kept taking oxygen off. Nurse kept helping patient put oxygen back on and reassuing patient. Patient still very confused and continued to rip off oxygen. This nurse went to door and yelled for help, RT and other staff assisted in helping keep patient calm and reapply oxygen. Called Dr. Alas 3x due to patients agitation and unable to oxygenate. When Bishop arrived she called Dr. Vargas from the ER to intubate patient.
--- NOTE | 2020-11-06 00:50 | PC.NURSE ---
Code Event Patient being intubated per Dr. Vargas. 20mg of Etomidate given at 2211 and 100mg of Succ given per IV and orders Dr. Vargas intubated and received color change, however patient was not oxygenating. Patient continued to desat, and went asystole. Code called at 2217 and CPR began 2218-Epi in 0-pulse check, 0 pulse 2221-0 pulse, epi given 2222-pulse check, 0, started NS bolus 3-Pulse check, 0 pulse PEA 2224-epi given 5-pulse check, 0 pulse, cpr continues 2226-0 pulse 2227-Epi in, cpr continues 2228-0 pulse, PEA 2229-Glucose check 137 2230-Epi in, pulse check, zoll showed afib rvr, 0 heart wave movement with ultrasound 2-Pulse check 80-120 PEA, 0 pulse 2233-epi in 2234-pulse check, Pulse 38 BPM 2235-Atropine in 6-CPR resumed 7-Pulse 12 2238-Epi given, CPR resumed 2240-0 pulse, 0 ultrasound [address] Alas.
[2020-11-06 01:00] LABS: Glucose Point of Care 133 mg/dL (70-110)
[2020-11-06] MEDS: haloperidol inj 5 mg/mL INJ 1 mL 4 MG IVP (01:09)
[2020-11-06] MEDS: LORazepam 2 mg/mL INJ 1 mL IVP (01:09)
[2020-11-06] MEDS: succinylcholine 20 mg/mL SDV 10mL 100 MG IVP (01:28)
--- NOTE | 2020-11-06 01:29 | PC.NURSE ---
sent home with samuel ramos
--- NOTE | 2020-11-06 01:30 | PC.NURSE ---
Patient released to home [facility] @ [id number]
--- NOTE | 2020-11-06 07:33 | ED_ITS ---
HPI - CPR General: Chief Complaint: ER Hold Stated Complaint: covid +, sob Time Seen by Provider: 11/04/20 08:44 History of Present Illness: HPI narrative: Called to assist with intubation to the ICU due to patient continuing to desaturate oxygenation while on BiPAP. She was struggling, had become hypoxic, and was trying to remove BiPAP and other oxygenating devices as well as her IV. [facility] ED PFSH: Medical History CAD (coronary artery disease) Diabetic retinopathy DM type 1 (diabetes mellitus, type 1) Dyslipidemia Gestational hypertension Hypothyroidism Obesity Surgical History History of appendectomy (08/05/14) with lysis of adhesions History of History of cholecystectomy History of eye surgery multiple both eyes for retinopathy, legally blind right eye S/P cardiac catheterization (09/11/20) S/P coronary artery stent placement (09/11/20) Family History Father CAD (coronary artery disease) Diabetes FH: CABG (coronary artery bypass surgery) x3 Arthritis Social History Alcohol intake: never Adopted: No Marital status: Number of children: 1 service: No History of recent travel: No Female Reproductive History: Date of last menstrual period: 08/30/20 Para: 1 Procedures Intubation Time out performed: No sedative: Etomidate Mg Given: 20 paralytic: Succinylcholine Mg Given: 100 Laryngoscope: Rox (4) Assist Device Used: fiber optic device ET Tube Size: 8 ET Tube Uncuffed: No Tube Secured Depth (cm): 25 Tube Secured Location: lips Tube Placement Confirmation: visualized tube passing through cords, equal breath sounds bilaterally and confirmation by capnometry (Positive color change) Intubation Complications: difficult intubation and other Additional Comments: Shortly after intubation, the patient was noted to desaturate, and she became bradycardic. Bradycardia proceeded despite atropine, to asystole. CPR was started immediately with chest compressions. Epinephrine was given. There was concern over dislodgment of the ET tube, so the tube was removed. [id number] was used for oxygenation, until another attempt at intubation could be made during CPR. Repeat attempt failed due to significant airway edema, anterior positioning, and friable tissue. A call for surgical cricothyroidotomy kit was made. Prior to this, airway was reestablished using an ET tube. By this time, the patient had been in asystole for some time. Pulse was never reestablished. No rhythm other than asystole was obtained. Code was pronounced by the hospitalist. Course Vital Signs: Vital signs: Vital Signs Temperature 98.4 F 11/04/20 08:54 Pulse Rate 102 H 11/05/20 21:24 Respiratory Rate 22 H 11/05/20 21:24 Blood Pressure 136/57 11/04/20 15:00 Pulse Oximetry 86 L 11/05/20 21:24 MDM - Cardiac Arrest/CPR Lab Data: Labs: Lab Results 11/04/20 11/04/20 11/04/20 Range/Units 08:54 08:54 08:54 WBC 8.8 (4.0-10.0) 10^3/ uL RBC 4.41 (4.1-5.3) 10^6/u L Hgb 12.7 (11.5-15.3) g/dL Hct 38.6 (37.0-47.0) % MCV 87.5 (81-99) fL MCH 28.8 (28.0-34.0) pg MCHC 32.9 (30.0-36.0) g/dL RDW 13.4 (12.1-15.1) % Plt Count 297 (130-400) 10^3/c mm MPV 10.7 H (7.4-10.4) fL Neut % (Auto) 83.3 % Lymph % (Auto) 9.7 % [place] % (Auto) 4.2 % Eos % (Auto) 2.3 % Baso % (Auto) 0.5 % Neut # (Auto) 6.73 (1.8-7.7) 10^3/u L Lymph # (Auto) 0.9 (0.8-4.8) 10^3/u L [place] # (Auto) 0.4 (0.2-0.9) 10^3/u L Eos # (Auto) 0.2 (0.0-0.8) 10^3/u L Baso # (Auto) 0.0 (0.0-0.1) 10^3/u L Nucleated RBC % (a uto) 0 % Nucleated RBCs # 0.0 /100WBC D-Dimer 1.11 H (0-0.59) ug/mIFE U Specimen Type Sample Site ABG pH (7.35-7.45) ABG pCO2 (35-45) mmHg ABG pO2 (80.0-100.0) mmH g ABG HCO3 (22-26) mmol/L ABG O2 Saturation ABG Base Excess (-2.0-2.0) mmol/ L Calderon Test A-a O2 Gradient (5-10) mmHg Hematocrit (37-47) % Hgb O2 Saturation (95-100) % Carboxyhemoglobin (0.4-20.1) %THgb Methemoglobin (0.4-1.5) % Total Hemoglobin (12-16) g/dL Ionized Calcium (1.1-1.4) mmol/L O2 Liters/Min % FiO2 % Satellite Television Installer ID Sodium 133 L (136-145) mmol/L Potassium 3.5 (3.5-5.1) mmol/L Chloride 94 L (98-107) mmol/L Carbon Dioxide 26 (22-29) mmol/L Anion Gap 16.5 (5-19) BUN 11 (6-20) mg/dL Creatinine 0.9 (0.5-0.9) mg/dL GFR Calculation 67.7 L (90-130) mL/min Glucose 114 (65-115) mg/dL Calculated Osmolal ity 276 L (285-295) mOsm/k g Lactic Acid (0.5-2.2) mmol/L Calcium 7.9 L (8.5-10.5) mg/dL Total Bilirubin 0.4 (0.15-1.2) mg/dL AST 35 H (0-32) U/L ALT 26 (0-33) U/L Alkaline Phosphata se 65 (35-105) IU/L C-Reactive Protein 109.6 H (0.0-4.9) mg/L Total Protein 6.4 L (6.6-8.7) g/dL Albumin 2.9 L (3.5-5.2) g/dL Globulin 3.5 (1.3-4.6) g/dL Procalcitonin (0-0.5) ng/mL Urine Color (Yellow) Urine Appearance (CLEAR) Urine pH (5-7) Ur Specific Gravit y (1.005-1.030) Urine Protein (Negative) Urine Glucose (UA) (Normal) Urine Ketones (Negative) Urine Blood (Negative) Urine Nitrate (Negative) Urine Bilirubin (Negative) Urine Urobilinogen (Negative) mg/dL Ur Leukocyte Holly ase (Negative) Urine RBC (0-2) /hpf Urine WBC (0-5) /hpf Ur Squamous Epith Cells (0-5) /hpf Amorphous Sediment Urine Bacteria (NONE) /hpf Urine Mucus /hpf Urine Yeast /hpf 11/04/20 11/04/20 11/04/20 Range/Units 08:54 08:54 09:12 WBC (4.0-10.0) 10^3/ uL RBC (4.1-5.3) 10^6/u L Hgb (11.5-15.3) g/dL Hct (37.0-47.0) % MCV (81-99) fL MCH (28.0-34.0) pg MCHC (30.0-36.0) g/dL RDW (12.1-15.1) % Plt Count (130-400) 10^3/c mm MPV (7.4-10.4) fL Neut % (Auto) % Lymph % (Auto) % [place] % (Auto) % Eos % (Auto) % Baso % (Auto) % Neut # (Auto) (1.8-7.7) 10^3/u L Lymph # (Auto) (0.8-4.8) 10^3/u L [place] # (Auto) (0.2-0.9) 10^3/u L Eos # (Auto) (0.0-0.8) 10^3/u L Baso # (Auto) (0.0-0.1) 10^3/u L Nucleated RBC % (a uto) % Nucleated RBCs # /100WBC D-Dimer (0-0.59) ug/mIFE U Specimen Type Arterial Sample Site Brachial, right ABG pH 7.53 H (7.35-7.45) ABG pCO2 31.3 L (35-45) mmHg ABG pO2 48.8 L (80.0-100.0) mmH g ABG HCO3 25.9 (22-26) mmol/L ABG O2 Saturation 87.1 ABG Base Excess 3.5 H (-2.0-2.0) mmol/ L Calderon Test Pos A-a O2 Gradient 71.8 H (5-10) mmHg Hematocrit 38.2 (37-47) % Hgb O2 Saturation 86.1 L (95-100) % Carboxyhemoglobin 0.8 (0.4-20.1) %THgb Methemoglobin 0.4 (0.4-1.5) % Total Hemoglobin 12.5 (12-16) g/dL Ionized Calcium 1.1 (1.1-1.4) mmol/L O2 Liters/Min 45.0 % FiO2 90.0 % Satellite Television Installer ID jmn Sodium 133.0 (136-145) mmol/L Potassium 3.4 L (3.5-5.1) mmol/L Chloride (98-107) mmol/L Carbon Dioxide (22-29) mmol/L Anion Gap (5-19) BUN (6-20) mg/dL Creatinine (0.5-0.9) mg/dL GFR Calculation (90-130) mL/min Glucose 143.0 H (65-115) mg/dL Calculated Osmolal ity (285-295) mOsm/k g Lactic Acid 1.9 (0.5-2.2) mmol/L Calcium (8.5-10.5) mg/dL Total Bilirubin (0.15-1.2) mg/dL AST (0-32) U/L ALT (0-33) U/L Alkaline Phosphata se (35-105) IU/L C-Reactive Protein (0.0-4.9) mg/L Total Protein (6.6-8.7) g/dL Albumin (3.5-5.2) g/dL Globulin (1.3-4.6) g/dL Procalcitonin 0.27 (0-0.5) ng/mL Urine Color (Yellow) Urine Appearance (CLEAR) Urine pH (5-7) Ur Specific Gravit y (1.005-1.030) Urine Protein (Negative) Urine Glucose (UA) (Normal) Urine Ketones (Negative) Urine Blood (Negative) Urine Nitrate (Negative) Urine Bilirubin (Negative) Urine Urobilinogen (Negative) mg/dL Ur Leukocyte Holly ase (Negative) Urine RBC (0-2) /hpf Urine WBC (0-5) /hpf Ur Squamous Epith Cells (0-5) /hpf Amorphous Sediment Urine Bacteria (NONE) /hpf Urine Mucus /hpf Urine Yeast /hpf 11/04/20 Range/Units 10:19 WBC (4.0-10.0) 10^3/ uL RBC (4.1-5.3) 10^6/u L Hgb (11.5-15.3) g/dL Hct (37.0-47.0) % MCV (81-99) fL MCH (28.0-34.0) pg MCHC (30.0-36.0) g/dL RDW (12.1-15.1) % Plt Count (130-400) 10^3/c mm MPV (7.4-10.4) fL Neut % (Auto) % Lymph % (Auto) % [place] % (Auto) % Eos % (Auto) % Baso % (Auto) % Neut # (Auto) (1.8-7.7) 10^3/u L Lymph # (Auto) (0.8-4.8) 10^3/u L [place] # (Auto) (0.2-0.9) 10^3/u L Eos # (Auto) (0.0-0.8) 10^3/u L Baso # (Auto) (0.0-0.1) 10^3/u L Nucleated RBC % (a uto) % Nucleated RBCs # /100WBC D-Dimer (0-0.59) ug/mIFE U Specimen Type Sample Site ABG pH (7.35-7.45) ABG pCO2 (35-45) mmHg ABG pO2 (80.0-100.0) mmH g ABG HCO3 (22-26) mmol/L ABG O2 Saturation ABG Base Excess (-2.0-2.0) mmol/ L Calderon Test A-a O2 Gradient (5-10) mmHg Hematocrit (37-47) % Hgb O2 Saturation (95-100) % Carboxyhemoglobin (0.4-20.1) %THgb Methemoglobin (0.4-1.5) % Total Hemoglobin (12-16) g/dL Ionized Calcium (1.1-1.4) mmol/L O2 Liters/Min % FiO2 % Satellite Television Installer ID Sodium (136-145) mmol/L Potassium (3.5-5.1) mmol/L Chloride (98-107) mmol/L Carbon Dioxide (22-29) mmol/L Anion Gap (5-19) BUN (6-20) mg/dL Creatinine (0.5-0.9) mg/dL GFR Calculation (90-130) mL/min Glucose (65-115) mg/dL Calculated Osmolal ity (285-295) mOsm/k g Lactic Acid (0.5-2.2) mmol/L Calcium (8.5-10.5) mg/dL Total Bilirubin (0.15-1.2) mg/dL AST (0-32) U/L ALT (0-33) U/L Alkaline Phosphata se (35-105) IU/L C-Reactive Protein (0.0-4.9) mg/L Total Protein (6.6-8.7) g/dL Albumin (3.5-5.2) g/dL Globulin (1.3-4.6) g/dL Procalcitonin (0-0.5) ng/mL Urine Color Yellow (Yellow) Urine Appearance Cloudy (CLEAR) Urine pH 6 (5-7) Ur Specific Gravit y 1.010 (1.005-1.030) Urine Protein 3+ H (Negative) Urine Glucose (UA) Norm (Normal) Urine Ketones 2+ H (Negative) Urine Blood 2+ H (Negative) Urine Nitrate Negative (Negative) Urine Bilirubin Neg (Negative) Urine Urobilinogen Norm (Negative) mg/dL Ur Leukocyte Holly ase Negative (Negative) Urine RBC 5-10 H (0-2) /hpf Urine WBC 5-10 H (0-5) /hpf Ur Squamous Epith Cells 80-100 H (0-5) /hpf Amorphous Sediment Not Reportable Urine Bacteria 2+ H (NONE) /hpf Urine Mucus 2+ /hpf Urine Yeast 1+ H /hpf Discharge Plan Discharge Patient Disposition: Admitted As Inpatient Admit Provider: Jose L Poe Clinical Impression: COVID-19, DM type 1 (diabetes mellitus, type 1), CAD (coronary artery disease) Condition: Stable Coding Level of Care Code ED Rehab Liaison for Chente Harrell
[2020-11-06 09:29] LABS: Glucose Point of Care 216 mg/dL (70-110)
--- NOTE | 2020-11-07 08:03 | P.DES_ITS ---
Discharge Providers DDS Date of Admission: 11/04/20 11:37 Date Summary Completed: 11/07/20 Attending Provider at Admission: Jose L Poe MD Time of : 22:41 Attending Provider at Discharge: Jose L Poe MD Primary Care Provider: Magdi Ricks MD DS Diagnoses Hospital Diagnoses (1) Hyperglycemia due to type 1 diabetes mellitus: (2) COVID-19: (3) Hypothyroidism: (4) CAD (coronary artery disease): (5) Drug-induced skin rash: Reason for Visit Reason for Visit: covid +, sob Summary Date and Time of Date of : 11/05/20 Time of : 22:41 Summary Summary: 45-year female who got admitted for management of respiratory distress secondary to COVID-19 pneumonia, nonvaccinated, she was admitted to Covid unit however was transferred to ICU because of her noncompliance with BiPAP mask, a rapid response was called when she took off her BiPAP while using bedside commode, she was transferred to ICU around 7 PM. When she was put back on BiPAP she was saturating 92%. Her hypoxia and respiratory stress got worse in ICU overnight, green house manager Dr. Alas called ER physician Dr. Vargas for intubation. Please read ER physician note for further details. It was a difficult endotracheal intubation, because of prolonged hypoxia patient lost his pulse and CPR was started. After 25 minutes of CPR, she was declared at 2241 on 11/05/2020 Additional Data Confirmation of as documented by pronouncing clinician: no pulse Family: contacted Additional persons at bedside: nursing staff Attending/PCP notified?: Attending notified Was code activated?: Yes Autopsy requested?: No Advance directives?: No Hospice patient?: No Discharge Plan Discharge Patient Disposition: Condition: Stable DS Attestations Time Spent in /Discharge Care*: less than 30 min Quality - AMI: AMI present?: No Quality - Stroke: CVA present?: No Symptom Onset Unknown: No Quality - VTE: VTE present?: No Deep Vein Thrombosis/Pulmonary Embolism Present on Admission: No Coding Level of Care Code Acute Academic Director for Chg Fwd Diagnoses Hyperglycemia due to type 1 diabetes mellitus E10.65 COVID-19 U07.1 Hypothyroidism E03.9 CAD (coronary artery disease) I25.10 Drug-induced skin rash L27.0
--- NOTE | 2020-11-08 23:15 | P.DES_ITS ---
Discharge Providers DDS Date of Admission: 11/04/20 11:37 Date Summary Completed: 11/08/20 Attending Provider at Admission: Jose L Poe MD Time of : 22:41 Attending Provider at Discharge: Jose L Poe MD Primary Care Provider: Magdi Ricks MD DS Diagnoses Hospital Diagnoses (1) Hyperglycemia due to type 1 diabetes mellitus: (2) COVID-19: (3) Hypothyroidism: (4) CAD (coronary artery disease): (5) Drug-induced skin rash: Reason for Visit Reason for Visit: covid +, sob Summary Date and Time of Date of : 11/05/20 Time of : 22:41 Summary Summary: 45-year female who got admitted for management of respiratory distress secondary to COVID-19 pneumonia, nonvaccinated, she was admitted to Covid unit however was transferred to ICU because of her noncompliance with BiPAP mask, a rapid response was called when she took off her BiPAP while using bedside commode, she was transferred to ICU around 7 PM. When she was put back on BiPAP she was saturating 92%. Her hypoxia and respiratory stress got worse in ICU overnight, marking machine operator Dr. Alas called ER physician Dr. Vargas for intubation. Please read ER physician note for further details. It was a difficult endotracheal intubation, because of prolonged hypoxia patient lost his pulse and CPR was started. After 25 minutes of CPR, she was declared at 2241 on 11/05/2020 Additional Data Confirmation of as documented by pronouncing clinician: no pulse Family: contacted Additional persons at bedside: nursing staff Was code activated?: Yes Autopsy requested?: No Advance directives?: No Hospice patient?: No Discharge Plan Discharge Patient Disposition: Condition: Stable DS Attestations Time Spent in /Discharge Care*: less than 30 min Quality - AMI: AMI present?: No Quality - Stroke: CVA present?: No Symptom Onset Unknown: No Quality - VTE: VTE present?: No Deep Vein Thrombosis/Pulmonary Embolism Present on Admission: No Coding Level of Care Code Acute Gear Room Keeper for Chg Fwd Diagnoses Hyperglycemia due to type 1 diabetes mellitus E10.65 COVID-19 U07.1 Hypothyroidism E03.9 CAD (coronary artery disease) I25.10 Drug-induced skin rash L27.0
== END 2020-11-05 22:41 | disposition expired | DRG 177 ==
LOC: ER 14:51 → MS 2A 16:54 → ICU 11-05 19:04
PROVIDERS: Admitting Provider Internal Medicine; Emergency Provider Family Medicine; PCP Internal Medicine; Visit Provider Internal Medicine
DX: U07.1 COVID-19 (principal); J12.82 Pneumonia due to coronavirus disease 2019; J80 Acute respiratory distress syndrome; I46.9 Cardiac arrest, cause unspecified; E10.65 Type 1 diabetes mellitus with hyperglycemia; E10.319 Type 1 diabetes mellitus with unspecified diabetic retinopathy without macular edema; I10 Essential (primary) hypertension; I25.10 Atherosclerotic heart disease of native coronary artery without angina pectoris; Z95.5 Presence of coronary angioplasty implant and graft; L27.0 Generalized skin eruption due to drugs and medicaments taken internally; T45.525A Adverse effect of antithrombotic drugs, initial encounter; E78.5 Hyperlipidemia, unspecified; E03.9 Hypothyroidism, unspecified; E66.9 Obesity, unspecified; Z68.32 Body mass index [BMI] 32.0-32.9, adult; H54.40 Blindness, one eye, unspecified eye
CPT/HCPCS: 31500; 36415; 36416; 36600; 71045; 71275; 80051; 80053; 81001; 82330; 82728; 82803; 82805; 82962; 83605; 84145; 85007; 85025; 85378; 86140; 94640; 94660; 94664; 96372; 96374; 97110; 97161; 99285; J0171; J0330; J1100; J1265; J1630; J1650; J2060; J2270; J3262; J3490; J3535; Q9967